=== PATIENT | male | born 1950 | race Caucasian/White ===

== ENCOUNTER 2018-12-01 13:31 | Inpatient (IN) | payer MEDICARE | END 2018-12-05 11:35 | disposition home or self-care (01) | LOC: ER 13:31 → OVERFLOW 20:57 → EAST 21:54 | DX: N20.0 Calculus of kidney (principal); N39.0 Urinary tract infection, site not specified; R00.0 Tachycardia, unspecified; E66.01 Morbid (severe) obesity due to excess calories; E11.8 Type 2 diabetes mellitus with unspecified complications; G57.00 Lesion of sciatic nerve, unspecified lower limb; E78.00 Pure hypercholesterolemia, unspecified; N40.0 Benign prostatic hyperplasia without lower urinary tract symptoms; A49.02 Methicillin resistant Staphylococcus aureus infection, unspecified site; Z22.322 Carrier or suspected carrier of Methicillin resistant Staphylococcus aureus ==

== ENCOUNTER 2018-12-06 13:21 | Emergency (ER) | payer MEDICARE ==
[~2018-12-06] VITALS: Ht 175.3 cm; Wt 99.8 kg
[~2018-12-06 13:21] MED LIST: ATOR20TA50 PO; DOXY-216 PO; FLUO20CA19 PO; GABA300C10 PO; GLIP-115 PO; OXY10CRT PO; OXYB15TA12 PO; PREG50CA PO; SACC250C PO; SULF1TAB60 PO; TAMS0.4C36 PO; TIZA4CAP PO; ZOLP10TA6 PO
[2018-12-06 13:47] VITALS: BP 185/76
[2018-12-06 14:45] LABS: INR 0.94 (0.9-1.15); Partial Thromboplastin Time 33.4 sec (23.78-33.04); Prothrombin Time 10.1 sec (9.27-12.13)
[2018-12-06 14:49] LABS: Albumin 3.4 g/dL (3.4-5.0); Anion Gap 11 (5-15); Aspartate Aminotransferase 35 U/L (15-37); Basophils # (auto) 0 uL; Basophils % (auto) 0.3 % (0.0-2.0); Blood Urea Nitrogen 17 mg/dL (7-18); Calcium 9.1 mg/dL (8.5-10.1); Carbon Dioxide 24 mmol/L (21-32); Chloride 101 mmol/L (98-107); Eosinophils # (auto) 0 uL; Eosinophils % (auto) 0.9 % (0.0-7.0); GFR African American 89 mL/min; GFR Non-African American 74 mL/min; Glucose 357 mg/dL (74-106); Hematocrit 41.7 % (41.0-53.0); Hemoglobin 14.2 g/dL (13.5-17.5); Lymphocytes # (auto) 0.5 uL; Lymphocytes % (auto) 12.7 % (10.0-50.0); Mean Corpuscular Hemoglobin 31.4 pg (28.0-32.0); Mean Corpuscular Volume 92.4 fL (80.0-100.0); Monocytes # (auto) 0.4 uL; Monocytes % (auto) 9.3 % (0.0-12.0); Neutrophils # (auto) 3.3 uL; Neutrophils % (auto) 76.8 % (37.0-80.0); Nucleated Red Blood Cells % 0.1 %; Platelet Count (auto) 160 10^3/uL (140-450); Potassium 3.9 mmol/L (3.5-5.1); Red Blood Cells 4.52 10^6/uL (4.5-5.90); Red Cell Distribution Width 13.3 % (11.8-14.3); Sodium 136 mmol/L (136-145); White Blood Cell 4.3 10^3/uL (4.4-10.8)
[2018-12-06 14:53] LABS: Alanine Aminotransferase 49 U/L (16-61); Alkaline Phosphatase 93 U/L (45-117); Bilirubin, Total 0.3 mg/dL (0.2-1.0); Total Protein 7.8 g/dL (6.4-8.2)
== END 2018-12-06 17:56 | disposition left against medical advice (07) ==
LOC: ER 13:28
DX: R06.02 Shortness of breath (principal); R07.9 Chest pain, unspecified; Z53.21 Procedure and treatment not carried out due to patient leaving prior to being seen by health care provider
CPT/HCPCS: 36415; 71046; 80053; 84484; 85025; 85610; 85730; 93005; 94761

== ENCOUNTER 2019-12-23 15:30 | Inpatient (IN) | payer MEDICARE ==
[~2019-12-23] VITALS: Ht 170.2 cm; Wt 86.3 kg
[~2019-12-23 15:30] MED LIST changes: -DOXY-216 PO; +DOXY-286 PO; -GLIP-115 PO; +GLIP5TAB12 PO
[2019-12-23] MEDS ORDERED: SODIUM CHLORIDE 0.9% 1,000 ML IVB ONE (15:48)
[2019-12-23] MEDS ORDERED: ONDANSETRON HCL 4 MG/2 ML VIAL IV ONE (16:00)
[2019-12-23] MEDS ORDERED: MORPHINE SULFATE 4 MG/ML SYR/VIAL IV ONE (16:00)
[2019-12-23 16:31] LABS: Basophils # (auto) 0 10 ^3/uL (0-0.2); Basophils % (auto) 0.3 % (0.0-2.0); Eosinophils # (auto) 0 10 ^3/uL (0-0.8); Eosinophils % (auto) 0.6 % (0.0-7.0); Hematocrit 38.6 % (41.0-53.0); Hemoglobin 13.2 g/dL (13.5-17.5); Lymphocytes # (auto) 1.2 10 ^3/uL (0.4-5.4); Lymphocytes % (auto) 15.4 % (10.0-50.0); Mean Corpuscular Hgb Conc. 34.1 g/dL (32.0-36.0); Monocytes # (auto) 0.7 10 ^3/uL (0-1.3); Monocytes % (auto) 9.1 % (0.0-12.0); Neutrophils # (auto) 5.7 10 ^3/uL (1.6-8.6); Neutrophils % (auto) 74.6 % (37.0-80.0); Nucleated Red Blood Cells % 0.1 %; Platelet Count (auto) 248 10^3/uL (140-450); Red Blood Cells 4.11 10^6/uL (4.5-5.90); White Blood Cell 7.7 10^3/uL (4.4-10.8)
[2019-12-23 16:39] LABS: Albumin 3.8 g/dL (3.4-5.0); Calcium 9.8 mg/dL (8.5-10.1); Potassium 3.1 mmol/L (3.5-5.1)
[2019-12-23 16:42] LABS: BUN/Creatinine Ratio 18.4; Bilirubin, Total 5.1 mg/dL (0.2-1.0); Total Protein 8.7 g/dL (6.4-8.2)
[2019-12-23] MEDS ORDERED: POTASSIUM CHL 20MEQ/100ML 100 ML IV ONE (17:00)
[2019-12-23] MEDS ORDERED: cefTRIAXone 1GM/50ML D5W 50 ML IV ONE (19:30)
[2019-12-23] MEDS ORDERED: DEXTROSE (50%) 50ML SYRG IV PRN (19:30)
[2019-12-23] MEDS ORDERED: NITROGLYCERIN 0.4 MG SL TAB SL PRN (19:30)
[2019-12-23] MEDS ORDERED: MORPHINE SULF INJ 2 MG/ML SYRINGE 1ML IV PRN ×2 (19:30)
[2019-12-23] MEDS: FAMOTIDINE (10MG/ML) 2ML VL IV SCH (20:16)
[2019-12-23] MEDS: SODIUM CHLORIDE 0.9% 1,000 ML IV SCH (20:16)
[2019-12-23] MEDS: PROMETHAZINE HCL 25 MG/ML 1ML IV PRN (20:17)
[2019-12-23] MEDS: MORPHINE SULF INJ 2 MG/ML SYRINGE 1ML IV PRN ×3 (20:17→22:29)
[2019-12-23] MEDS: metroNIDAZOLE 500MG/100ML 100 ML IV SCH (22:00)
[2019-12-23] MEDS ORDERED: HYDR25TA4 PO (22:51)
[2019-12-23] MEDS ORDERED: ASPI81CH59 PO (22:51)
[2019-12-23] MEDS ORDERED: DULO60CA PO (22:51)
[2019-12-23] MEDS ORDERED: FINA5TAB4 PO (22:51)
[2019-12-23] MEDS ORDERED: CRAN1260 PO (22:51)
[2019-12-23] MEDS ORDERED: CYAN1TAB14 PO (22:51)
[2019-12-23] MEDS ORDERED: LISI-646 PO (22:51)
[2019-12-23] MEDS ORDERED: POTATAB17 PO (22:52)
[2019-12-23] MEDS ORDERED: MELA10CA2 OR (22:52)
[2019-12-23 22:56] VITALS: BP 168/92
[2019-12-24] MEDS: MORPHINE SULF INJ 2 MG/ML SYRINGE 1ML IV PRN (01:01)
[2019-12-24] MEDS: PROMETHAZINE HCL 25 MG/ML 1ML IV PRN (01:03)
[2019-12-24] MEDS ORDERED: ONDANSETRON HCL 4 MG/2 ML VIAL ONE (02:33)
[2019-12-24 04:51] VITALS: BP 184/93
[2019-12-24 05:53] LABS: Basophils # (auto) 0.1 10 ^3/uL (0-0.2); Basophils % (auto) 1.1 % (0.0-2.0); Eosinophils # (auto) 0 10 ^3/uL (0-0.8); Eosinophils % (auto) 0.1 % (0.0-7.0); Hematocrit 37.4 % (41.0-53.0); Lymphocytes # (auto) 0.3 10 ^3/uL (0.4-5.4); Lymphocytes % (auto) 2.5 % (10.0-50.0); Mean Corpuscular Hemoglobin 32.3 pg (28.0-32.0); Mean Corpuscular Hgb Conc. 34.8 g/dL (32.0-36.0); Monocytes # (auto) 0.5 10 ^3/uL (0-1.3); Monocytes % (auto) 5.3 % (0.0-12.0); Neutrophils # (auto) 9.2 10 ^3/uL (1.6-8.6); Platelet Count (auto) 226 10^3/uL (140-450); Red Blood Cells 4.02 10^6/uL (4.5-5.90); Red Cell Distribution Width 15.2 % (11.8-14.3)
[2019-12-24] MEDS: metroNIDAZOLE 500MG/100ML 100 ML IV SCH ×3 (06:00→21:58)
[2019-12-24] MEDS: InsuLIN REG 1unit/0.01ml Soln (100units/ml) SC SCH ×4 (06:00→18:34)
[2019-12-24] MEDS: ACCU-CHEK COMFORT CURVE STRIP VI SCH ×4 (06:00→18:31)
[2019-12-24 06:15] LABS: Potassium 3.9 mmol/L (3.5-5.1)
[2019-12-24 06:16] LABS: Amylase 76 U/L (25-115); Lipase 986 U/L (73-393)
[2019-12-24 06:20] LABS: Albumin 3.4 g/dL (3.4-5.0); BUN/Creatinine Ratio 20.4; Calcium 9.7 mg/dL (8.5-10.1)
[2019-12-24 06:23] LABS: Bilirubin, Total 6.6 mg/dL (0.2-1.0); Total Protein 8.4 g/dL (6.4-8.2)
--- NOTE | 2019-12-24 07:30 | NUR ---
Opening Shift Note Assumed care of patient, awake and alert. No S/S of distress/SOB or pain. Bed in lowest and locked position with side rails up x2 and call light with in reach. Instructed on POC and to call for assist PRN, will continue to monitor for changes Q1hr and PRN.
[2019-12-24 08:00] VITALS: BP 157/92
[2019-12-24] MEDS: SODIUM CHLORIDE 0.9% 1,000 ML IV SCH ×2 (08:11→15:30)
[2019-12-24 08:36] VITALS: BP 157/92
[2019-12-24] MEDS: FAMOTIDINE (10MG/ML) 2ML VL IV SCH ×2 (09:12→21:58)
[2019-12-24] MEDS: cefTRIAXone 1GM/50ML D5W 50 ML IV SCH (09:12)
--- NOTE | 2019-12-24 10:59 | NUR ---
SPOKE TO THE PATIENTS . PER THE PATIENTS , PHYLLIS, THE PATIENT'S SPINAL STIMULATOR AND MORPHINE PUMP ARE BOTH DEVICES OF [employer]. THE PATIENTS MORPHINE PUMP WAS REFILLED ON 12/20/2019 AND IS REFILLED EVERY 2 MONTHS. PER THE PATIENTS , THE PATIENT HAS A HISTORY OF HAVING PERIODS OF CONFUSION. PHYLLIS ALSO PROVIDED AN UPDATE OF THE PATIENTS MEDICATION RECONCILIATION.
--- NOTE | 2019-12-24 11:11 | NUR ---
SPOKE TO DR. ARCOS. RN NOTIFIED DR. ARCOS THAT THE PATIENT HAS A MORPHINE PUMP AND SPINAL STIMULATOR. RN ALSO NOTIFIED THE MD THAT PATIENT HAD A BLOODY NOSE LAST NIGHT AND PER SLICE CUTTING MACHINE OPERATOR HELPER, THE BLOOD HAD A CLEAR RING AROUND IT. MD AWARE. PER DR. ARCOS, CONTINUE WITH THE MRSA SWAB. NO NEW ORDERS RECEIVED AT THIS TIME.
[2019-12-24] MEDS ORDERED: OXY5T PO (11:12)
[2019-12-24] MEDS ORDERED: TAMS0.4C36 PO (11:12)
[2019-12-24] MEDS ORDERED: HYDROmorphone HCL 2 MG/ML VL IV PRN (11:30)
[2019-12-24] MEDS ORDERED: HYDROcodone-ACET 5/325MG TAB PO PRN (11:30)
[2019-12-24] MEDS ORDERED: IOHEXOL 300 MG/ML 100ML BOTTLE IJ ONE (11:50)
[2019-12-24] MEDS ORDERED: LIDOCAINE 2%HCL (LOCAL ANESTH.) INJ 20ML MDV ONE ×3 (11:52→15:12)
[2019-12-24] MEDS ORDERED: fentaNYL CITRATE 100 MCG/2 ML VL IV ONE (12:00)
[2019-12-24] MEDS ORDERED: MIDAZOLAM HCL 1MG/1ML-2 ML VIAL IV ONE (12:00)
[2019-12-24 12:17] LABS: INR 1.23 (0.9-1.15); Partial Thromboplastin Time 28.9 sec (23.64-32.05)
--- NOTE | 2019-12-24 12:46 | NUR ---
PATIENT TAKEN TO RADIOLOGY.
[2019-12-24] MEDS ORDERED: FLUMAZENIL 0.1 MG/ML INJ 10ML MDV IV ONE (12:47)
[2019-12-24] MEDS ORDERED: NALOXONE HCL 0.4 MG/ML VIAL ONE (12:47)
[2019-12-24 13:16] VITALS: BP 101/56
[2019-12-24] MEDS ORDERED: GELATIN 1 SPONGE SIZE 50 TOP ONE ×2 (13:22→16:11)
[2019-12-24] MEDS ORDERED: fentaNYL CITRATE 100 MCG/2 ML VL ONE (14:11)
[2019-12-24] MEDS ORDERED: MIDAZOLAM HCL 1MG/1ML-2 ML VIAL ONE (14:12)
[2019-12-24] MEDS ORDERED: LABETALOL HCL 5 MG/ML ML 20ML VIAL IV ONE (14:41)
[2019-12-24] MEDS ORDERED: diphenhdrAMINE HCL 50 MG/1 ML VL ONE (14:46)
[2019-12-24] MEDS ORDERED: IODIXANOL 320MG/ML 100ML BTL IV ONE (16:29)
--- NOTE | 2019-12-24 16:30 | NUR ---
RN RECEIVED PATIENTS BELONGINGS FROM THE PATIENTS , PHYLLIS. BELONGINGS WERE PLACED AT THE PATIENTS BEDSIDE AFTER BELONGINGS FORM SIGNED. RN NOTIFIED PHYLLIS THAT THE PATIENT DOES HAVE A WALLET AND PERSONAL CHECKS AT THE BEDSIDE. PER PHYLLIS, SHE WILL COME BACK LATER AND PICK THEM UP ONCE THE PATIENT IS OUT OF THE PROCEDURE.
--- NOTE | 2019-12-24 16:47 | NUR ---
RECEIVED REPORT FROM VISITING PROFESSOR RN. AWAITING FOR PATIENT ARRIVAL.
--- NOTE | 2019-12-24 17:15 | NUR ---
PATIENT ARRIVED FROM HEALTH CLINICIAN. BILIARY DRAIN IS PATENT AND DRAINING. NO S/S OF DISTRESS OR SOB. PATIENT PLACED ON 2L NC SATURATING AT 96%. VITALS ARE STABLE. BED IN LOWEST AND LOCKED POSITION AND SIDE RAILS UP X2 AND CALL LIGHT WITHIN REACH AND BED ALARM ON. EDUCATED PATIENT TO CALL IF THEY NEED ASSISTANCE. PATIENT VERBALIZED UNDERSTANDING.
[2019-12-24] MEDS: TAMSULOSIN HYDROCHLORIDE 0.4 MG CAP PO SCH (18:29)
--- NOTE | 2019-12-24 18:30 | NUR ---
RN NOTIFIED THE PATIENTS THAT THE PATIENT RETURNED FROM THE PROCEDURE. RN UPDATED THE ON THE PATIENTS CONDITION AND THE VERBALIZED UNDERSTANDING.
[2019-12-24] MEDS: HYDROmorphone HCL 2 MG/ML VL IV PRN (21:59)
[2019-12-24 22:00] VITALS: BP 138/83
[2019-12-25] VITALS (7 sets, daily range): BP systolic 83–156; BP diastolic 43–86
[2019-12-25] MEDS: HYDROmorphone HCL 2 MG/ML VL IV PRN (01:49)
[2019-12-25] MEDS: SODIUM CHLORIDE 0.9% 1,000 ML IV SCH ×2 (02:12→12:38)
[2019-12-25] MEDS ORDERED: ACETAMINOPHEN 650 MG RECT SUPP PR PRN (05:30)
[2019-12-25 05:39] LABS: Basophils # (auto) 0 10 ^3/uL (0-0.2); Basophils % (auto) 0.2 % (0.0-2.0); Eosinophils # (auto) 0 10 ^3/uL (0-0.8); Hematocrit 36.5 % (41.0-53.0); Hemoglobin 12.6 g/dL (13.5-17.5); Lymphocytes # (auto) 0.8 10 ^3/uL (0.4-5.4); Lymphocytes % (auto) 7.1 % (10.0-50.0); Mean Corpuscular Hgb Conc. 34.6 g/dL (32.0-36.0); Mean Corpuscular Volume 92.3 fL (80.0-100.0); Monocytes # (auto) 0.6 10 ^3/uL (0-1.3); Neutrophils # (auto) 9.4 10 ^3/uL (1.6-8.6); Neutrophils % (auto) 86.7 % (37.0-80.0); Platelet Count (auto) 200 10^3/uL (140-450); Red Blood Cells 3.95 10^6/uL (4.5-5.90); Red Cell Distribution Width 15.4 % (11.8-14.3); White Blood Cell 10.9 10^3/uL (4.4-10.8)
[2019-12-25 05:49] LABS: Albumin 3.1 g/dL (3.4-5.0); Calcium 9.2 mg/dL (8.5-10.1); Potassium 3.4 mmol/L (3.5-5.1)
[2019-12-25 05:51] LABS: BUN/Creatinine Ratio 29.1
[2019-12-25 05:54] LABS: Bilirubin, Total 6.3 mg/dL (0.2-1.0); Total Protein 7.6 g/dL (6.4-8.2)
[2019-12-25] MEDS: cefTRIAXone 1GM/50ML D5W 50 ML IV SCH (09:35)
[2019-12-25] MEDS: FAMOTIDINE (10MG/ML) 2ML VL IV SCH ×2 (09:35→21:47)
[2019-12-25] MEDS: LISINOPRIL 10 MG TAB PO SCH (09:36)
[2019-12-25] MEDS: HYDROcodone-ACET 5/325MG TAB PO PRN (09:51)
--- NOTE | 2019-12-25 10:18 | NUR ---
SPOKE TO DR. Diann MUHAMMAD. RN NOTIFIED DR. MUHAMMAD THAT THE PATIENTS HEART RATE IS IN THE 140'S. MD AWARE. NEW ORDERS RECEIVED READ BACK AND VERIFIED. SEE EMR FOR ORDERS.
[2019-12-25] MEDS ORDERED: METOPROLOL TARTRATE 1MG/1ML-5ML VIAL IV ONE (10:30)
--- NOTE | 2019-12-25 11:57 | NUR ---
SPOKE TO DR. MUHAMMAD. RN NOTIFIED DR. MUHAMMAD THAT THE PATIENT'S BLOOD PRESSURE IS 83/40. MD AWARE. NEW ORDERS RECEIVED, READ BACK AND VERIFIED. SEE EMR FOR ORDERS.
--- NOTE | 2019-12-25 12:30 | NUR ---
SPOKE TO DR. VENCES. RN UPDATED DR. VENCES ON THE PATIENTS STATUS. MD AWARE. NEW ORDERS RECEIVED READ BACK AND VERIFIED. SEE EMR FOR ORDERS.
[2019-12-25] MEDS: InsuLIN REG 1unit/0.01ml Soln (100units/ml) SC SCH ×3 (12:37→18:41)
[2019-12-25] MEDS: ACCU-CHEK COMFORT CURVE STRIP VI SCH ×3 (12:37→18:42)
[2019-12-25] MEDS ORDERED: PPN PER PHARMACY 0 ML IV SCH (12:45)
--- NOTE | 2019-12-25 13:00 | NUR ---
WENDI PICC RN.
--- NOTE | 2019-12-25 13:00 | NUR ---
IV insertion IV access obtained, via clean sterile technique by inserting 20 gauge catheter at LEFT FA after 1 attempt(s). IV secured properly. No trauma to site. Patient tolerated well.
[2019-12-25 13:17] LABS: Magnesium 1.6 mg/dL (1.6-2.6)
[2019-12-25 13:22] LABS: Phosphorus 1.3 mg/dL (2.5-4.90); Pre Albumin 11.5 mg/dL (20.0-40.0)
--- NOTE | 2019-12-25 14:00 | NUR ---
CHANGED BILIARY DRAINAGE BAG. 1050ML REMOVED WITH DRAINAGE BAG.
[2019-12-25] MEDS: metroNIDAZOLE 500MG/100ML 100 ML IV SCH ×2 (14:24→21:47)
[2019-12-25] MEDS: POTASSIUM CHLORIDE 20 MEQ in LACTATED RINGER'S 1,000 ML IV SCH ×2 (16:43→21:25)
[2019-12-25] MEDS: TAMSULOSIN HYDROCHLORIDE 0.4 MG CAP PO SCH (18:41)
[2019-12-26] MEDS: ACCU-CHEK COMFORT CURVE STRIP VI SCH ×4 (00:02→17:37)
[2019-12-26] MEDS: InsuLIN REG 1unit/0.01ml Soln (100units/ml) SC SCH ×4 (00:08→17:36)
--- NOTE | 2019-12-26 02:30 | NUR ---
Received pt from ROCIO Scott. Pt in lowest possible position with call light within reach. Pt does not have SOB, but complains of pain in his lower back. Will continue to monitor pt.
[2019-12-26] MEDS: HYDROmorphone HCL 2 MG/ML VL IV PRN ×4 (03:35→21:47)
[2019-12-26 05:16] VITALS: BP 138/72
[2019-12-26] MEDS: metroNIDAZOLE 500MG/100ML 100 ML IV SCH ×3 (06:12→21:40)
[2019-12-26] MEDS: POTASSIUM CHLORIDE 20 MEQ in LACTATED RINGER'S 1,000 ML IV SCH ×2 (06:12→13:15)
--- NOTE | 2019-12-26 06:57 | NUR ---
Biliary drainage bag started 12/24 1900 with 300ml ended this morning 12/25 at 0700 with 650ml in the biliary drainage bag.
--- NOTE | 2019-12-26 07:00 | NUR ---
Closing note pt asleep in the lowest possible position with bed rails up x2 and call light within reach, will endorse to day shift.
--- NOTE | 2019-12-26 07:10 | NUR ---
Opening Shift Note Assumed care of patient, awake and alert. No S/S of distress/SOB or pain. Instructed on POC and to call for assist PRN, will continue to monitor for changes Q1hr and PRN.
--- NOTE | 2019-12-26 08:33 | NUR ---
md luna rounded on patient
[2019-12-26 08:38] VITALS: BP 146/68
--- NOTE | 2019-12-26 09:00 | NUR ---
noted right forearm iv infiltrated removed per pt request tolerated well dry dressing in place. noted biliary drain fill 1300ml bag changed
[2019-12-26] MEDS: cefTRIAXone 1GM/50ML D5W 50 ML IV SCH (09:31)
[2019-12-26] MEDS: FAMOTIDINE (10MG/ML) 2ML VL IV SCH ×2 (09:32→21:40)
[2019-12-26] MEDS: LISINOPRIL 10 MG TAB PO SCH (09:32)
--- NOTE | 2019-12-26 09:34 | NUR ---
md ryan rounded on patient new orders for atarax due to itching
[2019-12-26] MEDS ORDERED: hydrOXYzine 25 MG TAB or CAP PO PRN (09:45)
[2019-12-26] MEDS: HYDROcodone-ACET 5/325MG TAB PO PRN (11:48)
[2019-12-26 12:46] VITALS: BP 140/76
[2019-12-26] MEDS: ONDANSETRON HCL 4 MG/2 ML VIAL IV PRN ×2 (14:12→21:46)
[2019-12-26 16:56] VITALS: BP 149/86
[2019-12-26] MEDS: TAMSULOSIN HYDROCHLORIDE 0.4 MG CAP PO SCH (17:36)
--- NOTE | 2019-12-26 19:00 | NUR ---
OPENING NOTE Received report from day shift RN. Patient is A&O X's 3-4 with no s/s of distress and reports no pain at this time. Patient reports feeling "good." Educated patient on POC and to use call light when in need of assistance. Patient verbalized understanding. Bed is in lowest/locked position with side rails up X's 2 and call light is within reach of patient. Drain to right abdominal is patent and draining dark fluid.Will continue care.
[2019-12-26 22:00] VITALS: BP 149/87
[2019-12-27] MEDS: ACCU-CHEK COMFORT CURVE STRIP VI SCH ×4 (00:30→18:00)
[2019-12-27] MEDS: InsuLIN REG 1unit/0.01ml Soln (100units/ml) SC SCH ×4 (00:30→18:00)
[2019-12-27] MEDS: POTASSIUM CHLORIDE 20 MEQ in LACTATED RINGER'S 1,000 ML IV SCH ×3 (00:33→15:30)
[2019-12-27] MEDS: HYDROmorphone HCL 2 MG/ML VL IV PRN ×4 (01:14→16:57)
--- NOTE | 2019-12-27 01:23 | NUR ---
PAIN Patient c/o constant pain to right abdominal area. rated at an 8. gave pain medication as ordered. Will monitor
--- NOTE | 2019-12-27 01:44 | NUR ---
PAIN ASSESSMENT Patient is resting in bed with no s/s of discomfort or distress noted. Patient appears comfortable. Will continue care
[2019-12-27] MEDS: HYDROcodone-ACET 5/325MG TAB PO PRN (02:50)
--- NOTE | 2019-12-27 03:58 | NUR ---
BILIARY DRAINAGE BAG about 700 ml of fluid. House Sup notified that we need a new bag
--- NOTE | 2019-12-27 04:29 | NUR ---
NEW BILIARY DRAINAGE BAG House Sup brought up new bag. The bag was replaced and it is now draining. Patient comfortable. Will continue care
[2019-12-27 04:59] LABS: Basophils # (auto) 0 10 ^3/uL (0-0.2); Basophils % (auto) 0.2 % (0.0-2.0); Eosinophils # (auto) 0 10 ^3/uL (0-0.8); Eosinophils % (auto) 0.1 % (0.0-7.0); Hematocrit 32.9 % (41.0-53.0); Hemoglobin 11.3 g/dL (13.5-17.5); Lymphocytes # (auto) 0.4 10 ^3/uL (0.4-5.4); Lymphocytes % (auto) 6.1 % (10.0-50.0); Mean Corpuscular Hemoglobin 32.6 pg (28.0-32.0); Mean Corpuscular Hgb Conc. 34.4 g/dL (32.0-36.0); Mean Corpuscular Volume 94.6 fL (80.0-100.0); Monocytes # (auto) 0.5 10 ^3/uL (0-1.3); Monocytes % (auto) 8.6 % (0.0-12.0); Neutrophils # (auto) 5.4 10 ^3/uL (1.6-8.6); Platelet Count (auto) 176 10^3/uL (140-450); Red Blood Cells 3.48 10^6/uL (4.5-5.90); Red Cell Distribution Width 15.5 % (11.8-14.3); White Blood Cell 6.3 10^3/uL (4.4-10.8)
[2019-12-27 05:21] LABS: Albumin 2.7 g/dL (3.4-5.0); Calcium 9.4 mg/dL (8.5-10.1); Potassium 3.3 mmol/L (3.5-5.1)
[2019-12-27 05:24] LABS: BUN/Creatinine Ratio 32.7; Bilirubin, Total 2.3 mg/dL (0.2-1.0); Total Protein 7.5 g/dL (6.4-8.2)
[2019-12-27 05:27] LABS: INR 1.39 (0.9-1.15)
[2019-12-27 05:30] VITALS: BP 147/74
[2019-12-27] MEDS: metroNIDAZOLE 500MG/100ML 100 ML IV SCH ×3 (06:24→20:56)
[2019-12-27 08:43] VITALS: BP 95/52
--- NOTE | 2019-12-27 09:45 | NUR ---
PAIN Patient c/o constant pain to right abdominal area. rated at an 8. gave pain medication as ordered. Will monitor
[2019-12-27] MEDS: ONDANSETRON HCL 4 MG/2 ML VIAL IV PRN ×3 (09:48→16:57)
[2019-12-27] MEDS: FAMOTIDINE (10MG/ML) 2ML VL IV SCH ×2 (09:48→20:56)
[2019-12-27] MEDS: cefTRIAXone 1GM/50ML D5W 50 ML IV SCH (09:49)
[2019-12-27] MEDS: LISINOPRIL 10 MG TAB PO SCH (10:00)
--- NOTE | 2019-12-27 10:15 | NUR ---
PAIN RE-ASSESSMENT Pain level moderate 5/10 and patient states this is tolerable; provided a heat pack and re-educated to repositioning to alleviate pain.
[2019-12-27] MEDS ORDERED: MICAFUNGIN SODIUM 100 MG in SODIUM CHL 0.9% 100 ML IV ONE (11:00)
[2019-12-27] MEDS ORDERED: POTASSIUM CHL 20 Meq TABLET PO ONE (11:00)
[2019-12-27] MEDS: Glucerna Carbsteady SHAKE Stawberry 8oz PO SCH ×2 (12:00→18:00)
[2019-12-27 12:38] VITALS: BP 101/55
--- NOTE | 2019-12-27 13:00 | NUR ---
PAIN Patient c/o constant pain to right abdominal area. rated at an 8. gave pain medication as ordered. Will monitor
--- NOTE | 2019-12-27 13:30 | NUR ---
PAIN RE-ASSESSMENT Pain level moderate 5/10 and patient states this is tolerable; provided a heat pack and re-educated to repositioning to alleviate pain.
--- NOTE | 2019-12-27 15:00 | NUR ---
S/W PATIENTS BRIAN REQUESTED PATIENTS ELIZABET.
--- NOTE | 2019-12-27 15:15 | NUR ---
PICC LINE RN BEDSIDE
--- NOTE | 2019-12-27 15:31 | NUR ---
Midline Placement: Patient educated on need for midline placement. All risks and benefits explained and all questions and concerns addresses prior to procedure. 18g/10cm midline inserted via right cephalic vein using Ultrasound. Sterile technique utilized. Blood return obtained from lumen and flushed easily with NS using proper technique. Midline secured with saline lock; biodisc and occlusive dressing applied. Primary RN notified. Midline lot #[id number]
[2019-12-27] MEDS: TAMSULOSIN HYDROCHLORIDE 0.4 MG CAP PO SCH (16:56)
--- NOTE | 2019-12-27 17:15 | NUR ---
HOSPITALIST PAGED FOR A BS OF 500. PATIENT ASYPTOMATIC.
[2019-12-27 17:23] VITALS: BP 159/76
--- NOTE | 2019-12-27 17:33 | NUR ---
ELEVATED TEMP 100.[address], NO COUGH.
--- NOTE | 2019-12-27 17:34 | NUR ---
PATIENT CUELLAR WAS RETURNED AND SIGNED.
--- NOTE | 2019-12-27 19:36 | NUR ---
ENDORSED CARE TO RN
[2019-12-27 21:38] VITALS: BP 141/71
--- NOTE | 2019-12-28 00:09 | NUR ---
CRITICAL BLOOD SUGAR - PAGED HOSPITALIST blood sugar at 480. waiting call back from hospitalist
[2019-12-28] MEDS: InsuLIN REG 1unit/0.01ml Soln (100units/ml) SC SCH ×3 (00:15→16:46)
[2019-12-28] MEDS: ACCU-CHEK COMFORT CURVE STRIP VI SCH ×6 (00:15→21:16)
--- NOTE | 2019-12-28 00:26 | NUR ---
RECEIVED CALL BACK FROM HOSPITALIST He is aware of critical blood sugar. received new orders.
[2019-12-28] MEDS ORDERED: DEXTROSE (50%) 50ML SYRG IV PRN ×2 (00:45→10:30)
[2019-12-28] MEDS: ONDANSETRON HCL 4 MG/2 ML VIAL IV PRN ×3 (01:25→21:17)
[2019-12-28] MEDS: HYDROmorphone HCL 2 MG/ML VL IV PRN ×3 (01:25→21:17)
[2019-12-28] MEDS: POTASSIUM CHLORIDE 20 MEQ in LACTATED RINGER'S 1,000 ML IV SCH ×2 (03:28→10:30)
[2019-12-28] MEDS ORDERED: InsuLIN REG 1unit/0.01ml Soln (100units/ml) SC SCH ×2 (04:00→22:00)
[2019-12-28] MEDS: HYDROcodone-ACET 5/325MG TAB PO PRN (04:05)
[2019-12-28 05:06] LABS: Basophils # (auto) 0 10 ^3/uL (0-0.2); Basophils % (auto) 0.1 % (0.0-2.0); Eosinophils # (auto) 0.1 10 ^3/uL (0-0.8); Eosinophils % (auto) 0.6 % (0.0-7.0); Hematocrit 36.5 % (41.0-53.0); Hemoglobin 12.1 g/dL (13.5-17.5); Lymphocytes # (auto) 1.3 10 ^3/uL (0.4-5.4); Lymphocytes % (auto) 14.5 % (10.0-50.0); Mean Corpuscular Hemoglobin 31.8 pg (28.0-32.0); Mean Corpuscular Hgb Conc. 33.3 g/dL (32.0-36.0); Mean Corpuscular Volume 95.7 fL (80.0-100.0); Monocytes # (auto) 0.9 10 ^3/uL (0-1.3); Monocytes % (auto) 9.8 % (0.0-12.0); Neutrophils # (auto) 6.8 10 ^3/uL (1.6-8.6); Platelet Count (auto) 234 10^3/uL (140-450); Red Blood Cells 3.81 10^6/uL (4.5-5.90)
[2019-12-28 05:27] LABS: Calcium 10.2 mg/dL (8.5-10.1); Potassium 3.3 mmol/L (3.5-5.1)
[2019-12-28] MEDS: metroNIDAZOLE 500MG/100ML 100 ML IV SCH ×3 (05:28→21:17)
--- NOTE | 2019-12-28 05:28 | NUR ---
PAIN REASSESSMENT Patient is sleeping at this time. Patient shows no s/s of discomfort
[2019-12-28 05:32] VITALS: BP 142/66
[2019-12-28 05:33] LABS: BUN/Creatinine Ratio 25.7; Bilirubin, Total 2.3 mg/dL (0.2-1.0); Total Protein 8.2 g/dL (6.4-8.2)
--- NOTE | 2019-12-28 05:42 | NUR ---
SERUM GLUCOSE LAB 418. last accu check was 375 and 15 units of regular insulin was given. Hospitalist already made aware of critical blood glucose and changes were made to the sliding scale.
--- NOTE | 2019-12-28 08:12 | NUR ---
Opening Shift Note Received report on the patient. Awake lying in bed. Discussed plan of care with the patient. The patient does not show any signs of distress at this time. Chronic pain managed well ; patient reported moderate pain 7/10 as his tolerable level; will continue to monitor pain level. Midline patent fluids running as ordered. Hepatic drain patent , fluid deep dark hemalatha 350ml in bag. Bed is in the lowest position, side rails up x2, and the call light is within reach. Will continue to monitor.
[2019-12-28 08:40] VITALS: BP 133/72
[2019-12-28] MEDS: FAMOTIDINE (10MG/ML) 2ML VL IV SCH ×2 (08:48→21:17)
[2019-12-28] MEDS: cefTRIAXone 1GM/50ML D5W 50 ML IV SCH (08:48)
[2019-12-28] MEDS: Glucerna Carbsteady SHAKE Stawberry 8oz PO SCH ×3 (08:51→18:00)
--- NOTE | 2019-12-28 09:11 | NUR ---
BLOOD SUGAR 292.
--- NOTE | 2019-12-28 09:12 | NUR ---
FYI-for discharge needs contact Lynnette at [facility] (phone number [phone]-----fax number [phone]).
[2019-12-28] MEDS: MICAFUNGIN SODIUM 100 MG in SODIUM CHL 0.9% 100 ML IV SCH (10:00)
[2019-12-28 13:04] VITALS: BP 104/64
[2019-12-28 17:08] VITALS: BP 145/70
[2019-12-28] MEDS: TAMSULOSIN HYDROCHLORIDE 0.4 MG CAP PO SCH (18:00)
--- NOTE | 2019-12-28 19:00 | NUR ---
OPENING NOTE Received report from day shift RN. Patient is A&O X's 4 with no s/s of distress and reports no pain at this time. Educated patient on POC and to use call light when in need of assistance. Patient verbalized understanding. Bed is in lowest/locked position with side rails up X's 2 and call light is within reach of patient. Bed alarm is on. Drain to right abdominal is patent and draining dark fluid.Will continue care.
--- NOTE | 2019-12-28 19:15 | NUR ---
ENDORSED CARE TO NIGHT RN. PAIN MANAGEMENT EFFECTIVE THROUGHOUT SHIFT. HEPATIC DRAIN PATENT DRAINED 1000 CC TOTAL FOR DAY SHIFT.
[2019-12-28 22:00] VITALS: BP 145/72
[2019-12-28] MEDS ORDERED: INSULIN LANTUS (GLARGINE) 1 /0.01ml (100units/ml) SC SCH (22:00)
--- NOTE | 2019-12-28 22:00 | NUR ---
PAIN REASSESSMENT Patient reports feeling comfortable and stating his pain is now at a 4-5 to his right abdomen/side and back pain. Repositioned patient with pillows.
[2019-12-29] MEDS: POTASSIUM CHLORIDE 20 MEQ in LACTATED RINGER'S 1,000 ML IV SCH (01:18)
[2019-12-29] MEDS: HYDROmorphone HCL 2 MG/ML VL IV PRN ×4 (02:08→17:25)
[2019-12-29] MEDS: ONDANSETRON HCL 4 MG/2 ML VIAL IV PRN ×4 (02:09→17:24)
[2019-12-29] MEDS: HYDROcodone-ACET 5/325MG TAB PO PRN ×2 (03:04→10:19)
--- NOTE | 2019-12-29 03:10 | NUR ---
ROUNDS/PAIN Patient reports that he feels more comfortable than what he did but he still has some right sided pain in his abdomen/back rating about a 5. Patient is repositioning self to help the pain. Educated patient on pain management and pain medication. Patient reports that he wants to take the Pep to see if that will help.
--- NOTE | 2019-12-29 03:44 | NUR ---
PATIENT SITTING ON CHAIR AT BEDSIDE All new linen change was done at this time. Patient sitting on chair at bedside with table try in front of him for safety. Call light is in patient's hands. Patient instructed to use call light when he is ready to get back into bed. Patient verbalized understanding. Will continue care.
--- NOTE | 2019-12-29 04:19 | NUR ---
PATIENT BACK INTO BED Helped patient back into bed at this time. Patient still complaining of pain to right side. Patient reports that it hurts more with movement. positioned patient with HOB elevated. Will continue care
[2019-12-29 05:00] VITALS: BP 105/67
[2019-12-29 05:01] LABS: Basophils # (auto) 0 10 ^3/uL (0-0.2); Basophils % (auto) 0.4 % (0.0-2.0); Eosinophils # (auto) 0 10 ^3/uL (0-0.8); Eosinophils % (auto) 0.1 % (0.0-7.0); Hematocrit 33.3 % (41.0-53.0); Hemoglobin 11.1 g/dL (13.5-17.5); Lymphocytes # (auto) 0.8 10 ^3/uL (0.4-5.4); Lymphocytes % (auto) 6.5 % (10.0-50.0); Mean Corpuscular Hemoglobin 31.8 pg (28.0-32.0); Mean Corpuscular Hgb Conc. 33.3 g/dL (32.0-36.0); Mean Corpuscular Volume 95.5 fL (80.0-100.0); Monocytes # (auto) 1.1 10 ^3/uL (0-1.3); Monocytes % (auto) 9.1 % (0.0-12.0); Neutrophils # (auto) 10.5 10 ^3/uL (1.6-8.6); Neutrophils % (auto) 83.9 % (37.0-80.0); Platelet Count (auto) 205 10^3/uL (140-450); Red Blood Cells 3.49 10^6/uL (4.5-5.90); Red Cell Distribution Width 15.7 % (11.8-14.3); White Blood Cell 12.6 10^3/uL (4.4-10.8)
[2019-12-29 05:22] LABS: Albumin 2.7 g/dL (3.4-5.0); BUN/Creatinine Ratio 27.8; Calcium 9.7 mg/dL (8.5-10.1); Potassium 4.3 mmol/L (3.5-5.1)
[2019-12-29 05:25] LABS: Bilirubin, Total 1.8 mg/dL (0.2-1.0); Total Protein 7.6 g/dL (6.4-8.2)
--- NOTE | 2019-12-29 06:00 | NUR ---
PAGED HOSPITALIST FOR CRITICAL BLOOD SUGAR accu check 403. lab blood glucose 449
[2019-12-29] MEDS: InsuLIN REG 1unit/0.01ml Soln (100units/ml) SC SCH ×5 (06:02→23:54)
[2019-12-29] MEDS: ACCU-CHEK COMFORT CURVE STRIP VI SCH ×5 (06:03→23:53)
[2019-12-29] MEDS: metroNIDAZOLE 500MG/100ML 100 ML IV SCH ×3 (06:04→22:53)
--- NOTE | 2019-12-29 06:59 | NUR ---
RECEIVED CALL BACK FROM FRANCISCO LOPEZ No new orders given for the critical blood sugar value. Patient received insulin as ordered per sliding scale.
[2019-12-29] MEDS ORDERED: INSULIN LANTUS (GLARGINE) 1 /0.01ml (100units/ml) SC SCH (07:00)
[2019-12-29] MEDS: Glucerna Carbsteady SHAKE Stawberry 8oz PO SCH ×3 (08:00→18:07)
--- NOTE | 2019-12-29 08:30 | NUR ---
percutaneous cholecystostomy tube drained 425.
[2019-12-29] MEDS: cefTRIAXone 1GM/50ML D5W 50 ML IV SCH (08:31)
[2019-12-29] MEDS: FAMOTIDINE (10MG/ML) 2ML VL IV SCH (08:31)
[2019-12-29 08:45] VITALS: BP 112/71
--- NOTE | 2019-12-29 09:17 | NUR ---
I called [facility] [phone] and left message for Traffic Engineering Technician Laura asking about transfer back in network.
[2019-12-29] MEDS: MICAFUNGIN SODIUM 100 MG in SODIUM CHL 0.9% 100 ML IV SCH (10:19)
--- NOTE | 2019-12-29 11:31 | NUR ---
Critical glucose Spoke with Doctor Danita peterson MD of critical blood sugar of 444 and recheck of 454. Per Md continue with protocol sliding scale.
--- NOTE | 2019-12-29 11:45 | NUR ---
percutaneous cholecystostomy tube drained 325
[2019-12-29] MEDS ORDERED: MUPIROCIN 2% OINT 15gm or 22gm TOP ONE (12:00)
[2019-12-29 12:42] VITALS: BP 141/68
--- NOTE | 2019-12-29 13:20 | NUR ---
Received phone call from Carie M/S/T director, per Carie she was informed from infection control that MRSA in [place] does not need Isolation precautions or PPE and all PPE needs to be taken down.
--- NOTE | 2019-12-29 13:30 | NUR ---
NUTRITION ASSESSMENT NOTES Please refer to link notes of nutrition screen form filed under the intervention section of the plan of care for further details. Est. Energy Needs: 6812-6618 kcal (17-20 kcal/kg BW). Est. Protein Needs: 73-88 gms/day (1.0-1.2 gms/kg Adj.BW). Will continue to monitor pertinent labs and reassess nutrient need prn Addendum: 12/29/19 at [address] Amended: Links added.
--- NOTE | 2019-12-29 15:23 | NUR ---
assessment Patient is a 69 year old male who is confused. Per patients Veronica prior to admission patient lived home with her and was independent. Per Veronica patient has a fww for home use when he is feeling ill or weak. Per Veronica patients PCP is Dr Berkowitz in [place]. Per Veronica she will transport patient home on discharge. I informed Veronica patients post discharge needs to be determined after biopsy results and PT eval. Veronica verbalized understanding and agreed to discharge plan home. Addendum: 12/29/19 at 1526 by Anita REYNOSO Amended: Links added.
[2019-12-29 16:34] VITALS: BP 144/74
--- NOTE | 2019-12-29 16:52 | NUR ---
PAGED DOCTOR JOSSELYN REGARDING CRITICAL BLOOD GLUCOSE READING. AWAITING CALL BACK.
--- NOTE | 2019-12-29 17:09 | NUR ---
PAGED GAS STOVE SERVICER HELPER HOSPITALIST GIGI SINGH AWAITING CALL BACK.
--- NOTE | 2019-12-29 17:23 | NUR ---
Spoke with Janet SINGH informed of critical blood glucose of 456 and repeated 471. New orders received see emr for orders.
[2019-12-29] MEDS: TAMSULOSIN HYDROCHLORIDE 0.4 MG CAP PO SCH (17:25)
[2019-12-29] MEDS ORDERED: DEXTROSE (50%) 50ML SYRG IV PRN (17:30)
--- NOTE | 2019-12-29 17:32 | NUR ---
percutaneous cholecystostomy tube drained 375
--- NOTE | 2019-12-29 18:42 | NUR ---
EVENING NOTE PATIENT RESTING IN BED WITH EYES OPEN. PATIENT ON 2LNC RESPIRATIONS ARE EVEN AND UNLABORED. NO S/S OF DISTRESS NOTED. FALL PRECAUTIONS IN PLACE, BED IN LOWEST POSITION, SIDE RAILS UP X2, CALL LIGHT WITH IN REACH, BED ALARM ON. WILL ENDORSE CARE TO NOC.
--- NOTE | 2019-12-29 19:30 | NUR ---
Opening Shift Note Assumed care of patient. Patient is awake and alert. No S/S of distress/SOB. Biliary drainage bag present. Instructed on POC and to call for assist PRN, will continue to monitor for changes Q1hr and PRN. Bed locked in lowest position and bed rails up x2. Call light within reach.
--- NOTE | 2019-12-29 20:00 | NUR ---
Biliary drainage bag present at start of shift. 300ml of drainage emptied from previous shift.
--- NOTE | 2019-12-29 21:00 | NUR ---
Critical high blood sugar. Hospitalist aware of elevated blood sugar readings. Medication regimen for glycemic control adjusted diring day shift. Will continue to monitor for changes Q1h and PRN.
[2019-12-29 22:00] VITALS: BP 138/74
[2019-12-29] MEDS: FAMOTIDINE 20 MG TAB PO SCH (22:53)
[2019-12-29] MEDS: MUPIROCIN 2% OINT 15gm or 22gm EACHNOSTRI SCH (22:53)
[2019-12-29] MEDS: INSULIN LANTUS (GLARGINE) 1 /0.01ml (100units/ml) SC SCH (22:54)
[2019-12-30] MEDS: HYDROmorphone HCL 2 MG/ML VL IV PRN ×4 (01:57→16:30)
[2019-12-30] MEDS: ONDANSETRON HCL 4 MG/2 ML VIAL IV PRN ×4 (01:58→16:30)
[2019-12-30] MEDS: ACCU-CHEK COMFORT CURVE STRIP VI SCH ×5 (04:18→22:55)
[2019-12-30] MEDS: InsuLIN REG 1unit/0.01ml Soln (100units/ml) SC SCH ×5 (04:19→22:54)
[2019-12-30 05:00] VITALS: BP 120/60
--- NOTE | 2019-12-30 05:18 | NUR ---
Attempted to draw blood from IV line. Unsuccessful attempts x2.
[2019-12-30] MEDS: metroNIDAZOLE 500MG/100ML 100 ML IV SCH (06:20)
[2019-12-30] MEDS: INSULIN LANTUS (GLARGINE) 1 /0.01ml (100units/ml) SC SCH ×2 (06:22→22:55)
[2019-12-30 06:31] LABS: Basophils # (auto) 0 10 ^3/uL (0-0.2); Basophils % (auto) 0.1 % (0.0-2.0); Eosinophils # (auto) 0 10 ^3/uL (0-0.8); Eosinophils % (auto) 0.3 % (0.0-7.0); Hematocrit 32.6 % (41.0-53.0); Hemoglobin 10.8 g/dL (13.5-17.5); Mean Corpuscular Hgb Conc. 33.3 g/dL (32.0-36.0); Mean Corpuscular Volume 96.3 fL (80.0-100.0); Monocytes # (auto) 1.1 10 ^3/uL (0-1.3); Monocytes % (auto) 9.9 % (0.0-12.0); Neutrophils # (auto) 8.9 10 ^3/uL (1.6-8.6); Neutrophils % (auto) 80.7 % (37.0-80.0); Platelet Count (auto) 228 10^3/uL (140-450); Red Blood Cells 3.38 10^6/uL (4.5-5.90); Red Cell Distribution Width 15.1 % (11.8-14.3); White Blood Cell 11.1 10^3/uL (4.4-10.8)
[2019-12-30 06:50] LABS: Calcium 9.8 mg/dL (8.5-10.1); Potassium 3.9 mmol/L (3.5-5.1)
--- NOTE | 2019-12-30 07:08 | NUR ---
860ml of drainage from percutaneous cholecystostomy collection bag for entire shift
[2019-12-30] MEDS: MUPIROCIN 2% OINT 15gm or 22gm EACHNOSTRI SCH ×2 (07:53→22:53)
[2019-12-30] MEDS: cefTRIAXone 1GM/50ML D5W 50 ML IV SCH (07:53)
[2019-12-30] MEDS: Glucerna Carbsteady SHAKE Stawberry 8oz PO SCH ×3 (07:53→18:17)
[2019-12-30] MEDS: FAMOTIDINE 20 MG TAB PO SCH ×2 (07:56→22:53)
--- NOTE | 2019-12-30 08:30 | NUR ---
percutaneous cholecystostomy tube drained 425
[2019-12-30 08:43] VITALS: BP 127/64
[2019-12-30] MEDS: HYDROcodone-ACET 5/325MG TAB PO PRN (09:56)
[2019-12-30] MEDS: MICAFUNGIN SODIUM 100 MG in SODIUM CHL 0.9% 100 ML IV SCH (09:56)
--- NOTE | 2019-12-30 10:03 | NUR ---
I called [facility] [phone] and left message for Ore Feeder Laura regarding transferring this patient back in network.
--- NOTE | 2019-12-30 10:20 | NUR ---
Doctor Samayoa informed of percutaneous cholecystostomy tube drainage amount. No new orders received.
[2019-12-30] MEDS ORDERED: DEXTROSE (50%) 50ML SYRG IV PRN (10:30)
[2019-12-30 13:00] VITALS: BP_SYST 118; BP_SYST 127; BP_DIAS 64; BP_DIAS 68
--- NOTE | 2019-12-30 13:00 | NUR ---
percutaneous cholecystostomy tube drained 500
[2019-12-30] MEDS: metroNIDAZOLE 500 MG TAB PO SCH ×2 (14:09→22:53)
[2019-12-30 16:28] VITALS: BP 141/79
[2019-12-30] MEDS: TAMSULOSIN HYDROCHLORIDE 0.4 MG CAP PO SCH (17:41)
--- NOTE | 2019-12-30 18:28 | NUR ---
percutaneous cholecystostomy tube drained 375
--- NOTE | 2019-12-30 20:15 | NUR ---
Opening Shift Note Pt is resting in bed with eyes closed and resp rate is even and unlabored. Pt appears to be sleeping at this time and will continue to monitor pt q1hr and prn. Bed is low, wheels are locked, and call light is with in reach.
--- NOTE | 2019-12-30 21:00 | NUR ---
Cholecystotomy tube drained 500.
[2019-12-30 21:39] VITALS: BP 116/64
--- NOTE | 2019-12-31 01:30 | NUR ---
Cholecystostomy tube drained 400.
[2019-12-31 05:00] VITALS: BP 136/61
--- NOTE | 2019-12-31 05:52 | NUR ---
Cholecystostomy tube drained 200ml at this time.
[2019-12-31 06:33] LABS: Basophils # (auto) 0 10 ^3/uL (0-0.2); Basophils % (auto) 0.2 % (0.0-2.0); Eosinophils # (auto) 0.1 10 ^3/uL (0-0.8); Eosinophils % (auto) 0.6 % (0.0-7.0); Hematocrit 33.6 % (41.0-53.0); Hemoglobin 11.3 g/dL (13.5-17.5); Lymphocytes % (auto) 11.1 % (10.0-50.0); Mean Corpuscular Hemoglobin 32.3 pg (28.0-32.0); Mean Corpuscular Hgb Conc. 33.6 g/dL (32.0-36.0); Mean Corpuscular Volume 95.9 fL (80.0-100.0); Monocytes % (auto) 11.1 % (0.0-12.0); Platelet Count (auto) 283 10^3/uL (140-450); Red Cell Distribution Width 15.3 % (11.8-14.3); White Blood Cell 9.1 10^3/uL (4.4-10.8)
[2019-12-31] MEDS: metroNIDAZOLE 500 MG TAB PO SCH ×3 (06:36→21:48)
[2019-12-31] MEDS: InsuLIN REG 1unit/0.01ml Soln (100units/ml) SC SCH ×4 (06:37→21:49)
[2019-12-31] MEDS: INSULIN LANTUS (GLARGINE) 1 /0.01ml (100units/ml) SC SCH ×2 (06:38→21:50)
[2019-12-31] MEDS: ACCU-CHEK COMFORT CURVE STRIP VI SCH ×4 (06:38→21:51)
--- NOTE | 2019-12-31 07:30 | NUR ---
Opening Shift Note Assumed care of patient, awake and alert. No S/S of distress/SOB. Pain management options discussed with the patient. Instructed on POC and to call for assist PRN, will continue to monitor for changes Q1hr and PRN.
[2019-12-31 08:00] VITALS: BP 107/69
[2019-12-31 09:00] VITALS: BP 107/69
[2019-12-31] MEDS: cefTRIAXone 1GM/50ML D5W 50 ML IV SCH (09:35)
[2019-12-31] MEDS: Glucerna Carbsteady SHAKE Stawberry 8oz PO SCH ×3 (09:35→18:46)
[2019-12-31] MEDS: HYDROmorphone HCL 2 MG/ML VL IV PRN ×3 (09:37→21:34)
--- NOTE | 2019-12-31 09:55 | NUR ---
500 ML OF NEVAREZ LIQUID DRAINED FROM CHOLEOSTOMY BAG. NO ODOR DETECTED.
[2019-12-31] MEDS: MICAFUNGIN SODIUM 100 MG in SODIUM CHL 0.9% 100 ML IV SCH (11:03)
[2019-12-31] MEDS: MUPIROCIN 2% OINT 15gm or 22gm EACHNOSTRI SCH ×2 (11:03→21:48)
[2019-12-31] MEDS: FAMOTIDINE 20 MG TAB PO SCH ×2 (11:03→21:48)
--- NOTE | 2019-12-31 11:25 | NUR ---
I received a phone message to call Home Organizer Anca at [facility] [phone]-called but Anca is on the other line and will give me a call back.
--- NOTE | 2019-12-31 12:00 | NUR ---
CALLED [facility] TO FOLLOW UP ON IDENTIFICATION OF FUNGAL SAMPLE. THE LAB TOLD ME THEY HAD TO FOLLOW UP WITH [facility] TO SEE IF THE RESULTS HAVE COME BACK YET.
[2019-12-31 13:00] VITALS: BP 107/71
--- NOTE | 2019-12-31 14:38 | NUR ---
650 ML OF NEVAREZ LIQUID DRAINED FROM CHOLEOSTOMY BAG.
[2019-12-31 17:00] VITALS: BP 136/75
--- NOTE | 2019-12-31 18:30 | NUR ---
350 ML OF NEVAREZ LIQUID DRAINED FROM CHOLEOSTOMY BAG.
[2019-12-31] MEDS: TAMSULOSIN HYDROCHLORIDE 0.4 MG CAP PO SCH (18:46)
--- NOTE | 2019-12-31 21:30 | NUR ---
CHOLECYSTOSTOMY BAG DRAINED 450ML CALEB COLORED FLUID.
[2019-12-31 21:34] VITALS: BP 142/76
[2019-12-31] MEDS ORDERED: TEMAZEPAM 15 MG CAP PO ONE (22:30)
[2020-01-01] VITALS (7 sets, daily range): BP systolic 98–146; BP diastolic 57–79
--- NOTE | 2020-01-01 02:20 | NUR ---
CHOLECYSTOSTOMY BAG DRAINED 250ML.
--- NOTE | 2020-01-01 04:26 | NUR ---
Cholecystostomy bag drained 100ml hemalatha colored fluid.
[2020-01-01] MEDS: HYDROmorphone HCL 2 MG/ML VL IV PRN ×3 (04:48→14:50)
[2020-01-01] MEDS: metroNIDAZOLE 500 MG TAB PO SCH ×3 (06:26→21:48)
[2020-01-01] MEDS: InsuLIN REG 1unit/0.01ml Soln (100units/ml) SC SCH ×4 (06:32→21:46)
[2020-01-01] MEDS: INSULIN LANTUS (GLARGINE) 1 /0.01ml (100units/ml) SC SCH ×2 (06:33→21:47)
[2020-01-01] MEDS: ACCU-CHEK COMFORT CURVE STRIP VI SCH ×4 (06:34→21:47)
[2020-01-01] MEDS: Glucerna Carbsteady SHAKE Stawberry 8oz PO SCH ×3 (08:00→17:54)
--- NOTE | 2020-01-01 09:00 | NUR ---
260ML OF BILIARY FLUID DRAINED FROM CHOLEOSTOMY BAG.
[2020-01-01] MEDS: cefTRIAXone 1GM/50ML D5W 50 ML IV SCH (09:49)
[2020-01-01] MEDS: MUPIROCIN 2% OINT 15gm or 22gm EACHNOSTRI SCH ×2 (09:50→21:48)
[2020-01-01] MEDS: FAMOTIDINE 20 MG TAB PO SCH ×2 (09:50→21:48)
--- NOTE | 2020-01-01 11:08 | NUR ---
PT Patient pleasantly refused to be OOB during visit with c/o not feeling well and fatigue. ROCIO Sanders notified on patients refusal. Addendum: 01/01/20 at 1109 by RADHA ADLER PTT Amended: Links added.
--- NOTE | 2020-01-01 13:45 | NUR ---
400ML OF BILIARY FLUID DRAINED FROM CHOLEOSTOMY BAG.
--- NOTE | 2020-01-01 16:00 | NUR ---
IV insertion IV access obtained, via clean sterile technique by inserting 22 gauge catheter at left hand after 2 attempt(s). IV secured properly. No trauma to site. Patient tolerated well.
--- NOTE | 2020-01-01 16:05 | NUR ---
Midline removal IV DC'd to right upper arm with clean sterile technique, catheter fully intact. Pressure dressing applied to site. Patient tolerated well. NOTE: site was painful and redness was begining to develop. firm streak was noted above the midline's insertion point. will continue to monitor site for resolution of symptoms.
[2020-01-01] MEDS: HYDROcodone-ACET 5/325MG TAB PO PRN (16:09)
[2020-01-01] MEDS: TAMSULOSIN HYDROCHLORIDE 0.4 MG CAP PO SCH (17:53)
[2020-01-02] VITALS (8 sets, daily range): BP systolic 98–146; BP diastolic 57–70
[2020-01-02] MEDS: HYDROmorphone HCL 2 MG/ML VL IV PRN ×4 (03:15→20:41)
[2020-01-02] MEDS: ONDANSETRON HCL 4 MG/2 ML VIAL IV PRN ×3 (04:34→16:22)
[2020-01-02 05:18] LABS: Basophils # (auto) 0 10 ^3/uL (0-0.2); Basophils % (auto) 0.2 % (0.0-2.0); Eosinophils # (auto) 0 10 ^3/uL (0-0.8); Eosinophils % (auto) 0.4 % (0.0-7.0); Hematocrit 36.5 % (41.0-53.0); Hemoglobin 12.3 g/dL (13.5-17.5); Lymphocytes # (auto) 1.3 10 ^3/uL (0.4-5.4); Lymphocytes % (auto) 12.4 % (10.0-50.0); Mean Corpuscular Hemoglobin 32.1 pg (28.0-32.0); Mean Corpuscular Hgb Conc. 33.7 g/dL (32.0-36.0); Mean Corpuscular Volume 95.2 fL (80.0-100.0); Monocytes # (auto) 0.9 10 ^3/uL (0-1.3); Monocytes % (auto) 8.1 % (0.0-12.0); Neutrophils # (auto) 8.4 10 ^3/uL (1.6-8.6); Neutrophils % (auto) 78.9 % (37.0-80.0); Nucleated Red Blood Cells % 0.1 %; Platelet Count (auto) 369 10^3/uL (140-450); Red Blood Cells 3.83 10^6/uL (4.5-5.90); Red Cell Distribution Width 15.2 % (11.8-14.3); White Blood Cell 10.6 10^3/uL (4.4-10.8)
[2020-01-02 05:37] LABS: Albumin 2.9 g/dL (3.4-5.0); Calcium 9.9 mg/dL (8.5-10.1); Potassium 4.5 mmol/L (3.5-5.1)
[2020-01-02 05:42] LABS: BUN/Creatinine Ratio 35.5; Bilirubin, Total 1.1 mg/dL (0.2-1.0); Total Protein 9.3 g/dL (6.4-8.2)
[2020-01-02] MEDS: metroNIDAZOLE 500 MG TAB PO SCH ×3 (06:01→22:15)
[2020-01-02] MEDS: InsuLIN REG 1unit/0.01ml Soln (100units/ml) SC SCH ×4 (06:02→22:37)
[2020-01-02] MEDS: INSULIN LANTUS (GLARGINE) 1 /0.01ml (100units/ml) SC SCH ×2 (06:03→22:38)
[2020-01-02] MEDS: ACCU-CHEK COMFORT CURVE STRIP VI SCH ×4 (06:04→22:29)
--- NOTE | 2020-01-02 07:00 | NUR ---
Opening Shift Note Received report on the patient. Awake lying in bed. Discussed plan of care with the patient. The patient does not show any signs of distress at this time. Chronic pain managed well ; patient reported moderate pain 7/10 as his tolerable level; will continue to monitor pain level. Hepatic drain patent , fluid deep dark hemalatha 500ml drained. Bed is in the lowest position, side rails up x2, and the call light is within reach. Will continue to monitor.
[2020-01-02] MEDS: cefTRIAXone 1GM/50ML D5W 50 ML IV SCH (09:05)
[2020-01-02] MEDS: FAMOTIDINE 20 MG TAB PO SCH ×2 (09:05→22:15)
[2020-01-02] MEDS: HYDROcodone-ACET 5/325MG TAB PO PRN ×3 (09:05→22:44)
[2020-01-02] MEDS: Glucerna Carbsteady SHAKE Stawberry 8oz PO SCH ×3 (09:06→18:00)
[2020-01-02] MEDS: MUPIROCIN 2% OINT 15gm or 22gm EACHNOSTRI SCH ×2 (09:06→22:15)
--- NOTE | 2020-01-02 09:27 | NUR ---
500ML OF BILIARY FLUID DRAINED FROM CHOLEOSTOMY BAG.
--- NOTE | 2020-01-02 12:58 | NUR ---
critical lab BS 407 mobile unit assistant paged dr walsh. patient asymptomatic will continue to monitor
[2020-01-02] MEDS ORDERED: ENOXAPARIN SOD 40 MG/0.4 ML SYRINGE SC ONE (13:00)
[2020-01-02] MEDS ORDERED: SODIUM CHLORIDE 0.9% 1,000 ML IV ONE (13:00)
[2020-01-02] MEDS: TAMSULOSIN HYDROCHLORIDE 0.4 MG CAP PO SCH (16:23)
[2020-01-02] MEDS: FLUCONAZOLE 200MG/100ML 100 ML IV SCH (16:25)
[2020-01-02] MEDS: INSULIN LISPRO (HUMAN) 100 UNITS/ML ML SC SCH ×2 (17:00→22:36)
--- NOTE | 2020-01-02 19:34 | NUR ---
Opening Shift Note Assumed care of patient. Pt is awake, alert, and orientated x 4. No S/S of distress/SOB or but claims pain /. Bed is in lowest position with side rail up x 2. Bed brakes are locked and call light is with in reach. HOB is 30 degrees. Instructed on POC and to call for assist PRN, will continue to monitor for changes Q1hr and PRN.
[2020-01-03] VITALS (8 sets, daily range): BP systolic 106–142; BP diastolic 55–80
[2020-01-03] MEDS: HYDROmorphone HCL 2 MG/ML VL IV PRN ×5 (01:55→21:20)
[2020-01-03 05:15] LABS: Basophils # (auto) 0.1 10 ^3/uL (0-0.2); Basophils % (auto) 0.6 % (0.0-2.0); Eosinophils # (auto) 0.1 10 ^3/uL (0-0.8); Eosinophils % (auto) 0.6 % (0.0-7.0); Hematocrit 38.8 % (41.0-53.0); Hemoglobin 12.6 g/dL (13.5-17.5); Mean Corpuscular Hemoglobin 31.6 pg (28.0-32.0); Mean Corpuscular Hgb Conc. 32.6 g/dL (32.0-36.0); Monocytes # (auto) 0.8 10 ^3/uL (0-1.3); Monocytes % (auto) 5.9 % (0.0-12.0); Neutrophils # (auto) 10.4 10 ^3/uL (1.6-8.6); Neutrophils % (auto) 77.9 % (37.0-80.0); Nucleated Red Blood Cells % 0.1 %; Platelet Count (auto) 390 10^3/uL (140-450); Red Cell Distribution Width 15.5 % (11.8-14.3); White Blood Cell 13.4 10^3/uL (4.4-10.8)
[2020-01-03] MEDS: metroNIDAZOLE 500 MG TAB PO SCH ×3 (05:31→21:20)
[2020-01-03] MEDS: HYDROcodone-ACET 5/325MG TAB PO PRN ×2 (05:31→12:30)
[2020-01-03 05:33] LABS: Albumin 2.8 g/dL (3.4-5.0); Calcium 9.8 mg/dL (8.5-10.1); Potassium 4.1 mmol/L (3.5-5.1)
[2020-01-03 05:36] LABS: BUN/Creatinine Ratio 35.2; Bilirubin, Total 1.6 mg/dL (0.2-1.0); Total Protein 9.5 g/dL (6.4-8.2)
--- NOTE | 2020-01-03 05:41 | NUR ---
Biliary drain 550 ml of biliary fluid drained. Fluid dark brown.
[2020-01-03] MEDS: INSULIN LISPRO (HUMAN) 100 UNITS/ML ML SC SCH ×4 (05:47→21:38)
[2020-01-03] MEDS: INSULIN LANTUS (GLARGINE) 1 /0.01ml (100units/ml) SC SCH ×2 (05:48→21:35)
[2020-01-03] MEDS: ACCU-CHEK COMFORT CURVE STRIP VI SCH ×4 (05:48→21:34)
[2020-01-03] MEDS: InsuLIN REG 1unit/0.01ml Soln (100units/ml) SC SCH ×4 (05:48→21:44)
--- NOTE | 2020-01-03 07:10 | NUR ---
closing notes endorsed care to day shift nurseJuvencio.
--- NOTE | 2020-01-03 07:15 | NUR ---
Opening shift note Assumed care of patient. A&Ox4, respirations even and non-labored with no s/s of distress. Discussed POC with patient who verbalized understanding. IV patent and intact. Bed lowered/locked with 2 side rails up, call light within reach. will continue to monitor.
[2020-01-03] MEDS: Glucerna Carbsteady SHAKE Stawberry 8oz PO SCH ×3 (08:00→18:00)
--- NOTE | 2020-01-03 08:45 | NUR ---
Pain Patient c/o 7/10 abdominal pain. Administered Dilauded/Zofran per EMAR. Will continue to monitor.
[2020-01-03] MEDS: FAMOTIDINE 20 MG TAB PO SCH ×2 (09:03→21:21)
[2020-01-03] MEDS: cefTRIAXone 1GM/50ML D5W 50 ML IV SCH (09:05)
[2020-01-03] MEDS: FLUCONAZOLE 200MG/100ML 100 ML IV SCH (09:05)
[2020-01-03] MEDS: ONDANSETRON HCL 4 MG/2 ML VIAL IV PRN ×3 (09:06→17:18)
[2020-01-03] MEDS: MUPIROCIN 2% OINT 15gm or 22gm EACHNOSTRI SCH (09:20)
--- NOTE | 2020-01-03 09:40 | NUR ---
Pain reassessed Patient stated that the pain decreased to a 5/10 and that no nausea was present. Will continue to monitor.
[2020-01-03] MEDS ORDERED: ENOXAPARIN SOD 40 MG/0.4 ML SYRINGE SC SCH (10:00)
--- NOTE | 2020-01-03 11:19 | NUR ---
1100 01/03/20 Late entry for 12/31/19-I spoke with Reservations Specialist Anca from [facility] regarding possible transfer of patient back in network-I let her know that patient has multiple complex medical problems and would not be discharged in the next few days. Per Anca-they will not be transferring patient unless it is for a higher level of care-they are not doing lateral transfers back in network at this time-I made Dr. Samayoa aware.
--- NOTE | 2020-01-03 11:37 | NUR ---
DR ROBLES BEDSIDE. PATIENT WILL BE NPO AFTER MIDNIGHT FOR LIVER BIOPSY AND BILARY EXCHANGE. REQUESTED RESULTS FROM [facility] HE WILL FAX OVER REPORT.
--- NOTE | 2020-01-03 12:20 | NUR ---
Pain Patient stated that his current pain level was a 7/10. Administered [place] per EMAR. Will continue to monitor.
--- NOTE | 2020-01-03 13:06 | NUR ---
FAX RECEIVED FROM [facility] IDENTIFIED PER REPORT. Addendum: 01/03/20 at 1827 by ANA ALEJANDRA RN REPORT PLACED IN CHART.
--- NOTE | 2020-01-03 13:07 | NUR ---
BIOPSY RESULTS REQUESTED FOR LIVER BIOPSY PERFORMED ON 12/23. MESSAGE LEFT.
--- NOTE | 2020-01-03 14:16 | NUR ---
NUTRITION FOLLOWUP NOTES Pt wt is 90.9 kg today Pt is still experiencing a little nausea, but stated his abdominal pain has substantially subsided. Pt noted no other distress or complaints. Pt appetite is good aeb 100% x5 PO intake per RN doc. Will continue to monitor and followup prn. Est. Energy Needs: 7495-8816 kcal (17-20 kcal/kg BW). Est. Protein Needs: 73-88 gms/day (1.0-1.2 gms/kg Adj.BW). Will continue to monitor pertinent labs and reassess nutrient need prn LABS: Na 131 L, BUN 37 H, Cr 1.05 WNL, gluc 126 H, A1c 10.1 H, Bilirubin 1.6 H, Alk Phos 316 H GI: Last BM noted on 01/02/20 per RN doc. BS: 20 low risk, skin intact. Please refer to wound assessment report for full details. PES: Problem 1) Altered nutrition related lab values r/t current medical condition aeb hyperglycemia, hypoalbuminemia, elevated BUN 2) Obese, Class I r/t excessive energy intake prior to admission aeb BMI 31.4 kg/m2 and 135% IBW Comments Will continue to monitor PO intake, pertinent labs, skin status and weight trends. F/u in 3 to 5 days. Additional Recommendation: 1) If PO intake remains >75% each meal, may discontinue Glucerna supplement to avoid weight gain. 2) Consider to continue monitoring pertinent labs. If Albumin continues trending down, consider Prostat 1 pkt BID. 3) Refer to RD/CDE for further nutrition education and weight monitoring upon discharge. 4) Continue current plan of care.
--- NOTE | 2020-01-03 14:16 | NUR ---
PAIN RE-ASSESS PATIENT REPORTED PAIN 5/10 AT A TOLERABLE LEVEL. RE EDUCATION PROVIDED ON PAIN MANAGEMENT. PATIENT VERBALIZED UNDERSTANDING. WILL CONTINUE TO MONITOR.
--- NOTE | 2020-01-03 15:47 | NUR ---
PATIENT UP WITH PT
[2020-01-03] MEDS: TAMSULOSIN HYDROCHLORIDE 0.4 MG CAP PO SCH (17:26)
--- NOTE | 2020-01-03 17:48 | NUR ---
PAIN REASSESS PATIENT REPORTED PAIN 6/10 TOLERABLE REFUSED PAIN MEDICATION; WILL CONTINUE TO MONITOR.
--- NOTE | 2020-01-03 19:00 | NUR ---
Received report from the Day Shift ROCIO Henning. Pt. in bed resting and watching TV.
--- NOTE | 2020-01-03 20:00 | NUR ---
Assessment done and completed. Provided pt. assistance @ the bedside. Maintained pt. safety, keep room environment free from cluttter and assisted pt. to the BR for hygiene needs such as brushing his teeth and washing/sponge and cleaned his face and body with a towel and pat dry and put on new gown. Pt. returned to the bed safely. Call-light within reach @ the bedside.
--- NOTE | 2020-01-03 21:20 | NUR ---
Meds. as scheduled given/administered to the pt. Pt. given explanation about the use and benefits of the scheduled meds. Pt. verbalized understanding. Pt. given also Dilaudid 1 mg. IV prn for severe pain @ the abdomen and Right lateral side of the abdomen about 8/10 scale, hurting and sharp pain as described by the pt.
--- NOTE | 2020-01-03 21:33 | NUR ---
Accucheck taken with result of BS = 276 @ 2133 PM.
--- NOTE | 2020-01-03 21:34 | NUR ---
Pt. refused Lantus and Humalog Insulin since he will be on NPO post MN for Billary Draining Tube Exchange Procedure tomorrow 01/04/2020. Pt. will not be eating Post [place] as and doesn't want his blood sugar to go down when on SKY CAP post MN.
--- NOTE | 2020-01-03 21:44 | NUR ---
Pt. given 6 units s/s coverage for regular Human Insulin SQ @ the [facility] @ 2144 PM with BS = 276 , see/refer to Emar.
--- NOTE | 2020-01-03 21:50 | NUR ---
Pt. denies pain @ this time. No s/s of facial grimacing. No s/s of agitation/restlessness or anxiety. Pt. calm and pleasant.
--- NOTE | 2020-01-03 22:30 | NUR ---
Pt. calm and resting in bed. No s/s of pain or discomfort @ this time.
--- NOTE | 2020-01-04 00:30 | NUR ---
Pt. on NPO post MN. Pt. aware of the NPO Post MN for procedure to be done name Billary Draining Tube Exchange as ordered by the Doctor. Pt. compliant with his care.
[2020-01-04] MEDS: HYDROcodone-ACET 5/325MG TAB PO PRN ×2 (00:32→12:42)
--- NOTE | 2020-01-04 00:32 | NUR ---
Pt. given 1 tab. of [place] 5/325 mg. for mod. pain of 6/10 scale @ the abdomen and Right Lateral side of the abdomen aching, sharp and hurting in nature as described by the pt.
--- NOTE | 2020-01-04 01:30 | NUR ---
Pt. calm and fell asleep @ this time. IVF continuous @ 75 ml./hr. connected to the left Hand G # 22. Pt on 2L/NC continuous while sleeping. No s/s of sob or dyspnea. Keep pt. safe and inspector and clerk bed. Environment tranquil and lights off to promote sleep. Kept pt. on NPO post MN and Call-light within reach @ the bedside.
--- NOTE | 2020-01-04 01:32 | NUR ---
No s/s of pain or discomfort. Pt. pain level 0/10 scale @ this time. Sleeping and comfortable now.
--- NOTE | 2020-01-04 02:00 | NUR ---
Pt. sleeping well. Keep room environment free from noise by closing the door lights off to dim the room. Still on NPO for Procedure today.
[2020-01-04] MEDS: HYDROmorphone HCL 2 MG/ML VL IV PRN ×3 (04:23→20:40)
--- NOTE | 2020-01-04 04:23 | NUR ---
Pt. just awakened, given Dilaudid 1 mg. IV for severe pain @ the Right side of the abdomen, rib cage area about 7/10 scale, sharp and shooting pain as described by the pt.
[2020-01-04 04:48] LABS: Basophils # (auto) 0 10 ^3/uL (0-0.2); Basophils % (auto) 0.3 % (0.0-2.0); Eosinophils # (auto) 0 10 ^3/uL (0-0.8); Eosinophils % (auto) 0.5 % (0.0-7.0); Hematocrit 38.7 % (41.0-53.0); Hemoglobin 12.5 g/dL (13.5-17.5); Lymphocytes # (auto) 1.6 10 ^3/uL (0.4-5.4); Lymphocytes % (auto) 16.9 % (10.0-50.0); Mean Corpuscular Hgb Conc. 32.4 g/dL (32.0-36.0); Mean Corpuscular Volume 95.9 fL (80.0-100.0); Monocytes # (auto) 0.6 10 ^3/uL (0-1.3); Monocytes % (auto) 6.1 % (0.0-12.0); Neutrophils # (auto) 7.3 10 ^3/uL (1.6-8.6); Neutrophils % (auto) 76.2 % (37.0-80.0); Nucleated Red Blood Cells % 0.1 %; Platelet Count (auto) 398 10^3/uL (140-450); Red Blood Cells 4.03 10^6/uL (4.5-5.90); Red Cell Distribution Width 15.4 % (11.8-14.3); White Blood Cell 9.6 10^3/uL (4.4-10.8)
--- NOTE | 2020-01-04 05:00 | NUR ---
Pt. given complete bedbath. Changed all bed linens including chux after bedbathe. Pt. put on a new gown and clean pt.'s room and tables. Pt. is now ready for the procedure today. Kept. pt. on NPO. Pt. compliant with care.
[2020-01-04 05:02] LABS: INR 1.3 (0.9-1.15); Partial Thromboplastin Time 29.9 sec (23.64-32.05)
[2020-01-04 05:04] LABS: Albumin 3.1 g/dL (3.4-5.0); Calcium 9.6 mg/dL (8.5-10.1)
[2020-01-04 05:07] LABS: BUN/Creatinine Ratio 29.2; Total Protein 9.6 g/dL (6.4-8.2)
[2020-01-04 05:34] VITALS: BP 145/75
[2020-01-04] MEDS: metroNIDAZOLE 500 MG TAB PO SCH ×3 (06:00→21:58)
[2020-01-04] MEDS: ACCU-CHEK COMFORT CURVE STRIP VI SCH ×4 (06:26→22:10)
[2020-01-04] MEDS: INSULIN LISPRO (HUMAN) 100 UNITS/ML ML SC SCH ×4 (06:26→22:09)
--- NOTE | 2020-01-04 06:26 | NUR ---
Pt. accucheck taken with blood sugar result of = 370 , pt. was on NPO post MN. Pt. for Billary Draining Tube Echange today. No coverage given @ this time.
[2020-01-04] MEDS: InsuLIN REG 1unit/0.01ml Soln (100units/ml) SC SCH ×4 (06:30→22:10)
[2020-01-04] MEDS: INSULIN LANTUS (GLARGINE) 1 /0.01ml (100units/ml) SC SCH ×2 (06:32→22:09)
--- NOTE | 2020-01-04 07:00 | NUR ---
Procedure to be done today with sign consent signed by the pt. @ the chart. See/refer to the Chart.
--- NOTE | 2020-01-04 07:05 | NUR ---
Gave report to the next Day Shift RN. Henning. Pt. in bed resting, clean, dry, comfortable and ready to be picked up anytime by the lab. for procedure. Pt. afebrile. To continue monitor pt.'s blood sugar.
--- NOTE | 2020-01-04 07:30 | NUR ---
Opening shift note Assumed care of patient. Patient A&Ox4, respirations even and non-labored with no s/s of distress. Discussed POC and NPO status with patient who verbalized understanding. IV flushing, patent and intact. Bed lowered/locked with 2 side rails up. Will continue to monitor.
[2020-01-04 08:00] VITALS: BP 137/71
[2020-01-04] MEDS: Glucerna Carbsteady SHAKE Stawberry 8oz PO SCH ×3 (08:00→17:22)
[2020-01-04] MEDS ORDERED: LIDOCAINE 2%HCL (LOCAL ANESTH.) INJ 20ML MDV ONE (08:14)
[2020-01-04] MEDS ORDERED: IODIXANOL 320MG/ML 100ML BTL IV ONE (08:19)
--- NOTE | 2020-01-04 08:30 | NUR ---
Patient to labor conciliator.
[2020-01-04 09:00] VITALS: BP_SYST 128; BP_SYST 137; BP_DIAS 60; BP_DIAS 71
[2020-01-04] MEDS: cefTRIAXone 1GM/50ML D5W 50 ML IV SCH (09:00)
[2020-01-04] MEDS ORDERED: fentaNYL CITRATE 100 MCG/2 ML VL ONE (09:16)
[2020-01-04] MEDS ORDERED: MIDAZOLAM HCL 1MG/1ML-2 ML VIAL ONE (09:17)
[2020-01-04] MEDS ORDERED: MEPERIDINE HCL (50 MG/ML) 1 ML VIAL IM ONE (09:30)
[2020-01-04] MEDS: SODIUM CHLORIDE 0.9% 1,000 ML IV SCH (10:00)
[2020-01-04] MEDS: FAMOTIDINE 20 MG TAB PO SCH ×2 (10:00→21:58)
[2020-01-04] MEDS: FLUCONAZOLE 200MG/100ML 100 ML IV SCH ×2 (10:00→11:00)
--- NOTE | 2020-01-04 16:04 | NUR ---
EMPTIED HEPATIC DRAIN TOTAL FOR SHIFT 750
--- NOTE | 2020-01-04 16:05 | NUR ---
CONSENTS SIGNED FOR LIVER BIOPSY.
--- NOTE | 2020-01-04 16:05 | NUR ---
ENDORSED CARE TO DAY SHIFT RN.
--- NOTE | 2020-01-04 16:13 | NUR ---
Assumed pt Care Assumed pt care from Juvencio. Pt is a/ox4 with no s/s of distress or SOB. Safety measures maintained with call light within reach, bed in lowest position and side rails up. Will continue to monitor.
[2020-01-04] MEDS: ONDANSETRON HCL 4 MG/2 ML VIAL IV PRN ×2 (16:24→20:40)
[2020-01-04 16:57] VITALS: BP 119/76
[2020-01-04] MEDS: TAMSULOSIN HYDROCHLORIDE 0.4 MG CAP PO SCH (17:08)
--- NOTE | 2020-01-04 17:14 | NUR ---
Hepatic Drain 450 mL drained from hepatic drain.
[2020-01-04 20:10] VITALS: BP 129/81
--- NOTE | 2020-01-04 20:27 | NUR ---
HEPATIC DRAIN 150mL of yellow-brown fluid emptied from collection bag of hepatic drain.
[2020-01-04 21:50] VITALS: BP 129/81
--- NOTE | 2020-01-04 22:13 | NUR ---
Patient s requesting a sleep aid. States that he takes a sleeping pill every night at home, however does not recall the name. Hospitalist paged to request order.
[2020-01-04] MEDS: TEMAZEPAM 15 MG CAP PO PRN (22:47)
--- NOTE | 2020-01-04 22:47 | NUR ---
HEPATIC DRAIN 250mL of yellow-brown fluid emptied from collection bag of hepatic drain.
--- NOTE | 2020-01-04 22:50 | NUR ---
Patient c/o burning to nares. Humidification added to O2.
[2020-01-05] MEDS: HYDROmorphone HCL 2 MG/ML VL IV PRN ×5 (00:52→22:42)
[2020-01-05] MEDS: ONDANSETRON HCL 4 MG/2 ML VIAL IV PRN ×4 (00:54→22:42)
--- NOTE | 2020-01-05 04:31 | NUR ---
HEPATIC DRAIN 275mL brown fluid emptied from collection bag of hepatic drain.
[2020-01-05] MEDS: SODIUM CHLORIDE 0.9% 1,000 ML IV SCH ×2 (04:33→12:40)
[2020-01-05 04:41] VITALS: BP 120/72
[2020-01-05 05:05] LABS: Basophils # (auto) 0.2 10 ^3/uL (0-0.2); Basophils % (auto) 1.3 % (0.0-2.0); Eosinophils # (auto) 0.1 10 ^3/uL (0-0.8); Eosinophils % (auto) 0.9 % (0.0-7.0); Hematocrit 39.6 % (41.0-53.0); Hemoglobin 13.1 g/dL (13.5-17.5); Lymphocytes # (auto) 1.9 10 ^3/uL (0.4-5.4); Lymphocytes % (auto) 12.8 % (10.0-50.0); Mean Corpuscular Hemoglobin 31.6 pg (28.0-32.0); Mean Corpuscular Hgb Conc. 33.1 g/dL (32.0-36.0); Mean Corpuscular Volume 95.3 fL (80.0-100.0); Monocytes % (auto) 6.9 % (0.0-12.0); Neutrophils # (auto) 11.8 10 ^3/uL (1.6-8.6); Neutrophils % (auto) 78.1 % (37.0-80.0); Nucleated Red Blood Cells % 0.2 %; Platelet Count (auto) 479 10^3/uL (140-450); Red Blood Cells 4.16 10^6/uL (4.5-5.90); Red Cell Distribution Width 15.4 % (11.8-14.3); White Blood Cell 15.1 10^3/uL (4.4-10.8)
[2020-01-05] MEDS: metroNIDAZOLE 500 MG TAB PO SCH ×3 (06:39→21:25)
[2020-01-05] MEDS: ACCU-CHEK COMFORT CURVE STRIP VI SCH ×4 (06:39→21:25)
[2020-01-05] MEDS: INSULIN LISPRO (HUMAN) 100 UNITS/ML ML SC SCH (06:40)
[2020-01-05] MEDS: INSULIN LANTUS (GLARGINE) 1 /0.01ml (100units/ml) SC SCH ×2 (06:40→22:44)
[2020-01-05] MEDS: InsuLIN REG 1unit/0.01ml Soln (100units/ml) SC SCH ×4 (06:42→22:43)
--- NOTE | 2020-01-05 06:47 | NUR ---
HEPATIC DRAIN 275ml of brown fluid emptied from collection bag of hepatic drain.
[2020-01-05 07:46] LABS: Albumin 2.8 g/dL (3.4-5.0); Anion Gap 8 (5-15); Blood Urea Nitrogen 41 mg/dL (7-18); Calcium 9.4 mg/dL (8.5-10.1); Carbon Dioxide 17 mmol/L (21-32); Chloride 102 mmol/L (98-107); Glucose 278 mg/dL (74-106); Sodium 127 mmol/L (136-145)
[2020-01-05 07:51] LABS: Alanine Aminotransferase 43 U/L (16-61); Alkaline Phosphatase 250 U/L (45-117); Aspartate Aminotransferase 31 U/L (15-37); BUN/Creatinine Ratio 29.7; GFR African American 66 mL/min; GFR Non-African American 54 mL/min; Total Protein 9.3 g/dL (6.4-8.2)
[2020-01-05 07:54] LABS: Potassium 5.6 mmol/L (3.5-5.1)
[2020-01-05] MEDS: Glucerna Carbsteady SHAKE Stawberry 8oz PO SCH ×3 (08:00→18:00)
[2020-01-05] MEDS ORDERED: LIDOCAINE 2%HCL (LOCAL ANESTH.) INJ 20ML MDV ONE ×2 (08:33→08:35)
[2020-01-05] MEDS ORDERED: GELATIN 1 SPONGE SIZE 50 TOP ONE (08:34)
[2020-01-05] MEDS ORDERED: MIDAZOLAM HCL 1MG/1ML-2 ML VIAL IV ONE (08:45)
[2020-01-05] MEDS ORDERED: fentaNYL CITRATE 100 MCG/2 ML VL IV ONE (08:45)
--- NOTE | 2020-01-05 09:00 | NUR ---
Potassium Patients potassium 5.6 at 0[address] with Dr Carter. He ordered Lantus 40 units and to feed him lunch.
--- NOTE | 2020-01-05 09:30 | NUR ---
Patient off unit Patient was picked up for liver biopsy. Is of unit.
[2020-01-05] MEDS ORDERED: IOHEXOL 300 MG/ML 100ML BOTTLE IJ ONE (09:47)
[2020-01-05] MEDS ORDERED: INSULIN LANTUS (GLARGINE) 1 /0.01ml (100units/ml) SC ONE (10:00)
[2020-01-05] MEDS ORDERED: SODIUM ZIRCONIUM CYCL 10 GM PAK PO ONE (10:00)
--- NOTE | 2020-01-05 10:00 | NUR ---
Patient back on unit patient back on unit. patient resting in bed watching tv. no distress noted. will continue to monitor patient.
--- NOTE | 2020-01-05 10:00 | NUR ---
Hepatic drain drained brown 425 mLs. Patient states no discomfort. will continue to monitor.
--- NOTE | 2020-01-05 10:15 | NUR ---
Radiology Spoke with Darlene CHAN from radiology. darlene stated "Dr Alvarado did not perform liver biopsy because mass was no longer visible, he believes antibiotics have shrunk the mass."
[2020-01-05] MEDS: FAMOTIDINE 20 MG TAB PO SCH ×2 (11:02→21:25)
[2020-01-05] MEDS: SODIUM BICARBONATE 50ML VIAL 50 ML in SOD CHL 0.45% 1,000 ML IV SCH (11:09)
[2020-01-05] MEDS: FLUCONAZOLE 200MG/100ML 100 ML IV SCH ×2 (11:19→12:47)
[2020-01-05] MEDS: cefTRIAXone 1GM/50ML D5W 50 ML IV SCH (11:51)
[2020-01-05 12:33] VITALS: BP 106/60
--- NOTE | 2020-01-05 15:00 | NUR ---
REPORT RECEIVED FROM SYDNEY, CONTINUE MONITORING
[2020-01-05 16:56] VITALS: BP 127/75
[2020-01-05] MEDS: TAMSULOSIN HYDROCHLORIDE 0.4 MG CAP PO SCH (18:04)
--- NOTE | 2020-01-05 18:33 | NUR ---
PT IS SITTING UP EATING DINNER, NO DISTRESS NOTED, CONTINUE MONITORING
[2020-01-05 18:46] LABS: Anion Gap 9 (5-15); BUN/Creatinine Ratio 32.6; Blood Urea Nitrogen 42 mg/dL (7-18); Calcium 9.7 mg/dL (8.5-10.1); Carbon Dioxide 16 mmol/L (21-32); Chloride 99 mmol/L (98-107); GFR African American 71 mL/min; GFR Non-African American 59 mL/min; Glucose 305 mg/dL (74-106); Potassium 5.1 mmol/L (3.5-5.1); Sodium 124 mmol/L (136-145)
--- NOTE | 2020-01-05 19:30 | NUR ---
OPENING SHIFT NOTE Assumed care of patient who is A&O x4. Currently on RA with no s/s of distress. Reports 7/10 pain to left lower abdomen that radiates to his back. Patient informed that his pain medication is not yet due at this time. Verbalizes understanding. Offered heat pack, to which patient declined. IVF infusing as ordered; PIV is intact and patent with no s/s of irritation. Hepatic drain is in place. 300ml brown fluid emptied from collection bag. Bed is in low locked position. with side rails up x2. Call light is within reach and patient encouraged to call for assistance when needed. Will continue to monitor for changes PRN.
[2020-01-05 20:00] VITALS: BP 119/55
[2020-01-05 21:34] VITALS: BP 120/72
--- NOTE | 2020-01-05 22:50 | NUR ---
Pain Patient reports 8/10 pain in RLQ that radiates to lower back. Medicated for pain as ordered.
[2020-01-06] MEDS: SODIUM BICARBONATE 50ML VIAL 50 ML in SOD CHL 0.45% 1,000 ML IV SCH ×2 (00:10→07:00)
[2020-01-06] MEDS: TEMAZEPAM 15 MG CAP PO PRN (00:11)
--- NOTE | 2020-01-06 00:11 | NUR ---
HEPATIC DRAIN 375mL brown fluid emptied from collection bag of hepatic drain. Patient tolerates well.
[2020-01-06] MEDS: SODIUM CHLORIDE 0.9% 1,000 ML IV SCH (02:00)
--- NOTE | 2020-01-06 03:20 | NUR ---
HEPATIC DRAIN 400mL of brown fluid emptied from collection bag of hepatic drain.
[2020-01-06] MEDS: HYDROmorphone HCL 2 MG/ML VL IV PRN ×2 (03:40→09:57)
[2020-01-06] MEDS: ONDANSETRON HCL 4 MG/2 ML VIAL IV PRN ×2 (03:41→09:58)
--- NOTE | 2020-01-06 05:06 | NUR ---
Patient is requesting pain medication. Informed that pain medication is not due at this time. Repositioned in bed for comfort. Will continue to monitor.
[2020-01-06 05:20] VITALS: BP 136/78
[2020-01-06 05:35] LABS: Basophils # (auto) 0 10 ^3/uL (0-0.2); Basophils % (auto) 0.5 % (0.0-2.0); Eosinophils # (auto) 0.1 10 ^3/uL (0-0.8); Eosinophils % (auto) 0.6 % (0.0-7.0); Hemoglobin 12.8 g/dL (13.5-17.5); Lymphocytes % (auto) 9.5 % (10.0-50.0); Mean Corpuscular Hemoglobin 32.3 pg (28.0-32.0); Mean Corpuscular Hgb Conc. 33.7 g/dL (32.0-36.0); Mean Corpuscular Volume 95.7 fL (80.0-100.0); Monocytes # (auto) 0.7 10 ^3/uL (0-1.3); Monocytes % (auto) 6.5 % (0.0-12.0); Neutrophils # (auto) 8.8 10 ^3/uL (1.6-8.6); Neutrophils % (auto) 82.9 % (37.0-80.0); Nucleated Red Blood Cells % 0.1 %; Platelet Count (auto) 366 10^3/uL (140-450); Red Blood Cells 3.97 10^6/uL (4.5-5.90); Red Cell Distribution Width 15.2 % (11.8-14.3); White Blood Cell 10.6 10^3/uL (4.4-10.8)
[2020-01-06 05:50] LABS: Potassium 4.6 mmol/L (3.5-5.1)
[2020-01-06 05:54] LABS: BUN/Creatinine Ratio 37.6; Calcium 9.8 mg/dL (8.5-10.1)
[2020-01-06] MEDS: metroNIDAZOLE 500 MG TAB PO SCH (05:56)
[2020-01-06] MEDS: ACCU-CHEK COMFORT CURVE STRIP VI SCH ×2 (06:28→11:54)
[2020-01-06] MEDS: INSULIN LANTUS (GLARGINE) 1 /0.01ml (100units/ml) SC SCH (06:29)
[2020-01-06] MEDS: InsuLIN REG 1unit/0.01ml Soln (100units/ml) SC SCH ×2 (06:30→11:54)
--- NOTE | 2020-01-06 06:58 | NUR ---
HEPATIC DRAIN 250mL brown fluid emptied from collection bag of hepatic drain TOTAL OUTPUT THIS SHIFT: 1325mL
[2020-01-06 08:00] VITALS: BP 146/68
--- NOTE | 2020-01-06 08:00 | NUR ---
ASSESSMENT NOTE PT IS ALERT ORIENTED X4, SITTING UP AT THE SIDE OF THE BED, NO DISTRESS NOTED, LARGE SOFT ABDOMEN DRAINAGE NOTED AT RT LOWER ABDOMEN WITH BROWN FLUIDS, PAIN 0/10 AT THIS TIME, CALL LIGHT WITHIN REACH
[2020-01-06] MEDS: cefTRIAXone 1GM/50ML D5W 50 ML IV SCH (08:29)
[2020-01-06 08:41] VITALS: BP 96/53
[2020-01-06] MEDS: Glucerna Carbsteady SHAKE Stawberry 8oz PO SCH (09:43)
[2020-01-06] MEDS: FLUCONAZOLE 200MG/100ML 100 ML IV SCH ×2 (09:43→11:23)
[2020-01-06] MEDS: FAMOTIDINE 20 MG TAB PO SCH (09:57)
--- NOTE | 2020-01-06 10:31 | NUR ---
ROOM AIR SATURATION 98% IN ROOM AIR
--- NOTE | 2020-01-06 10:31 | NUR ---
DR RUFF AT BED SIDE FOLLOWING UP ON PT WITH DISCHARGE HOME INSTRUCTIONS, PT VERBALIS UNDERSTANDING
--- NOTE | 2020-01-06 12:15 | NUR ---
EDUCATED PT HOW TO DRAIN HIS DRAINAGE BAG, AND LOG IT IN, WAS ABLE TO DEMONSTRATED BACK, CONTINUE MONITORING
[2020-01-06 12:18] VITALS: BP 146/68
[2020-01-06 13:00] VITALS: BP 116/61
--- NOTE | 2020-01-06 13:20 | NUR ---
DR RUFF MADE AWARE OF THE SECOND BS 408, NO NEW ORDERS NOTED
== END 2020-01-06 14:20 | disposition home or self-care (01) | DRG 871 ==
LOC: ER 15:30 → TELE 15:31 → TELE-CENTR 20:29 → CENTRAL 12-31 11:39
PROVIDERS: ADMIT Internal Medicine; ATTEND Internal Medicine
PROC: 0FB13ZX Excision of Right Lobe Liver, Percutaneous Approach, Diagnostic (ICD-10-PCS; principal; 2019-12-24)
PROC: BF131ZZ Fluoroscopy of Gallbladder and Bile Ducts using Low Osmolar Contrast (ICD-10-PCS; 2020-01-05)
PROC: 0F9430Z Drainage of Gallbladder with Drainage Device, Percutaneous Approach (ICD-10-PCS; 2020-01-05)
DX: B37.7 Candidal sepsis (principal); K85.90 Acute pancreatitis without necrosis or infection, unspecified; N17.0 Acute kidney failure with tubular necrosis; K83.1 Obstruction of bile duct; K83.09 Other cholangitis; C78.00 Secondary malignant neoplasm of unspecified lung; E87.1 Hypo-osmolality and hyponatremia; C78.7 Secondary malignant neoplasm of liver and intrahepatic bile duct; E87.6 Hypokalemia; K82.8 Other specified diseases of gallbladder; R59.1 Generalized enlarged lymph nodes; K72.90 Hepatic failure, unspecified without coma; I10 Essential (primary) hypertension; N40.0 Benign prostatic hyperplasia without lower urinary tract symptoms; J44.9 Chronic obstructive pulmonary disease, unspecified; E87.5 Hyperkalemia; G89.29 Other chronic pain; E66.9 Obesity, unspecified; F32.9 Major depressive disorder, single episode, unspecified; E78.5 Hyperlipidemia, unspecified; K44.9 Diaphragmatic hernia without obstruction or gangrene; Z88.8 Allergy status to other drugs, medicaments and biological substances; Z79.899 Other long term (current) drug therapy; Z68.29 Body mass index [BMI] 29.0-29.9, adult
CPT/HCPCS: 10022; 36415; 47532; 71260; 74150; 74176; 74177; 76942; 77012; 80048; 80053; 82040; 82105; 82150; 82378; 82962; 83036; 83605; 83615; 83690; 83735; 84100; 84154; 84478; 85025; 85610; 85730; 86301; 87040; 87081; 93005; 93306; 97110; 97116; 97163; 97530; 99152; 99153; C1729; G0378; J0696; J1450; J1815; J2248; J2250; J2405; J3480; J3490; Q9967

== ENCOUNTER 2020-01-08 22:41 | Inpatient (IN) | payer MEDICARE ==
[~2020-01-08] VITALS: Ht 175.3 cm; Wt 92.6 kg
[~2020-01-08 22:41] MED LIST changes: +ASPI81CH59 PO; +CRAN1260 PO; +CYAN1TAB14 PO; -DOXY-286 PO; +DULO60CA PO; +FINA5TAB4 PO; -FLUO20CA19 PO; -GABA300C10 PO; +HYDR25TA4 PO; +LISI-646 PO; +MELA10CA2 OR; -OXY10CRT PO; +OXY5T PO; -OXYB15TA12 PO; +POTATAB17 PO; -PREG50CA PO; -SACC250C PO; -SULF1TAB60 PO; -TIZA4CAP PO; -ZOLP10TA6 PO
[2020-01-08 23:21] LABS: Basophils # (auto) 0.1 10 ^3/uL (0-0.2); Hemoglobin 14.7 g/dL (13.5-17.5); Lymphocytes % (auto) 8.8 % (10.0-50.0)
[2020-01-08 23:22] LABS: Basophils % (auto) 0.5 % (0.0-2.0); Eosinophils # (auto) 0 10 ^3/uL (0-0.8); Eosinophils % (auto) 0.2 % (0.0-7.0); Lymphocytes # (auto) 1.8 10 ^3/uL (0.4-5.4); Mean Corpuscular Hemoglobin 31.7 pg (28.0-32.0); Mean Corpuscular Hgb Conc. 33.5 g/dL (32.0-36.0); Mean Corpuscular Volume 94.7 fL (80.0-100.0); Monocytes # (auto) 0.8 10 ^3/uL (0-1.3); Monocytes % (auto) 3.6 % (0.0-12.0); Neutrophils # (auto) 18.2 10 ^3/uL (1.6-8.6); Neutrophils % (auto) 86.9 % (37.0-80.0); Nucleated Red Blood Cells % 0.2 %; Platelet Count (auto) 690 10^3/uL (140-450); Red Blood Cells 4.64 10^6/uL (4.5-5.90); Red Cell Distribution Width 15.1 % (11.8-14.3); White Blood Cell 20.9 10^3/uL (4.4-10.8)
[2020-01-09] VITALS (9 sets, daily range): BP systolic 88–116; BP diastolic 46–77
[2020-01-09 01:24] LABS: Alanine Aminotransferase 42 U/L (16-61); Albumin 3.3 g/dL (3.4-5.0); Amylase 133 U/L (25-115); Anion Gap 17 (5-15); Aspartate Aminotransferase 27 U/L (15-37); BUN/Creatinine Ratio 18.9; Blood Urea Nitrogen 68 mg/dL (7-18); Calcium 11.1 mg/dL (8.5-10.1); Carbon Dioxide 11 mmol/L (21-32); Chloride 96 mmol/L (98-107); GFR African American 22 mL/min; GFR Non-African American 18 mL/min; Glucose 156 mg/dL (74-106); Lipase 842 U/L (73-393); Potassium 4.8 mmol/L (3.5-5.1); Sodium 124 mmol/L (136-145)
[2020-01-09 01:29] LABS: Alkaline Phosphatase 243 U/L (45-117); Bilirubin, Total 0.9 mg/dL (0.2-1.0); Total Protein 11.3 g/dL (6.4-8.2)
[2020-01-09] MEDS ORDERED: ALBUTEROL SULF 2.5 MG/0.5ML(0.5%) NEB SOLN NEB ONE (01:45)
[2020-01-09] MEDS ORDERED: VANCOMYCIN 1GM/250ML 250 ML IV ONE (01:45)
[2020-01-09] MEDS ORDERED: PIPERACILLIN-TAZOB 3.375GM 100 ML IV ONE (01:45)
[2020-01-09] MEDS ORDERED: IPRATROPIUM BROM 0.5 MG/2.5ML INH SOL NEB ONE (01:45)
[2020-01-09] MEDS ORDERED: ONDANSETRON HCL 4 MG/2 ML VIAL IV ONE (01:45)
[2020-01-09 02:03] LABS: INR 1.37 (0.9-1.15); Partial Thromboplastin Time 36.6 sec (23.64-32.05)
[2020-01-09 02:06] LABS: Lactic Acid w/Reflex 3.3 mmol/L (0.4-2.0)
[2020-01-09] MEDS ORDERED: MORPHINE SULFATE 4 MG/ML SYR/VIAL IV PRN (05:00)
[2020-01-09] MEDS ORDERED: DEXTROSE (50%) 50ML SYRG IV PRN (05:00)
[2020-01-09] MEDS ORDERED: IPRATROPIUM BROM 0.5 MG/2.5ML INH SOL NEB PRN (05:00)
[2020-01-09] MEDS ORDERED: ALBUTEROL SULF 2.5 MG/0.5ML(0.5%) NEB SOLN NEB PRN (05:00)
[2020-01-09] MEDS ORDERED: DOCUSATE SOD 100 MG CAP PO PRN (05:00)
[2020-01-09] MEDS: ONDANSETRON HCL 4 MG/2 ML VIAL IV PRN ×3 (05:20→18:31)
[2020-01-09] MEDS: HYDROcodone-ACET 5/325MG TAB PO PRN ×2 (06:57→13:45)
--- NOTE | 2020-01-09 07:30 | NUR ---
Telemetry admit from ER KASHIFGERMAN Bailey admitted to Telemetry unit, no sbar received from cattle dehorner. Patient oriented to Patsy Saldivar, primary RN, unit, room, bed, and unit policies regarding patient care and visiting hours. Patient now on continuous telemetry monitoring, tele box # 26 and telemetry reading on arrival to unit is sinus tach 110's. Patient placed on bedside oxygen at 2l as ordered. Pt weighed by bedscale and encouraged to call if they need something. Fall precs in place. All questions and concerns addressed, patient verbalized understanding. Will cont to monitor
[2020-01-09 07:34] LABS: Basophils # (auto) 0.1 10 ^3/uL (0-0.2); Basophils % (auto) 0.3 % (0.0-2.0); Eosinophils # (auto) 0 10 ^3/uL (0-0.8); Eosinophils % (auto) 0.1 % (0.0-7.0); Lymphocytes # (auto) 1.5 10 ^3/uL (0.4-5.4); Nucleated Red Blood Cells % 0.1 %
[2020-01-09 07:36] LABS: Hematocrit 44.9 % (41.0-53.0); Lymphocytes % (auto) 6.6 % (10.0-50.0); Mean Corpuscular Hemoglobin 31.8 pg (28.0-32.0); Mean Corpuscular Hgb Conc. 33.4 g/dL (32.0-36.0); Mean Corpuscular Volume 95.1 fL (80.0-100.0); Monocytes % (auto) 4.4 % (0.0-12.0); Neutrophils # (auto) 20.3 10 ^3/uL (1.6-8.6); Neutrophils % (auto) 88.6 % (37.0-80.0); Platelet Count (auto) 646 10^3/uL (140-450); Red Blood Cells 4.72 10^6/uL (4.5-5.90); Red Cell Distribution Width 14.9 % (11.8-14.3); White Blood Cell 22.9 10^3/uL (4.4-10.8)
[2020-01-09 07:55] LABS: Potassium 5.4 mmol/L (3.5-5.1)
[2020-01-09] MEDS: InsuLIN REG 1unit/0.01ml Soln (100units/ml) SC SCH ×5 (08:00→23:37)
[2020-01-09 08:03] LABS: Calcium 10.8 mg/dL (8.5-10.1)
[2020-01-09] MEDS: ACCU-CHEK COMFORT CURVE STRIP VI SCH ×5 (08:39→23:42)
--- NOTE | 2020-01-09 09:00 | NUR ---
Respiratory note: PT ASSESSED FOR PRN TX. HR 67, RR 16, POX 93% ON 2L NC, BS ARE CLEAR. NO SOSB OR DISTRESS NOTED. PT WAS NOTIFY TO HAVE RN PAGE RT FOR MN TX.
[2020-01-09] MEDS ORDERED: LISINOPRIL 20 MG TAB PO SCH (10:00)
[2020-01-09] MEDS ORDERED: oxyCODONE HCL 5MG TAB PO SCH (10:00)
[2020-01-09] MEDS: cefTRIAXone 1GM/50ML D5W 50 ML IV SCH (10:45)
[2020-01-09] MEDS: methylPREDNISolone SOD SUCC 125 MG/2 ML VL IV SCH (10:45)
[2020-01-09] MEDS: TAMSULOSIN HYDROCHLORIDE 0.4 MG CAP PO SCH (10:46)
[2020-01-09] MEDS: CLOPIDOGREL BISULFATE 75 MG TAB PO SCH (10:46)
[2020-01-09] MEDS: FINASTERIDE 5 MG TAB PO SCH (10:46)
--- NOTE | 2020-01-09 11:00 | NUR ---
Spoke to MD MD Arciniega aware of patient's status including abnormal labs VS pt c/o pain and nausea. Awaiting patient to provide urine sample at this time. Will medicate with zofran as ordered. Will cont care
--- NOTE | 2020-01-09 12:07 | NUR ---
Afib patient has episode of afib with RVR 130's-150's on tele monitor. MD Arciniega aware and states if BP drops below 100 SBP consult Cardiology. Reassessed BP and is 97sbp. Cardiology doctor Geovani consulted as ordered. Patient denies any dizziness, denies lightheaded. Patient denies CP. Will cont to monitor
--- NOTE | 2020-01-09 15:23 | NUR ---
Decreased BP Patient requesting pain medication at this time for c/o chronic back pain. BP Assessed at this time and found to be 77/43. Patient positioned on reverse Trendelenburg, reassessed and bp 83/46. MD Arciniega notified and new orders received for 1l NS bolus iv once now and dc norco oxycodone and morphine and to inform pt he cannot have pain meds at this time due to decrease in BP and risk of continuing to drop. Patient verbalized understanding and repositioned for comfort and heat management provided. Pt hypotension is asymptomatic at this time. Fluid bolus started as ordered. MD Arciniega states if BP reassessment after fluid bolus is completed and patient SBP <100mmHg page hospitalist electronic field service engineer and transfer pt to [facility]. Cont to monitor
[2020-01-09] MEDS ORDERED: SODIUM CHLORIDE 0.9% 1,000 ML IV ONE ×3 (15:30→16:15)
--- NOTE | 2020-01-09 16:34 | NUR ---
Re: BP BP 101/64 HR 103 at this time. IVF Bolus continuing to infuse as ordered. Patient tolerating well. Patient denies any symptoms of hypotension. Cont to monitor
[2020-01-09] MEDS: ATORVASTATIN 20 MG TAB PO SCH (18:00)
--- NOTE | 2020-01-09 18:30 | NUR ---
BP BP reassessed at this time 104/64 hr 90bpm. Patient denies any dizziness, lightheaded, denies cp. Patient states pain to back of chronic disease but refusing tylenol as ordered at this time. Per Doctor Arciniega order, dc morphine dc norco dc oxycodone. Patient repositioned for comfort and warm pack provided. No distress or sob noted. Will cont to monitor
--- NOTE | 2020-01-09 18:32 | NUR ---
N/V Patient states he threw up. Upon entering the room and assessing, small amount light hemalatha emesis found on floor with food particles. Patient medicated with zofran as ordered. Will cont to monitor
--- NOTE | 2020-01-09 19:00 | NUR ---
Patient care endorsed endorsed care to Naomi andersen. Patient sitting up in bed and repositioned for comfort. No s/s of distress or sob noted. NS infusing at 150ml as ordered and pt tolerating well. Call light within reach.
--- NOTE | 2020-01-09 19:45 | NUR ---
Opening Shift Note Report received from day shift RN. Assumed care of patient, awake sitting in bed and A&O x4. No S/S of distress/SOB noted. Bed locked and left in the lowest position with side rails up x2. Biliary drain in place, patent, and draining freely. Instructed on POC and to call for assist PRN, will continue to monitor for changes Q1hr and PRN.
--- NOTE | 2020-01-09 20:00 | NUR ---
MRSA SWAB COLLECTED AND SENT TO LAB.
--- NOTE | 2020-01-09 20:00 | NUR ---
PT DOES NOT APPEAR TO BE IN ANY DISTRESS. PRN HHN TX NOT INDICATED AT THIS TIME. HR 90 SPO2 97% ON 2L RR 20 BS CLEAR PT EDUCATED ON USE OF NURSE CALL BUTTON. WILL CONTINUE TO MONITOR.
--- NOTE | 2020-01-09 20:20 | NUR ---
ACCUCHECK 2000 INSULIN HELD D/T PATIENT VOMITING AND STATING HE HAS BEEN UNABLE TO EAT TODAY D/T SEVERE NAUSEA. WILL CONTINUE TO MONITOR AND REASSESS GLUCOSE LEVELS AT 0000
--- NOTE | 2020-01-09 21:30 | NUR ---
PATIENT COMPLAINED OF BACK PAIN 5/ 10 ON A NUMERICAL SCALE. PATIENT WAS OFFERED A PILLOW AND CHANGED POSITIONS, PATIENT STATED PAIN LEVEL WAS NOW TOLERABLE.
--- NOTE | 2020-01-09 21:47 | NUR ---
BP REASSESSMENT LOW BP REPORTED, BP REASSESSED: 116/57. NO COMPLAINTS OF DIZZINESS, PAIN, OR MCGUIRE. WILL CONTINUE TO MONITOR.
--- NOTE | 2020-01-10 00:25 | NUR ---
PATIENT NOTED TO HAVING NO URINE OUTPUT DURING SHIFT AND WAS GIVEN 1 LITER OF FLUIDS THROUGHOUT THE SHIFT. BLADDER SCAN DONE AND SHOWED 400 MLS OF URINE RESIDUAL AND BLADDER MILDLY DISTENDED. PATIENT DID NOT COMPLAIN OF DISCOMFORT AND STATE HE HAD NO URGE TO URINATE HOSPITALIST CALLED AND WAS GIVEN ORDER TO INSERT ALEX AND UA. ORDERS READ BACK AND VERIFIED.
--- NOTE | 2020-01-10 00:40 | NUR ---
Aguilar catheter insertion Patient assessed and determined to be in need of aguilar catheter. Order obtained from MD. Patient educated on catheter and reason for insertion. All questions answered. Aguilar catheter 14 Austrian inserted with clean sterile technique. Patient tolerated well. Output:500 MLS of dark hemalatha urine.
[2020-01-10] MEDS: ONDANSETRON HCL 4 MG/2 ML VIAL IV PRN ×3 (00:56→21:42)
--- NOTE | 2020-01-10 01:04 | NUR ---
URINE SAMPLE COLLECTED AND SENT TO LAB
[2020-01-10 01:29] LABS: Urine Bacteria FEW /hpf (None Seen); Urine Blood 1+ /uL (Negative); Urine Specific Gravity 1.022 (1.001-1.035); Urine WBC 6 /hpf (0 - 3)
[2020-01-10 01:43] LABS: Protein, Urine 89.2 mg/dL (0.0-11.9)
[2020-01-10] MEDS: InsuLIN REG 1unit/0.01ml Soln (100units/ml) SC SCH ×5 (04:01→20:16)
[2020-01-10] MEDS: ACCU-CHEK COMFORT CURVE STRIP VI SCH ×5 (04:05→20:16)
--- NOTE | 2020-01-10 04:34 | NUR ---
DRAIN 440 MLS REMOVED FROM BILIARY DRAIN
[2020-01-10 04:43] VITALS: BP 102/60
[2020-01-10 05:45] LABS: Calcium 9.5 mg/dL (8.5-10.1)
[2020-01-10] MEDS ORDERED: PANTOPRAZOLE 40 MG/10 ML VIAL INJ IV ONE (05:45)
[2020-01-10 05:54] LABS: BUN/Creatinine Ratio 18.8
[2020-01-10 05:57] LABS: Phosphorus 9.2 mg/dL (2.5-4.90); Potassium 5.6 mmol/L (3.5-5.1)
--- NOTE | 2020-01-10 06:16 | NUR ---
CRITICAL LABS HOSPITALIST PAGED FOR CRITICAL LABS VALUES POTASSIUM 5.6 BUN 98 PHOSPHORUS 9.2 CURRENTLY AWAITING CALL BACK.
[2020-01-10] MEDS ORDERED: SODIUM ZIRCONIUM CYCL 10 GM PAK PO STA (06:19)
[2020-01-10] MEDS ORDERED: CALCIUM GLUC 4.65meq/50ml D5AE 50 ML IV STA (06:19)
[2020-01-10] MEDS ORDERED: DEXTROSE (50%) 50ML SYRG IV STA (06:19)
[2020-01-10] MEDS ORDERED: InsuLIN REG 1unit/0.01ml Soln (100units/ml) IV STA (06:19)
--- NOTE | 2020-01-10 06:30 | NUR ---
HOSPITALIST PAGED BACK. NEW ORDERS GIVEN, READ BACK , AND VERIFIED.
--- NOTE | 2020-01-10 07:01 | NUR ---
OPENING SHIFT NOTE Assumed care of patient from [facility] shift RN. Patient is alert and oriented x4, no signs of distress noted, patient denies pain. Patient was updated on the plan of care and verbalized understanding. He is currently receiving oxygen at 2L/min via Nasal Cannula, saturation 96%. Lozano noted, draining light hemalatha urine to gravity, bag hung below bladder level, no loops or kinks noted. Patient has biliary drain noted to the right upper quadrant, 200ml of drainage noted. Bed is locked, in the lowest position, side rails up x2 and call light is in reach. Patient was encouraged to call for assistance as needed.
--- NOTE | 2020-01-10 07:32 | NUR ---
CALLED PHARMACY FOR SODIUM BICARB stated they would send up in 15 minutes.
--- NOTE | 2020-01-10 08:03 | NUR ---
BLOOD SUGAR 419, rechecked 325. Will administer insulin as ordered.
[2020-01-10] MEDS: SEVELAMER 800 MG TAB PO SCH ×3 (08:34→17:56)
--- NOTE | 2020-01-10 08:42 | NUR ---
CALLED PHARMACY FOR SODIUM BICARB leaked in the bullet, awaiting new bag.
--- NOTE | 2020-01-10 08:52 | NUR ---
STEVEN AT BEDSIDE updated on the patient status, plan of care reviewed with patient, verbalized understanding, no new orders received.
[2020-01-10 09:04] VITALS: BP 99/61
[2020-01-10] MEDS: SODIUM BICARBONATE 50ML VIAL 150 ML in D5W 5% 1,000 ML IV SCH ×3 (09:10→22:57)
--- NOTE | 2020-01-10 09:23 | NUR ---
PATIENT IN CHAIR patient ambulated to chair at bedside with standby assist. Patient tolerated well. Patient informed to call for assistance to get back into bed.
--- NOTE | 2020-01-10 09:37 | NUR ---
HOSPITALIST AT BEDSIDE Dr Arciniega at bedside. updated on patient status, plan of care reviewed with patient and he verbalized understanding. No new orders received.
[2020-01-10] MEDS: cefTRIAXone 1GM/50ML D5W 50 ML IV SCH (10:34)
[2020-01-10] MEDS: FINASTERIDE 5 MG TAB PO SCH (10:34)
[2020-01-10] MEDS: TAMSULOSIN HYDROCHLORIDE 0.4 MG CAP PO SCH (10:34)
[2020-01-10] MEDS: PANTOPRAZOLE 40 MG/10 ML VIAL INJ IV SCH (10:35)
[2020-01-10] MEDS: methylPREDNISolone SOD SUCC 125 MG/2 ML VL IV SCH (10:35)
[2020-01-10] MEDS: CLOPIDOGREL BISULFATE 75 MG TAB PO SCH (10:35)
[2020-01-10] MEDS: ACETAMINOPHEN 325 MG TAB PO PRN ×2 (12:11→20:16)
--- NOTE | 2020-01-10 12:12 | NUR ---
Respiratory note: PT ASSESSMENT FOR PRN MEDNEB. PT IS AWAKE ALERT AND RESPONSIVE. PT FOUND ON 2 LPM NC SPO2 94%. INFORMED PT TO HAVE RT PAGED IF BECOMES SOB.
[2020-01-10 12:21] VITALS: BP 96/50
[2020-01-10] MEDS ORDERED: SOTALOL HCL 80 MG TAB PO ONE (12:45)
--- NOTE | 2020-01-10 12:53 | NUR ---
FAMILY CALLED Patient's Yane called, after verification of password, was updated on the plan of care and verbalized understanding. All questions answered.
[2020-01-10 16:46] VITALS: BP 107/66
[2020-01-10] MEDS: ATORVASTATIN 20 MG TAB PO SCH (17:56)
[2020-01-10 18:00] VITALS: BP 107/62
--- NOTE | 2020-01-10 18:06 | NUR ---
Respiratory note: ASSESSED PT FOR PRN MED NEB TX. PT IS CURRENTLY ON 2 L/M NC: HR 79, RR 16, SPO2 98%. PT SHOWS NO S/S OF SOB OR RESPIRATORY DISTRESS. MED NEB TX NOT INDICATED AT THIS TIME. PT AWARE TO HAVE RT PAGED IF SOB OCCURS. WILL CONTINUE TO MONITOR.
--- NOTE | 2020-01-10 19:00 | NUR ---
CLOSING SHIFT NOTES Care endorsed to loan review analyst RN
[2020-01-10 20:00] VITALS: BP 107/62
--- NOTE | 2020-01-10 20:00 | NUR ---
Opening Shift Note Assumed care of patient, awake and alert. No S/S of distress/SOB. Patient complained of nausea but no nausea medication due at this time. Patient ask for pain medication, will administer pain medication PRN. Patient's aguilar draining to gravity, hanging below bed, no signs of kinks. Patient has a bilirubin drain to his right upper quadrant dry and intact. Instructed on POC and to call for assist PRN, will continue to monitor for changes Q1hr and PRN.
--- NOTE | 2020-01-10 20:16 | NUR ---
Pain Medication Patient complained of pain medication 12/13, administer PRN Acetaminophen 650mg.
--- NOTE | 2020-01-10 21:16 | NUR ---
RE Pain Pain is currently sleeping at the moment, no sign of distress or pain, will continue to monitor.
[2020-01-10] MEDS: SOTALOL HCL 80 MG TAB PO SCH (21:42)
[2020-01-10] MEDS: MAGNESIUM OXIDE 400 MG TAB PO SCH (21:42)
--- NOTE | 2020-01-10 22:01 | NUR ---
Sleeping Pill Patient is asking for sleeping pill. Will page hospitalist.
--- NOTE | 2020-01-10 22:30 | NUR ---
Hospitalist Molina ordered Restoril 15mg HS PRN. Repeated orders to verified.
[2020-01-11] VITALS (8 sets, daily range): BP systolic 76–104; BP diastolic 38–60
[2020-01-11] MEDS: InsuLIN REG 1unit/0.01ml Soln (100units/ml) SC SCH ×6 (00:40→20:17)
[2020-01-11] MEDS: ACCU-CHEK COMFORT CURVE STRIP VI SCH ×6 (00:40→20:17)
[2020-01-11 05:20] LABS: Basophils # (auto) 0 10 ^3/uL (0-0.2); Basophils % (auto) 0.1 % (0.0-2.0); Eosinophils # (auto) 0 10 ^3/uL (0-0.8); Hematocrit 36.9 % (41.0-53.0); Hemoglobin 12.4 g/dL (13.5-17.5); Lymphocytes # (auto) 0.7 10 ^3/uL (0.4-5.4); Lymphocytes % (auto) 6.6 % (10.0-50.0); Mean Corpuscular Hemoglobin 31.7 pg (28.0-32.0); Mean Corpuscular Hgb Conc. 33.5 g/dL (32.0-36.0); Mean Corpuscular Volume 94.5 fL (80.0-100.0); Monocytes # (auto) 0.2 10 ^3/uL (0-1.3); Monocytes % (auto) 2.3 % (0.0-12.0); Neutrophils # (auto) 9.4 10 ^3/uL (1.6-8.6); Platelet Count (auto) 328 10^3/uL (140-450); Red Blood Cells 3.91 10^6/uL (4.5-5.90); Red Cell Distribution Width 14.8 % (11.8-14.3); White Blood Cell 10.4 10^3/uL (4.4-10.8)
[2020-01-11 05:41] LABS: Albumin 2.7 g/dL (3.4-5.0); Calcium 8.7 mg/dL (8.5-10.1); Magnesium 2.8 mg/dL (1.6-2.6); Potassium 4.7 mmol/L (3.5-5.1)
[2020-01-11 05:44] LABS: BUN/Creatinine Ratio 21.9; Bilirubin, Total 0.7 mg/dL (0.2-1.0); Total Protein 8.3 g/dL (6.4-8.2)
--- NOTE | 2020-01-11 06:00 | NUR ---
Respiratory note: PT ASSESSED FOR PRN TX. HR 70, RR 17, POX 98% ON 2L NC, BS ARE CLEAR. NO SOB OR DISTRESS NOTED AT THIS TIME. PT WAS NOTIFY TO HAVE RN PAGE RT FOR NEEDED TX.
--- NOTE | 2020-01-11 06:09 | NUR ---
Critical Lab BUN 113H. Hospitalist aware, no new orders given, will continue to monitor.
[2020-01-11] MEDS: ONDANSETRON HCL 4 MG/2 ML VIAL IV PRN (06:39)
[2020-01-11] MEDS ORDERED: methylPREDNISolone SOD SUCC 40 MG/ML VL IV SCH (07:15)
[2020-01-11] MEDS ORDERED: FUROSEMIDE 20 MG/2 ML VIAL IV ONE (07:15)
[2020-01-11] MEDS: SEVELAMER 800 MG TAB PO SCH ×3 (08:38→16:46)
--- NOTE | 2020-01-11 08:45 | NUR ---
LOW BP 78/38 P75 R18 O289% T97.9 A&OX4 . DR Diann MUHAMMAD AT BEDSIDE TO ASSESS.
--- NOTE | 2020-01-11 08:50 | NUR ---
DR HARRIS AT BEDSIDE
--- NOTE | 2020-01-11 08:50 | NUR ---
NEW ORDER PER DR Maria M MUHAMMAD IV BOLUS NS; HOLD LASIX; STAT EKG; REASSESS ONE HOUR. WILL CONTINUE TO MONITOR PATIENT.
--- NOTE | 2020-01-11 08:50 | NUR ---
DR MUHAMMAD UPDATED DR NÚÑEZ ON PATIENT CONDITION. PER HREDDY NIYA STATED TO GIVE BETAPACE ORDERED.
--- NOTE | 2020-01-11 09:15 | NUR ---
PAIN PUMP: PER DR. MUHAMMAD CALL PATIENTS PAIN PUMP COMPANY TO VERIFY WHAT DOSE HE IS RECEIVING, PER PATIENT [employer] IS THE NAME OF COMPANY. CALLED TO VERIFY DOSE PER [employer] WE NEED TO CALL THE MD THAT MANAGES THE PUMP FOR THAT INFORMATION. PER THEIR RECORDS DR. BRIGITTE GARNER IS MD ON FILE, WILL VERIFY WITH PATIENT AND CALL FOR INFORMATION.
--- NOTE | 2020-01-11 09:45 | NUR ---
REASSESSMENT OF VITALS PATIENT STABLE A&O X4 BP 101/59 P75 R18 O293% T98.2. H SABINA SIGNED OFF ON THE CASE AND ENDORSED CARE TO MARGARET.
[2020-01-11] MEDS: SOTALOL HCL 80 MG TAB PO SCH ×2 (10:00→22:50)
[2020-01-11] MEDS ORDERED: MICAFUNGIN SODIUM 100 MG in SODIUM CHL 0.9% 100 ML IV ONE (11:00)
--- NOTE | 2020-01-11 11:24 | NUR ---
assessment Patient is a 69 year old male who is alert and oriented. Per patients Veronica prior to admission patient lived home with her and was independent. Per Veronica patient has a fww for home us. Per Veronica patients PCP is Dr Berkowitz in [place]. Per Veronica she will transport patient home on discharge. Veronica informed me after patient was discharged home from the hospital he was weak and then started vomiting. Per Veronica she then called 911 and had patient transported back to ER. I informed Veronica patients post discharge needs to be determined prior to discharge. Veronica verbalized understanding and agreed to discharge plan home. Addendum: 01/11/20 at 1126 by Anita REYNOSO Amended: Links added.
[2020-01-11] MEDS: PANTOPRAZOLE 40 MG/10 ML VIAL INJ IV SCH (12:26)
[2020-01-11] MEDS: CLOPIDOGREL BISULFATE 75 MG TAB PO SCH (12:27)
[2020-01-11] MEDS: MAGNESIUM OXIDE 400 MG TAB PO SCH ×2 (12:27→22:51)
[2020-01-11] MEDS: TAMSULOSIN HYDROCHLORIDE 0.4 MG CAP PO SCH (12:27)
[2020-01-11] MEDS: FINASTERIDE 5 MG TAB PO SCH (12:27)
[2020-01-11] MEDS: PIPERACILLIN-TAZOB 2.25GM 50 ML IV SCH ×2 (13:08→16:46)
--- NOTE | 2020-01-11 14:00 | NUR ---
HOLD P.T. BECAUSE OF LOW BLOOD PRESSURE.
--- NOTE | 2020-01-11 14:51 | NUR ---
UPDATE ON LABS MG 2.8 IMPROVED FROM 3.2 WILL CONTINUE TO MONITOR.
--- NOTE | 2020-01-11 15:27 | NUR ---
HELD BETAPACE D/T LOW BP 78/38 P72. MAJOR SE FOR THIS MEDICATION IS HYPOTENSION.
--- NOTE | 2020-01-11 16:15 | NUR ---
ELEVATED GLUCOSE 441 HOSPITALIST PAGED. PATIENT ASYMPTOMATIC AND STATED "I JUST ATE MY PEACHES I DIDNT FINISH AT LUNCH". WILL CONTINUE TO MONITOR.
[2020-01-11] MEDS: ATORVASTATIN 20 MG TAB PO SCH (16:46)
--- NOTE | 2020-01-11 18:10 | NUR ---
RT NOTE: PT ON 2 LPM NC SPO2 96% HR 74, RR 20, PT DENIES SOB. BS CLEAR AND DECREASED WITH NO DISTRESS NOTED.
--- NOTE | 2020-01-11 19:15 | NUR ---
PATIENT UP TO THE RESTROOM WITH STANDBY ASSIST HAND CUTTER AWARE RN UPDATED.
--- NOTE | 2020-01-11 19:28 | NUR ---
I & O SHIFT ALEX OUTPUT 1300 DRAINAGE 275 IV NS BOLUS 1000 BICARB 600ML
--- NOTE | 2020-01-11 19:31 | NUR ---
ENDORSED CARE TO NIGHT ROCIO BONILLA.
--- NOTE | 2020-01-11 19:55 | NUR ---
Opening Shift Note Assumed care of patient, awake and alert. No S/S of distress/SOB or pain. Lozano draining hanging below bed, draining to gravity. Instructed on POC and to call for assist PRN, will continue to monitor for changes Q1hr and PRN.
--- NOTE | 2020-01-11 22:30 | NUR ---
Critical Blood Sugar Blood sugar of 484. Patient stated he just had sweet tea and left over dessert from dinner. Will page hospitalist.
--- NOTE | 2020-01-11 22:40 | NUR ---
Hospitalist aware of critical labs, no new orders given, will continue to monitor.
--- NOTE | 2020-01-11 22:45 | NUR ---
HELD BETAPACE D/T LOW BP 92/57 P 72. MAJOR SE FOR THIS MEDICATION IS HYPOTENSION.
[2020-01-11] MEDS: INSULIN LANTUS (GLARGINE) 1 /0.01ml (100units/ml) SC SCH (22:50)
[2020-01-12] VITALS (8 sets, daily range): BP systolic 82–110; BP diastolic 39–63
--- NOTE | 2020-01-12 00:28 | NUR ---
Critical Blood Sugar Blood sugar of 439. Page hospitalist, waiting to call back.
[2020-01-12] MEDS: PIPERACILLIN-TAZOB 2.25GM 50 ML IV SCH ×5 (00:33→23:40)
[2020-01-12] MEDS: ACCU-CHEK COMFORT CURVE STRIP VI SCH ×7 (00:34→23:40)
[2020-01-12] MEDS: InsuLIN REG 1unit/0.01ml Soln (100units/ml) SC SCH ×7 (00:34→23:41)
[2020-01-12] MEDS: TEMAZEPAM 15 MG CAP PO PRN ×2 (00:34→23:40)
--- NOTE | 2020-01-12 00:40 | NUR ---
Hospitalist aware, no new orders given, will continue to monitor.
[2020-01-12] MEDS: SODIUM BICARBONATE 50ML VIAL 150 ML in D5W 5% 1,000 ML IV SCH ×2 (01:10→05:15)
[2020-01-12 05:32] LABS: Basophils # (auto) 0 10 ^3/uL (0-0.2); Eosinophils # (auto) 0 10 ^3/uL (0-0.8); Hematocrit 29.4 % (41.0-53.0); Hemoglobin 9.9 g/dL (13.5-17.5); Lymphocytes # (auto) 0.4 10 ^3/uL (0.4-5.4); Lymphocytes % (auto) 8.7 % (10.0-50.0); Mean Corpuscular Hemoglobin 31.7 pg (28.0-32.0); Mean Corpuscular Hgb Conc. 33.7 g/dL (32.0-36.0); Mean Corpuscular Volume 94.3 fL (80.0-100.0); Monocytes # (auto) 0.3 10 ^3/uL (0-1.3); Monocytes % (auto) 7.6 % (0.0-12.0); Neutrophils # (auto) 3.4 10 ^3/uL (1.6-8.6); Neutrophils % (auto) 83.7 % (37.0-80.0); Platelet Count (auto) 203 10^3/uL (140-450); Red Blood Cells 3.11 10^6/uL (4.5-5.90); Red Cell Distribution Width 14.3 % (11.8-14.3); White Blood Cell 4.1 10^3/uL (4.4-10.8)
--- NOTE | 2020-01-12 06:30 | NUR ---
Low Blood Pressure Patient blood pressure of BP 83/42, pulse 55. Patient is asymptomatic. Will page hospitalist.
[2020-01-12] MEDS: INSULIN LANTUS (GLARGINE) 1 /0.01ml (100units/ml) SC SCH ×2 (06:34→21:44)
--- NOTE | 2020-01-12 06:53 | NUR ---
I & O SHIFT ALEX OUTPUT 1250 ml DRAINAGE 190ml IV (Antibiotics) 120ml BICARB 750ml
--- NOTE | 2020-01-12 07:26 | NUR ---
CLOSING SHIFT NOTES Care endorsed to steward/stewardess night RN. Nurse aware of patient's low blood pressure.
--- NOTE | 2020-01-12 07:34 | NUR ---
LOW BP BP 76/37MMHG, SPOKE WITH EDITOR MAGAZINE JOHN, RECEIVED ORDER FOR ALBUMIN 5% 250ML X 1 DOSE.
[2020-01-12] MEDS ORDERED: ALBUMIN 5% 250 ML IV ONE (07:45)
[2020-01-12] MEDS: SEVELAMER 800 MG TAB PO SCH ×3 (07:58→18:13)
--- NOTE | 2020-01-12 08:27 | NUR ---
PT ASSESSED FOR PRN HHN TX. PT IS ON ROOM AIR, SPO2 94%, HR 60, RR 18. NO S/S OF RESPIRATORY DISTRESS. HHN TX NOT INDICATED AT THIS TIME. WILL CONTINUE TO MONITOR.
[2020-01-12] MEDS: SOTALOL HCL 80 MG TAB PO SCH (10:00)
[2020-01-12] MEDS: MAGNESIUM OXIDE 400 MG TAB PO SCH (10:11)
[2020-01-12] MEDS: CLOPIDOGREL BISULFATE 75 MG TAB PO SCH (10:12)
[2020-01-12] MEDS: TAMSULOSIN HYDROCHLORIDE 0.4 MG CAP PO SCH (10:12)
[2020-01-12] MEDS: FINASTERIDE 5 MG TAB PO SCH (10:12)
[2020-01-12] MEDS: PANTOPRAZOLE 40 MG/10 ML VIAL INJ IV SCH (10:12)
[2020-01-12 10:16] LABS: Calcium 8.6 mg/dL (8.5-10.1); Potassium 3.9 mmol/L (3.5-5.1)
[2020-01-12 10:20] LABS: Bilirubin, Total 0.6 mg/dL (0.2-1.0); Total Protein 8.5 g/dL (6.4-8.2)
--- NOTE | 2020-01-12 10:30 | NUR ---
SPOKE WITH DR. ARCOS, INFORMED OF PT'S BP LOW AND CRITICAL BUN 115, HE ORDERED TO DC SODIUM BICARBONATE IV AND GIVE NS 500 ML BOLUS.
[2020-01-12] MEDS: MICAFUNGIN SODIUM 100 MG in SODIUM CHL 0.9% 100 ML IV SCH (10:37)
[2020-01-12] MEDS ORDERED: SODIUM CHLORIDE 0.9% 500 ML IV ONE ×2 (11:30→13:15)
[2020-01-12] MEDS: SODIUM CHLORIDE 0.9% 1,000 ML IV SCH ×2 (12:16→21:30)
--- NOTE | 2020-01-12 13:10 | NUR ---
BP 85/41 MM[facility] AFTER NS 500ML BOLUS, DR. ARCOS MADE AWARE OF THE BP, RECEIVED ORDER TO GIVE ANOTHER NS 500ML BOLUS. WILL CONTINUE TO MONITOR.
--- NOTE | 2020-01-12 19:40 | NUR ---
Opening Shift Note Assumed care of patient, awake and alert x4. No S/S of distress/SOB or pain. Lozano is in place, hung below bladder and draining yellow urine. Bilirubin drain pouch dressing is C/D/I to the RUQ and is draining mustard yellow fluid, the current amount in the bag is 100mL. Call light is within reach, fall precautions are in place. Instructed on POC and to call for assist PRN. All questions and concerns answered, will continue to monitor for changes Q1hr and PRN.
[2020-01-13] MEDS: InsuLIN REG 1unit/0.01ml Soln (100units/ml) SC SCH ×6 (04:00→23:53)
[2020-01-13] MEDS: ACCU-CHEK COMFORT CURVE STRIP VI SCH ×6 (04:07→23:52)
[2020-01-13 05:04] VITALS: BP 94/58
[2020-01-13 05:35] LABS: Basophils # (auto) 0 10 ^3/uL (0-0.2); Basophils % (auto) 0.1 % (0.0-2.0); Eosinophils # (auto) 0 10 ^3/uL (0-0.8); Eosinophils % (auto) 0.7 % (0.0-7.0); Hemoglobin 10.8 g/dL (13.5-17.5); Lymphocytes # (auto) 1.2 10 ^3/uL (0.4-5.4); Lymphocytes % (auto) 23.8 % (10.0-50.0); Mean Corpuscular Hemoglobin 31.7 pg (28.0-32.0); Mean Corpuscular Hgb Conc. 33.8 g/dL (32.0-36.0); Mean Corpuscular Volume 93.7 fL (80.0-100.0); Monocytes # (auto) 0.5 10 ^3/uL (0-1.3); Monocytes % (auto) 9.5 % (0.0-12.0); Neutrophils # (auto) 3.3 10 ^3/uL (1.6-8.6); Neutrophils % (auto) 65.9 % (37.0-80.0); Nucleated Red Blood Cells % 0.1 %; Platelet Count (auto) 209 10^3/uL (140-450); Red Blood Cells 3.41 10^6/uL (4.5-5.90); Red Cell Distribution Width 14.4 % (11.8-14.3)
[2020-01-13 06:01] LABS: Potassium 3.5 mmol/L (3.5-5.1)
[2020-01-13 06:08] LABS: BUN/Creatinine Ratio 32.6; Calcium 8.2 mg/dL (8.5-10.1); Uric Acid 10.6 mg/dL (3.5-7.2)
[2020-01-13] MEDS: PIPERACILLIN-TAZOB 2.25GM 50 ML IV SCH ×4 (06:31→23:52)
[2020-01-13] MEDS: INSULIN LANTUS (GLARGINE) 1 /0.01ml (100units/ml) SC SCH ×2 (06:31→21:36)
--- NOTE | 2020-01-13 06:39 | NUR ---
CRITICAL LAB VALUE BUN-93 BUN lab level is 93, it is trending down. Hospitalist is aware, no new orders, will continue to monitor.
--- NOTE | 2020-01-13 06:49 | NUR ---
0700 Lantus held, patient's blood sugar was 98.
[2020-01-13] MEDS: SODIUM CHLORIDE 0.9% 1,000 ML IV SCH ×2 (07:30→17:30)
[2020-01-13] MEDS: SEVELAMER 800 MG TAB PO SCH ×3 (08:12→18:35)
[2020-01-13 09:00] VITALS: BP 99/36
--- NOTE | 2020-01-13 10:17 | NUR ---
PT Patient pleasantly declined to ambulate or do PT during morning visit and stated he just came back from the restroom but requested to comeback at 1pm today. Addendum: 01/13/20 at 1018 by RADHA ADLER PTT Amended: Links added.
[2020-01-13] MEDS: MAGNESIUM OXIDE 400 MG TAB PO SCH (10:18)
[2020-01-13] MEDS: TAMSULOSIN HYDROCHLORIDE 0.4 MG CAP PO SCH (10:18)
[2020-01-13] MEDS: FINASTERIDE 5 MG TAB PO SCH (10:19)
[2020-01-13] MEDS: PANTOPRAZOLE 40 MG/10 ML VIAL INJ IV SCH (10:19)
[2020-01-13] MEDS: CLOPIDOGREL BISULFATE 75 MG TAB PO SCH (10:19)
--- NOTE | 2020-01-13 11:34 | NUR ---
I faxed higher level of care order to [facility] and [employer].
[2020-01-13] MEDS: MICAFUNGIN SODIUM 100 MG in SODIUM CHL 0.9% 100 ML IV SCH (12:41)
[2020-01-13 13:00] VITALS: BP 108/59
--- NOTE | 2020-01-13 14:20 | NUR ---
BILIARY FLUID DOCUMENTATION 350ML/ GREEN BROWN FLUID, CLEAR, AND NO ODOR.
--- NOTE | 2020-01-13 14:31 | NUR ---
I faxed higher level of care request to [facility].
--- NOTE | 2020-01-13 15:13 | NUR ---
I called [facility] [phone] and spoke with Gum Puller Karen, she said this patient belongs to [facility]-I faxed her transfer packet to [phone]-she will forward it to case filler with [facility] and ask her to give me a call back.
--- NOTE | 2020-01-13 15:49 | NUR ---
PAIN MEDICATION PATIENT HAD COMPLAINTS OF PAIN, 6/. AND REQUESTED ACETAMINOPHEN FOR PAIN RELIEF AT 1545. PATIENT STATED ACETAMINOPHEN WAS OK FOR PAIN RELIEF.
[2020-01-13] MEDS: ACETAMINOPHEN 325 MG TAB PO PRN ×2 (15:50→21:47)
--- NOTE | 2020-01-13 15:51 | NUR ---
I received a call from Karen with [facility] letting me know that for the transfer to higher level of care it would go through the health plan [facility]. I called [facility] [employer] Labourer Concepcion [phone] and left message regarding the transfer to higher level of care.
--- NOTE | 2020-01-13 16:10 | NUR ---
BILIARY FLUID DOCUMENTATION DOCUMENTATION OF COLLECTED BILIARY FLUID VIA DRAINAGE BAG OF 100ML OF GREEN/BROWN FLUID.
--- NOTE | 2020-01-13 16:56 | NUR ---
IV INFILTRATED PATIENTS RIGHT FOREARM 22G WAS FOUND SWOLLEN POST ACCESS SITE, HARD, AND WITH PAIN. REMOVED PIV ACCESS TREATED WITH WARM COMPRESS. WILL CONTINUE TO MONITOR.
[2020-01-13 17:08] VITALS: BP 133/64
--- NOTE | 2020-01-13 19:40 | NUR ---
Opening Shift Note Assumed care of patient, awake and alert x4. No S/S of distress/SOB or pain. Lozano is in place, hung below bladder and draining yellow urine. Bilirubin drain pouch dressing is C/D/I to the RUQ and is draining mustard yellow/greenish fluid, the current amount in the bag is 200mL. Call light is within reach, fall precautions are in place. Instructed on POC and to call for assist PRN. All questions and concerns answered, will continue to monitor for changes Q1hr and PRN.
--- NOTE | 2020-01-13 21:47 | NUR ---
PAIN Patient complains of 7/0-10 back pain. Tylenol given as ordered, will continue to monitor.
[2020-01-13 22:00] VITALS: BP 91/53
--- NOTE | 2020-01-13 22:50 | NUR ---
PAIN REASSESSMENT Patient is resting in bed asleep, no S/S of distress or pain, will continue to monitor.
[2020-01-13] MEDS: TEMAZEPAM 15 MG CAP PO PRN (23:52)
--- NOTE | 2020-01-14 00:12 | NUR ---
325 mL emptied from the biliary drain.
[2020-01-14] MEDS: SODIUM CHLORIDE 0.9% 1,000 ML IV SCH ×3 (03:30→23:33)
[2020-01-14] MEDS: InsuLIN REG 1unit/0.01ml Soln (100units/ml) SC SCH ×5 (04:00→23:32)
[2020-01-14] MEDS: ACCU-CHEK COMFORT CURVE STRIP VI SCH ×5 (04:40→23:33)
[2020-01-14 05:00] VITALS: BP 117/68
[2020-01-14] MEDS: PIPERACILLIN-TAZOB 2.25GM 50 ML IV SCH ×4 (06:18→23:34)
[2020-01-14] MEDS: INSULIN LANTUS (GLARGINE) 1 /0.01ml (100units/ml) SC SCH ×2 (06:27→23:33)
[2020-01-14] MEDS: SEVELAMER 800 MG TAB PO SCH ×3 (08:38→17:48)
--- NOTE | 2020-01-14 08:48 | NUR ---
I received a call from NATAL[facility] Community Outreach Worker Michelle-I asked her if there were specific facilities that I needed to reach out to for higher level of care-she is going to speak with her supervisor endless track vehicle and give me a call back.
[2020-01-14 09:00] VITALS: BP 108/67
--- NOTE | 2020-01-14 09:30 | NUR ---
I received a call from Michelle miner [facility] regarding the higher level of care request-she said ideally patient should go to an in-network facility for higher level of care and to contact the medical group for a list of those facilities.
--- NOTE | 2020-01-14 09:36 | NUR ---
I called [facility] Heating And Ventilating Drafter Karen [phone] and left message asking for contact information for Heating And Ventilating Drafter with [facility] to get list of their in-network facilities-awaiting return call.
[2020-01-14 09:55] LABS: Basophils # (auto) 0 10 ^3/uL (0-0.2); Basophils % (auto) 0.3 % (0.0-2.0); Eosinophils # (auto) 0.1 10 ^3/uL (0-0.8); Eosinophils % (auto) 1.3 % (0.0-7.0); Hematocrit 33.5 % (41.0-53.0); Hemoglobin 11.4 g/dL (13.5-17.5); Lymphocytes # (auto) 1.2 10 ^3/uL (0.4-5.4); Mean Corpuscular Hemoglobin 31.7 pg (28.0-32.0); Mean Corpuscular Hgb Conc. 33.9 g/dL (32.0-36.0); Mean Corpuscular Volume 93.5 fL (80.0-100.0); Monocytes # (auto) 0.4 10 ^3/uL (0-1.3); Monocytes % (auto) 7.5 % (0.0-12.0); Neutrophils # (auto) 3.7 10 ^3/uL (1.6-8.6); Neutrophils % (auto) 68.9 % (37.0-80.0); Platelet Count (auto) 206 10^3/uL (140-450); Red Blood Cells 3.59 10^6/uL (4.5-5.90); Red Cell Distribution Width 14.5 % (11.8-14.3); White Blood Cell 5.4 10^3/uL (4.4-10.8)
[2020-01-14] MEDS: MICAFUNGIN SODIUM 100 MG in SODIUM CHL 0.9% 100 ML IV SCH (10:00)
[2020-01-14 10:02] LABS: Calcium 8.7 mg/dL (8.5-10.1); Potassium 4.5 mmol/L (3.5-5.1)
--- NOTE | 2020-01-14 10:26 | NUR ---
I received a call from Lynnette at [facility] [phone] regarding the transfer request for this patient-she asked if EUS and biopsy can be done as an outpatient-I explained that MD wants patient transferred inpatient as he has multiple complicated medical issues going on and keeps being re-admitted to the hospital. Per Lynnette, she is going to have her pediatric medical assistant Dr. Berry call Dr. Samayoa-I provided her with his contact information-I spoke with Dr. Samayoa to make him aware that Dr. Berry would be calling him.
[2020-01-14] MEDS ORDERED: DEXTROSE (50%) 50ML SYRG IV PRN (10:30)
--- NOTE | 2020-01-14 10:40 | NUR ---
Percutaneous cholecystostomy tube drained 325 of yellow green in color
[2020-01-14] MEDS: MAGNESIUM OXIDE 400 MG TAB PO SCH (10:42)
[2020-01-14] MEDS: PANTOPRAZOLE 40 MG TAB PO SCH (10:43)
[2020-01-14] MEDS: TAMSULOSIN HYDROCHLORIDE 0.4 MG CAP PO SCH (10:43)
[2020-01-14] MEDS: FINASTERIDE 5 MG TAB PO SCH (10:43)
[2020-01-14] MEDS: CLOPIDOGREL BISULFATE 75 MG TAB PO SCH (10:43)
--- NOTE | 2020-01-14 11:00 | NUR ---
Received phone call from Doctor Lock per MD he has already seen patient and patient biopsy was negative no need for consult. Doctor Danita peterson.
[2020-01-14 13:00] VITALS: BP 89/52
[2020-01-14 13:15] VITALS: BP 108/65
--- NOTE | 2020-01-14 13:25 | NUR ---
NUTRITION ASSESSMENT NOTES Please refer to link notes of nutrition screen form filed under the intervention section of the plan of care for further details. Est. Energy Needs: 7782-2193 kcal (17-20 kcal/kg BW). Est. Protein Needs: 78-94 gms/day (1.0-1.2 gms/kg Adj.BW). Will continue to monitor pertinent labs and reassess nutrient need prn Addendum: 01/14/[address] at [address] Amended: Links added.
--- NOTE | 2020-01-14 14:48 | NUR ---
I spoke with Dr. Samayoa regarding the plan of care for this patient. Per Dr. Samayoa he spoke with Dr. Berry at [facility], transfer to higher level is on hold right now-Dr. Samayoa will re-evaluate patient on Friday. I relayed this information to patient's nurse Maria D.
--- NOTE | 2020-01-14 14:58 | NUR ---
Received call from Lavonne at [facility] per Lavonne patient is to have a procedure EVS and ERCP on friday. Was wanting to know if patient will be transferred or d/c from here to drive self down to hospital?
[2020-01-14] MEDS: ONDANSETRON HCL 4 MG/2 ML VIAL IV PRN (16:19)
--- NOTE | 2020-01-14 17:04 | NUR ---
I called Lavonne at [facility] [phone] and left message regarding the possible transfer of this patient to them on Friday.
[2020-01-14 17:35] VITALS: BP 126/71
--- NOTE | 2020-01-14 19:20 | NUR ---
Opening Shift Note Assumed care of patient. Patient is awake and alert. No S/S of distress/SOB or pain. Biliary and aguilar intact, patent and draining to gravity. Instructed on POC and to call for assist PRN, will continue to monitor for changes Q1hr and PRN. Bed locked in lowest position and bed rails up x2. Call light within reach.
--- NOTE | 2020-01-14 20:30 | NUR ---
Biliary drainage of 400ml
[2020-01-14 22:00] VITALS: BP 131/76
[2020-01-14] MEDS: TEMAZEPAM 15 MG CAP PO PRN (23:45)
--- NOTE | 2020-01-15 03:38 | NUR ---
Assumed care of patient Received report from Brent CHAN.
--- NOTE | 2020-01-15 03:45 | NUR ---
Biliary drainage of 250ml
[2020-01-15] MEDS: ACETAMINOPHEN 325 MG TAB PO PRN (04:04)
[2020-01-15 05:00] VITALS: BP 119/54
[2020-01-15 05:56] LABS: Albumin 2.5 g/dL (3.4-5.0); Calcium 8.9 mg/dL (8.5-10.1); Potassium 4.6 mmol/L (3.5-5.1)
[2020-01-15 06:01] LABS: BUN/Creatinine Ratio 27.6; Bilirubin, Total 0.5 mg/dL (0.2-1.0); Phosphorus 1.7 mg/dL (2.5-4.90); Total Protein 7.3 g/dL (6.4-8.2)
[2020-01-15] MEDS: PIPERACILLIN-TAZOB 2.25GM 50 ML IV SCH ×3 (06:50→18:21)
[2020-01-15] MEDS: InsuLIN REG 1unit/0.01ml Soln (100units/ml) SC SCH ×4 (07:15→22:35)
[2020-01-15] MEDS: ACCU-CHEK COMFORT CURVE STRIP VI SCH ×4 (07:16→22:25)
[2020-01-15] MEDS: INSULIN LANTUS (GLARGINE) 1 /0.01ml (100units/ml) SC SCH ×2 (07:16→22:35)
--- NOTE | 2020-01-15 07:25 | NUR ---
Opening shift note Assumed care from NOC RN. Patient is AOx4, no s/s of sob, pain or distress noted at this time. Bed is in lowest locked position, side rails up x2 and call light is within reach. Updated patient on plan of care and patient verbalized understanding. I will continue to monitor Q1hr and PRN.
[2020-01-15 09:00] VITALS: BP 99/57
--- NOTE | 2020-01-15 09:00 | NUR ---
Received call from family Veronica called regarding if patient will be transferred to another facility. Updated them that per Dr. Pacheco he will be re-evaluating the patient. She asked to know what the attending physicians plan of care is for the day. Updated her that physician hasn't rounded on patient. Veronica stated she will call back.
[2020-01-15] MEDS: SODIUM CHLORIDE 0.9% 1,000 ML IV SCH ×2 (09:30→19:30)
[2020-01-15] MEDS: MAGNESIUM OXIDE 400 MG TAB PO SCH (11:30)
[2020-01-15] MEDS: MICAFUNGIN SODIUM 100 MG in SODIUM CHL 0.9% 100 ML IV SCH (11:30)
[2020-01-15] MEDS: PANTOPRAZOLE 40 MG TAB PO SCH (11:31)
[2020-01-15] MEDS: CLOPIDOGREL BISULFATE 75 MG TAB PO SCH (11:31)
[2020-01-15] MEDS: FINASTERIDE 5 MG TAB PO SCH (11:31)
[2020-01-15] MEDS: TAMSULOSIN HYDROCHLORIDE 0.4 MG CAP PO SCH (11:32)
[2020-01-15 13:00] VITALS: BP 95/59
--- NOTE | 2020-01-15 14:20 | NUR ---
patient complaining of low back pain level at 7/10. Patient only has Tylenol 650 mg for pain level of 1-3. Informed patient that i will contact Dr. Arciniega to get appropriate pain medication dosage.
--- NOTE | 2020-01-15 14:38 | NUR ---
Called MD Called Dr. Arciniega regarding patient pain level of 7/10 and patient does not have a pain medication appropriate for pain level. Per MD change to Tylenol 3 Q6 PRN for pain level of 7-10. I will follow through with MD orders.
[2020-01-15] MEDS: ACETAMINOPHEN/CODEINE#3 (300/30mg) TAB PO PRN (16:08)
--- NOTE | 2020-01-15 17:05 | NUR ---
Pain reassessment Patient stated " my pain is now at 4 out of 10. this is tolerable for me." I will continue to monitor q1hr and PRN.
[2020-01-15 17:11] VITALS: BP 136/73
--- NOTE | 2020-01-15 19:43 | NUR ---
Closing shift note Endorsed care to NOC ROCIO Kennedy. No s/s of pain, sob or distress at this time.
[2020-01-15 22:00] VITALS: BP 110/61
[2020-01-15] MEDS: TEMAZEPAM 15 MG CAP PO PRN (22:32)
[2020-01-16] MEDS: PIPERACILLIN-TAZOB 2.25GM 50 ML IV SCH ×4 (00:52→17:55)
[2020-01-16] MEDS: ACETAMINOPHEN/CODEINE#3 (300/30mg) TAB PO PRN ×2 (03:19→09:41)
[2020-01-16 05:00] VITALS: BP 138/74
[2020-01-16] MEDS: SODIUM CHLORIDE 0.9% 1,000 ML IV SCH ×2 (05:30→16:20)
[2020-01-16 05:39] LABS: Potassium 5.2 mmol/L (3.5-5.1)
[2020-01-16 05:51] LABS: Albumin 2.4 g/dL (3.4-5.0); BUN/Creatinine Ratio 22.4; Bilirubin, Total 0.7 mg/dL (0.2-1.0); Calcium 8.5 mg/dL (8.5-10.1); Phosphorus 2.1 mg/dL (2.5-4.90); Uric Acid 4.7 mg/dL (3.5-7.2)
[2020-01-16] MEDS: ACCU-CHEK COMFORT CURVE STRIP VI SCH ×4 (06:25→22:22)
[2020-01-16] MEDS: InsuLIN REG 1unit/0.01ml Soln (100units/ml) SC SCH ×4 (06:31→22:24)
[2020-01-16] MEDS: INSULIN LANTUS (GLARGINE) 1 /0.01ml (100units/ml) SC SCH ×2 (06:32→22:23)
--- NOTE | 2020-01-16 07:00 | NUR ---
830ml of biliary drainage entire shift. Will endorse care to day shift RN
--- NOTE | 2020-01-16 07:30 | NUR ---
Opening shift note Assumed care from NOC ROCIO Kennedy. Patient is AOx4, no s/s of pain, distress, or SOB noted at this time. Bed is in lowest locked position, side rails up x2, and call light is within reach. Biliary drain and Lozano are both patent and draining. Updated patient on plan of care, and verbalized understanding. I will continue to monitor Q1hr and PRN.
--- NOTE | 2020-01-16 08:30 | NUR ---
Emptied 150 ML of biliary drainage.
[2020-01-16 08:37] VITALS: BP 113/53
--- NOTE | 2020-01-16 08:45 | NUR ---
Physician rounding Updated Dr. Arciniega on patient status, potassium draw this morning was 5.2, per MD inform MD Miramontes and continue current care. No new orders at this time.
[2020-01-16] MEDS: PANTOPRAZOLE 40 MG TAB PO SCH (09:40)
[2020-01-16] MEDS: MAGNESIUM OXIDE 400 MG TAB PO SCH (09:40)
[2020-01-16] MEDS: TAMSULOSIN HYDROCHLORIDE 0.4 MG CAP PO SCH (09:40)
[2020-01-16] MEDS: MICAFUNGIN SODIUM 100 MG in SODIUM CHL 0.9% 100 ML IV SCH (09:41)
[2020-01-16] MEDS: CLOPIDOGREL BISULFATE 75 MG TAB PO SCH (09:41)
[2020-01-16] MEDS: FINASTERIDE 5 MG TAB PO SCH (09:41)
--- NOTE | 2020-01-16 12:35 | NUR ---
Emptied Biliary drainage of 250ml.
[2020-01-16 12:36] VITALS: BP 91/61
--- NOTE | 2020-01-16 12:37 | NUR ---
Emptied 1900ml of urine from aguilar.
[2020-01-16 16:20] VITALS: BP 140/69
--- NOTE | 2020-01-16 19:20 | NUR ---
Closing shift note Endorsed care to NOC ROCIO Beatty. No s/s of distress noted at this time.
--- NOTE | 2020-01-16 19:34 | NUR ---
Opening Shift Note Received report and assumed care of patient. Patient is awake and alert. No signs or symptoms of distress noted, patient currently denies pain. Instructed patient on plan of care and to call for assistance as needed. Will continue to monitor.
[2020-01-16 22:00] VITALS: BP 108/70
[2020-01-17] MEDS: PIPERACILLIN-TAZOB 2.25GM 50 ML IV SCH ×2 (00:04→06:17)
[2020-01-17] MEDS: TEMAZEPAM 15 MG CAP PO PRN ×2 (00:05→23:21)
[2020-01-17] MEDS ORDERED: PANTOPRAZOLE 40 MG TAB PO ONE (04:30)
--- NOTE | 2020-01-17 04:30 | NUR ---
[place] Hospitalist Patient complaining of "gas pain" to the abdomen. Offered patient pain medication per MD order, patient refused. [facility] Hospitalist Received new order for Protonix 40mg PO ONCE. Order read back and verified, will carry out and continue to monitor.
[2020-01-17] MEDS: SODIUM CHLORIDE 0.9% 1,000 ML IV SCH ×3 (05:05→22:44)
[2020-01-17 05:35] VITALS: BP 141/68
[2020-01-17 05:48] LABS: Albumin 2.5 g/dL (3.4-5.0); Calcium 8.5 mg/dL (8.5-10.1)
[2020-01-17 05:54] LABS: BUN/Creatinine Ratio 16.8; Bilirubin, Total 0.5 mg/dL (0.2-1.0)
[2020-01-17] MEDS: ACCU-CHEK COMFORT CURVE STRIP VI SCH ×4 (06:36→22:07)
[2020-01-17] MEDS: InsuLIN REG 1unit/0.01ml Soln (100units/ml) SC SCH ×4 (06:36→22:04)
[2020-01-17] MEDS: INSULIN LANTUS (GLARGINE) 1 /0.01ml (100units/ml) SC SCH ×2 (06:36→22:05)
[2020-01-17 08:40] VITALS: BP 101/53
--- NOTE | 2020-01-17 09:29 | NUR ---
I received a call from Lynnette at [facility] [phone] asking if patient is stable to be discharged home today and go to out patient EUS at [facility] today. I called Dr. Samayoa to let him know, he will call me after he sees the patient.
[2020-01-17] MEDS ORDERED: levoFLOXacin 500 MG TAB PO ONE (10:00)
[2020-01-17] MEDS ORDERED: FLUCONAZOLE 100 MG TAB PO ONE (10:00)
[2020-01-17] MEDS: FLUCONAZOLE 100 MG TAB PO SCH (10:00)
--- NOTE | 2020-01-17 10:08 | NUR ---
I received a call from Dr. Samayoa letting me know that he would discharge patient home tomorrow and that patient's Veronica spoke with NATALY and is going to call the medical group. I called [facility] and spoke with Lynnette [phone] to let her know. I asked her to call me after she speaks with patient's regarding outpatient appointment. Per Dr. Samayoa patient will not need IV ATB at home.
--- NOTE | 2020-01-17 10:51 | NUR ---
I spoke with Lynnette from [facility] [phone]-she let me know that she is working with the to set up transportation to and from outpatient procedure that will be done at [facility]. Per Lynnette she will give me a call back when that is arranged.
[2020-01-17] MEDS: TAMSULOSIN HYDROCHLORIDE 0.4 MG CAP PO SCH (11:15)
[2020-01-17] MEDS: MAGNESIUM OXIDE 400 MG TAB PO SCH (11:15)
[2020-01-17] MEDS: levoFLOXacin 500 MG TAB PO SCH (11:15)
[2020-01-17] MEDS: PANTOPRAZOLE 40 MG TAB PO SCH (11:16)
[2020-01-17] MEDS: CLOPIDOGREL BISULFATE 75 MG TAB PO SCH (11:16)
[2020-01-17] MEDS: FINASTERIDE 5 MG TAB PO SCH (11:16)
--- NOTE | 2020-01-17 11:30 | NUR ---
BILIARY DISCHARGE NOTED 500 ML OF BILIARY DISCHARGE, BROWN/GREEN, WITHOUT ODOR.
[2020-01-17 13:00] VITALS: BP 108/63
[2020-01-17] MEDS: ACETAMINOPHEN/CODEINE#3 (300/30mg) TAB PO PRN ×2 (13:44→22:06)
--- NOTE | 2020-01-17 14:08 | NUR ---
CANCELLED ORDERS PATIENT HAD TWO ORDERS OF DIFLUCAN 200MG/2 TABS AND LEVAQUIN 500MG/1TAB TO BE GIVEN AT 1000. PATIENT ALSO HAD SCHEDULE ORDERS OF THE [facility] MEDICATIONS AND DOSES ONE TIME ORDERS. CALLED PHARMACY TO CLARIFY, CALLED MD DR. CHAVEZ TO CLARIFY. RECOMMENDED TO CANCEL THE ONE TIME ORDERS AND CONTINUED DOSING SCHEDULE. WILL COMPLETE ORDERS CLARIFIED.
[2020-01-17] MEDS: metroNIDAZOLE 500 MG TAB PO SCH ×2 (15:27→22:06)
--- NOTE | 2020-01-17 15:28 | NUR ---
AGUILAR CATHETER REMOVAL Aguilar catheter dc'd Order to discontinue aguilar catheter. Aguilar dc'd with clean technique following deflation of balloon. Patient tolerated well with no complaints of pain. Continue care.
[2020-01-17 16:29] VITALS: BP 127/76
--- NOTE | 2020-01-17 17:25 | NUR ---
POC POC BLOOD GLUCOSE 244mg/dL
[2020-01-17 22:00] VITALS: BP 131/69
--- NOTE | 2020-01-17 23:43 | NUR ---
PATIENT WAS MET AT 1999. WAS AWAKE AND ALERT. DENIED PAIN. IV WAS INFUSING AND IV SITE ASYMPTOMATIC.
--- NOTE | 2020-01-17 23:44 | NUR ---
2206 WAS MEDICATED FOR ABDOMINAL PAIN 03/15. FELT RELIEVED THEREAFTER..
--- NOTE | 2020-01-18 04:39 | NUR ---
0400: PATIENT SLEEPING WELL. IV FLUID INFUSING. HOURLY ROUNDS CONTINUES.
[2020-01-18 05:00] VITALS: BP 150/77
[2020-01-18 05:27] LABS: Albumin 2.6 g/dL (3.4-5.0); Calcium 8.7 mg/dL (8.5-10.1); Potassium 3.8 mmol/L (3.5-5.1)
[2020-01-18 05:32] LABS: BUN/Creatinine Ratio 17.9; Bilirubin, Total 0.6 mg/dL (0.2-1.0); Total Protein 7.2 g/dL (6.4-8.2)
[2020-01-18] MEDS: metroNIDAZOLE 500 MG TAB PO SCH (05:42)
--- NOTE | 2020-01-18 05:55 | NUR ---
TELE BOX 26 DISCONTINUED CLEANED AND SENT TO ICU VIA THE TUBE SYSTEM ORDERED. PATIENT IS NOW OFF TELEMETRY MONITORING.
[2020-01-18] MEDS: InsuLIN REG 1unit/0.01ml Soln (100units/ml) SC SCH ×2 (06:47→11:30)
[2020-01-18] MEDS: ACCU-CHEK COMFORT CURVE STRIP VI SCH ×2 (06:49→11:30)
[2020-01-18] MEDS: INSULIN LANTUS (GLARGINE) 1 /0.01ml (100units/ml) SC SCH (06:49)
[2020-01-18] MEDS: SODIUM CHLORIDE 0.9% 1,000 ML IV SCH (07:46)
[2020-01-18 08:42] VITALS: BP 91/51
[2020-01-18] MEDS: FINASTERIDE 5 MG TAB PO SCH (09:00)
[2020-01-18] MEDS: CLOPIDOGREL BISULFATE 75 MG TAB PO SCH (09:00)
[2020-01-18] MEDS: TAMSULOSIN HYDROCHLORIDE 0.4 MG CAP PO SCH (09:00)
[2020-01-18] MEDS: MAGNESIUM OXIDE 400 MG TAB PO SCH (09:01)
[2020-01-18] MEDS: FLUCONAZOLE 100 MG TAB PO SCH (09:01)
[2020-01-18] MEDS: PANTOPRAZOLE 40 MG TAB PO SCH (09:01)
[2020-01-18] MEDS: levoFLOXacin 500 MG TAB PO SCH (09:01)
--- NOTE | 2020-01-18 10:23 | NUR ---
I spoke with Dr. Samayoa regarding the plan of care for this patient. Patient is to discharge home today. I called Lynnette with [facility] [phone], she said patient has EUS scheduled at [facility] at 12 noon tomorrow-patient to check in at 10am. Per Lynnette she is waiting for finalization of transportation arrangements to procedure-then she will give patient's a call. I called patient's Veronica [phone] and let her know that she will be getting a call from Lynnette at [facility]. Per Lynnette at [place]-patient has oncology appointment in [place] January 20.
[2020-01-18 11:17] VITALS: BP 86/45
[2020-01-18 13:00] VITALS: BP 95/70
--- NOTE | 2020-01-18 13:01 | NUR ---
Nutrition Follow-up Wt.: 92.6 kg Pt remains on CCHO 60g, Renal diet with good PO intake aeb avg 93% intake over 7 meals. Will continue to monitor PO intake, skin status, pertinent labs and weight trends. Will f/u in 3 to 5 days. Est. Energy Needs: 1892-9630 kcal (17-20 kcal/kg BW). Est. Protein Needs: 78-94 gms/day (1.0-1.2 gms/kg Adj.BW). Labs 01/17: BUN 26 H, Cr 1.45 H, Glucose 207 H, POC 189 H, Albumin 2.6 L. Skin: Darshan scale 20, low risk, skin intact. GI: Pt had BM on 01/18/20 per hammer smith. PES: 1) Altered nutrition related lab values r/t current medical condition aeb hypoalbuminemia, elevated RFTs Recommendations: 1) Consider to continue monitoring pertinent labs. If Albumin continues trending down, consider Prostat 1 pkt BID. 2) Continue current plan of care.
[2020-01-18] MEDS: ACETAMINOPHEN/CODEINE#3 (300/30mg) TAB PO PRN (13:34)
--- NOTE | 2020-01-18 14:26 | NUR ---
Discharge Went over discharge paperwork with patient. Gave prescription to patient. Removed IV intact, no problems. Med Surg patient; no telemetry. Answered all questions. Patient was taken out with all belongings to private vehicle where family picked him up.
== END 2020-01-18 14:28 | disposition home or self-care (01) | DRG 871 ==
LOC: EDBD 22:41 → ER 22:45 → TELE 22:46 → TELE-CENTR 01-09 07:30
PROVIDERS: ADMIT Hospitalist; ATTEND Internal Medicine
DX: A41.9 Sepsis, unspecified organism (principal); K83.1 Obstruction of bile duct; J96.20 Acute and chronic respiratory failure, unspecified whether with hypoxia or hypercapnia; N17.0 Acute kidney failure with tubular necrosis; J44.1 Chronic obstructive pulmonary disease with (acute) exacerbation; J45.901 Unspecified asthma with (acute) exacerbation; C25.9 Malignant neoplasm of pancreas, unspecified; E87.1 Hypo-osmolality and hyponatremia; B49 Unspecified mycosis; K86.1 Other chronic pancreatitis; K83.09 Other cholangitis; K52.9 Noninfective gastroenteritis and colitis, unspecified; I12.9 Hypertensive chronic kidney disease with stage 1 through stage 4 chronic kidney disease, or unspecified chronic kidney disease; N18.3 Chronic kidney disease, stage 3 (moderate); E78.5 Hyperlipidemia, unspecified; N40.0 Benign prostatic hyperplasia without lower urinary tract symptoms; E11.22 Type 2 diabetes mellitus with diabetic chronic kidney disease; E83.39 Other disorders of phosphorus metabolism; E87.5 Hyperkalemia; I48.91 Unspecified atrial fibrillation; N20.0 Calculus of kidney; G89.4 Chronic pain syndrome; Z80.0 Family history of malignant neoplasm of digestive organs; Z79.01 Long term (current) use of anticoagulants; Z83.3 Family history of diabetes mellitus; Z85.038 Personal history of other malignant neoplasm of large intestine; Z85.07 Personal history of malignant neoplasm of pancreas; Z85.51 Personal history of malignant neoplasm of bladder; Z87.442 Personal history of urinary calculi; Z79.891 Long term (current) use of opiate analgesic
CPT/HCPCS: 36415; 71045; 74176; 80048; 80053; 80061; 81001; 82150; 82570; 82962; 83036; 83605; 83690; 83735; 83880; 84100; 84156; 84300; 84484; 84550; 85025; 85610; 85730; 87040; 87081; 87086; 93005; 94640; 97116; 97163; 97530; C9113; G0378; J0610; J0696; J1815; J2248; J2405; J2543

== ENCOUNTER 2020-01-31 13:03 | Emergency (ER) | payer MEDICARE ==
[~2020-01-31] VITALS: Ht 177.8 cm; Wt 83.6 kg
[2020-01-31 14:12] LABS: Basophils # (auto) 0 10 ^3/uL (0-0.2); Basophils % (auto) 0.5 % (0.0-2.0); Eosinophils # (auto) 0.1 10 ^3/uL (0-0.8); Eosinophils % (auto) 2.5 % (0.0-7.0); Hematocrit 33.9 % (41.0-53.0); Hemoglobin 11.3 g/dL (13.5-17.5); Lymphocytes # (auto) 0.9 10 ^3/uL (0.4-5.4); Lymphocytes % (auto) 16.5 % (10.0-50.0); Mean Corpuscular Hemoglobin 31.1 pg (28.0-32.0); Mean Corpuscular Hgb Conc. 33.2 g/dL (32.0-36.0); Mean Corpuscular Volume 93.7 fL (80.0-100.0); Monocytes # (auto) 0.4 10 ^3/uL (0-1.3); Monocytes % (auto) 6.3 % (0.0-12.0); Neutrophils # (auto) 4.2 10 ^3/uL (1.6-8.6); Neutrophils % (auto) 74.2 % (37.0-80.0); Platelet Count (auto) 223 10^3/uL (140-450); Red Blood Cells 3.62 10^6/uL (4.5-5.90); Red Cell Distribution Width 15.4 % (11.8-14.3); White Blood Cell 5.7 10^3/uL (4.4-10.8)
[2020-01-31 14:43] LABS: Albumin 3.4 g/dL (3.4-5.0); Anion Gap 9 (5-15); Blood Urea Nitrogen 29 mg/dL (7-18); Carbon Dioxide 21 mmol/L (21-32); Chloride 108 mmol/L (98-107); Glucose 203 mg/dL (74-106); Potassium 3.5 mmol/L (3.5-5.1); Sodium 138 mmol/L (136-145)
[2020-01-31 14:50] LABS: Alanine Aminotransferase 19 U/L (16-61); Alkaline Phosphatase 116 U/L (45-117); Aspartate Aminotransferase 21 U/L (15-37); Bilirubin, Total 0.7 mg/dL (0.2-1.0); GFR African American 62 mL/min; GFR Non-African American 51 mL/min; Total Protein 8.7 g/dL (6.4-8.2)
[2020-01-31] MEDS ORDERED: HYDROmorphone HCL 2 MG/ML VL IV ONE (16:00)
[2020-01-31] MEDS ORDERED: ONDANSETRON HCL 4 MG/2 ML VIAL IV ONE (16:00)
[2020-01-31 17:20] VITALS: BP 132/83
== END 2020-01-31 17:33 | disposition home or self-care (01) ==
LOC: ER 13:03
DX: K85.90 Acute pancreatitis without necrosis or infection, unspecified (principal); E11.65 Type 2 diabetes mellitus with hyperglycemia; J44.9 Chronic obstructive pulmonary disease, unspecified; E78.5 Hyperlipidemia, unspecified; Z87.442 Personal history of urinary calculi; Z79.4 Long term (current) use of insulin; Z79.899 Other long term (current) drug therapy
CPT/HCPCS: 36415; 71045; 74176; 80053; 84484; 85025; 93005; 96374; 96375; 99285; J1170; J2405

== ENCOUNTER 2020-02-03 08:36 | Emergency (ER) | payer MEDICARE ==
[~2020-02-03] VITALS: Ht 175.3 cm; Wt 77.1 kg
[2020-02-03 09:25] LABS: Basophils # (auto) 0 10 ^3/uL (0-0.2); Basophils % (auto) 0.3 % (0.0-2.0); Eosinophils # (auto) 0.1 10 ^3/uL (0-0.8); Eosinophils % (auto) 2.5 % (0.0-7.0); Hematocrit 29.1 % (41.0-53.0); Hemoglobin 9.7 g/dL (13.5-17.5); Lymphocytes # (auto) 0.8 10 ^3/uL (0.4-5.4); Lymphocytes % (auto) 28.6 % (10.0-50.0); Mean Corpuscular Hemoglobin 31.7 pg (28.0-32.0); Mean Corpuscular Hgb Conc. 33.5 g/dL (32.0-36.0); Mean Corpuscular Volume 94.6 fL (80.0-100.0); Monocytes # (auto) 0.2 10 ^3/uL (0-1.3); Monocytes % (auto) 8.8 % (0.0-12.0); Neutrophils # (auto) 1.6 10 ^3/uL (1.6-8.6); Neutrophils % (auto) 59.8 % (37.0-80.0); Nucleated Red Blood Cells % 0.1 %; Platelet Count (auto) 193 10^3/uL (140-450); Red Blood Cells 3.08 10^6/uL (4.5-5.90); Red Cell Distribution Width 15.4 % (11.8-14.3); White Blood Cell 2.7 10^3/uL (4.4-10.8)
[2020-02-03 09:45] LABS: Albumin 2.7 g/dL (3.4-5.0); Calcium 8.7 mg/dL (8.5-10.1); Potassium 3.7 mmol/L (3.5-5.1)
[2020-02-03] MEDS ORDERED: HYDROcodone-ACET 10/325MG TAB PO ONE (09:45)
[2020-02-03 09:48] LABS: Bilirubin, Total 0.3 mg/dL (0.2-1.0); Total Protein 7.1 g/dL (6.4-8.2)
[2020-02-03 11:04] VITALS: BP 114/66
== END 2020-02-03 11:51 | disposition home or self-care (01) ==
LOC: ER 08:36
DX: K86.9 Disease of pancreas, unspecified (principal); E44.0 Moderate protein-calorie malnutrition; D64.9 Anemia, unspecified; E11.65 Type 2 diabetes mellitus with hyperglycemia; J44.9 Chronic obstructive pulmonary disease, unspecified; E11.9 Type 2 diabetes mellitus without complications; E78.5 Hyperlipidemia, unspecified; Z68.25 Body mass index [BMI] 25.0-25.9, adult; Z87.442 Personal history of urinary calculi; Z88.6 Allergy status to analgesic agent
CPT/HCPCS: 36415; 71045; 74176; 80053; 85025; 93005

== ENCOUNTER 2020-02-10 05:24 | Inpatient (IN) | payer MEDICARE ==
[~2020-02-10] VITALS: Ht 175.3 cm; Wt 92.5 kg
[2020-02-10] MEDS ORDERED: DEXTROSE 50% SYRINGE 50 ML IV ONE (06:22)
[2020-02-10] MEDS ORDERED: DEXTROSE (50%) 50ML SYRG IV ONE ×2 (06:25→11:45)
[2020-02-10 06:48] LABS: Basophils # (auto) 0 10 ^3/uL (0-0.2); Basophils % (auto) 0.2 % (0.0-2.0); Eosinophils # (auto) 0 10 ^3/uL (0-0.8); Eosinophils % (auto) 0.5 % (0.0-7.0); Hematocrit 30.9 % (41.0-53.0); Hemoglobin 10.4 g/dL (13.5-17.5); Lymphocytes # (auto) 0.4 10 ^3/uL (0.4-5.4); Lymphocytes % (auto) 7.5 % (10.0-50.0); Mean Corpuscular Hemoglobin 31.4 pg (28.0-32.0); Mean Corpuscular Hgb Conc. 33.6 g/dL (32.0-36.0); Mean Corpuscular Volume 93.6 fL (80.0-100.0); Monocytes # (auto) 0.3 10 ^3/uL (0-1.3); Monocytes % (auto) 5.1 % (0.0-12.0); Neutrophils # (auto) 4.3 10 ^3/uL (1.6-8.6); Neutrophils % (auto) 86.7 % (37.0-80.0); Nucleated Red Blood Cells % 0.1 %; Platelet Count (auto) 207 10^3/uL (140-450); Red Cell Distribution Width 15.3 % (11.8-14.3)
[2020-02-10 07:17] LABS: Alanine Aminotransferase 26 U/L (16-61); Albumin 2.7 g/dL (3.4-5.0); Anion Gap 7 (5-15); Aspartate Aminotransferase 29 U/L (15-37); BUN/Creatinine Ratio 15.7; Blood Urea Nitrogen 13 mg/dL (7-18); Calcium 8.6 mg/dL (8.5-10.1); Carbon Dioxide 25 mmol/L (21-32); Chloride 109 mmol/L (98-107); GFR African American 118 mL/min; GFR Non-African American 97 mL/min; Glucose 123 mg/dL (74-106); Potassium 3.1 mmol/L (3.5-5.1); Sodium 141 mmol/L (136-145)
[2020-02-10 07:22] LABS: Alkaline Phosphatase 111 U/L (45-117); Bilirubin, Total 0.2 mg/dL (0.2-1.0); Total Protein 6.9 g/dL (6.4-8.2)
[2020-02-10] MEDS ORDERED: IOHEXOL 300 MG/ML 100ML BOTTLE IJ ONE (10:14)
[2020-02-10] MEDS ORDERED: ONDANSETRON HCL 4 MG/2 ML VIAL IV ONE (10:15)
[2020-02-10] MEDS ORDERED: DEXTROSE 10% 1,000 ML IV ONE (11:45)
[2020-02-10 12:27] LABS: Urine Bacteria NONE SEEN /hpf (None Seen); Urine Blood Negative /uL (Negative); Urine Mucus FEW (None Seen); Urine WBC 16 /hpf (0 - 3)
[2020-02-10] MEDS ORDERED: MORPHINE SULF INJ 2 MG/ML SYRINGE 1ML IV PRN (12:30)
[2020-02-10] MEDS ORDERED: NITROGLYCERIN 0.4 MG SL TAB SL PRN (12:30)
[2020-02-10] MEDS ORDERED: HYDROcodone-ACET 5/325MG TAB PO PRN (12:45)
[2020-02-10 14:00] VITALS: BP 182/99
[2020-02-10] MEDS ORDERED: TEMAZEPAM 15 MG CAP PO PRN (14:15)
[2020-02-10] MEDS ORDERED: ACETAMINOPHEN 500 MG TAB PO PRN (14:15)
[2020-02-10] MEDS ORDERED: DEXTROSE (50%) 50ML SYRG IV PRN ×2 (14:15→21:00)
[2020-02-10 14:49] VITALS: BP 182/99
[2020-02-10] MEDS: ACCU-CHEK COMFORT CURVE STRIP VI SCH ×3 (15:46→23:53)
[2020-02-10 15:57] VITALS: BP 182/99
[2020-02-10] MEDS: MORPHINE SULF INJ 2 MG/ML SYRINGE 1ML IV PRN ×2 (16:13→21:54)
[2020-02-10] MEDS: PROMETHAZINE HCL 25 MG/ML 1ML IV PRN (16:48)
--- NOTE | 2020-02-10 19:45 | NUR ---
Opening Shift Note Assumed care of patient after receiving report from ROCIO Culp. Patient awake and alert resting in bed comfortably. No S/S of distress/SOB or pain. Call light within reach, bed in lowest position x2 side rails. Instructed on POC and to call for assist PRN, will continue to monitor for changes Q1hr and PRN.
--- NOTE | 2020-02-10 20:25 | NUR ---
Hospitalist paged Patient had elevated blood glucose of 264 at scheduled accu check. No coverage/sliding scale ordered. Spoke with hospitalist and obtained order for moderate sliding scale for patients hospital stay. Will continue to monitor.
[2020-02-10] MEDS ORDERED: InsuLIN REG 1unit/0.01ml Soln (100units/ml) ONE (21:50)
[2020-02-10] MEDS: FAMOTIDINE 20 MG TAB PO SCH (21:58)
[2020-02-10] MEDS: InsuLIN REG 1unit/0.01ml Soln (100units/ml) SC SCH (21:58)
--- NOTE | 2020-02-10 22:00 | NUR ---
Elevated BP Blood pressure reading reported by NA of BP163/86 and HR of 101. RN reassessed BP after patient repositioned new reading of BP 136/66 and HR of 94. No medication indicated at this time. Will continue to monitor and assess.
[2020-02-10] MEDS: SOD CHL 0.9%/ KCL 40MEQ 1,000 ML IV SCH ×2 (23:35→23:45)
--- NOTE | 2020-02-10 23:36 | NUR ---
Medication administration Scheduled medication for 1415 of NS with KCl 40 MEQ not administered during day shift, other ordered fluids running at start of shit. Will administer next scheduled dose of NS with KCl 40 MEQ at 0015 as ordered.
[2020-02-11] MEDS: InsuLIN REG 1unit/0.01ml Soln (100units/ml) SC SCH ×3 (00:16→08:00)
--- NOTE | 2020-02-11 01:36 | NUR ---
Patient ambulating Patient called to use restroom. Patient sat at side of bed with no assistance and dangled feet while RN disconnected patient from IV. Patient stated he does not use assistive devices to ambulate at home. Patient was witnessed to have steady and slow gait with upper torso slouched. Patient was instructed to call for assistance when the need for ambulation occurs. Patient verbalized understanding.
[2020-02-11] MEDS: PROMETHAZINE HCL 25 MG/ML 1ML IV PRN (03:40)
[2020-02-11] MEDS: ACCU-CHEK COMFORT CURVE STRIP VI SCH ×2 (04:05→08:27)
[2020-02-11] MEDS: MORPHINE SULF INJ 2 MG/ML SYRINGE 1ML IV PRN (04:06)
[2020-02-11 05:49] VITALS: BP 146/82
[2020-02-11 07:09] LABS: Albumin 2.4 g/dL (3.4-5.0); Calcium 8.6 mg/dL (8.5-10.1)
[2020-02-11 07:11] LABS: BUN/Creatinine Ratio 9.2
[2020-02-11 07:13] LABS: Bilirubin, Total 0.4 mg/dL (0.2-1.0); Total Protein 6.6 g/dL (6.4-8.2)
[2020-02-11 08:59] VITALS: BP 132/87
[2020-02-11] MEDS: FAMOTIDINE 20 MG TAB PO SCH (10:27)
[2020-02-11] MEDS ORDERED: DEXTROSE (50%) 50ML SYRG IV PRN (11:00)
[2020-02-11] MEDS ORDERED: ACCU-CHEK COMFORT CURVE STRIP VI SCH (11:30)
[2020-02-11] MEDS ORDERED: InsuLIN REG 1unit/0.01ml Soln (100units/ml) SC SCH (11:30)
[2020-02-11 12:54] VITALS: BP 121/79
--- NOTE | 2020-02-11 14:13 | NUR ---
Discharge instructions given as ordered. Encourage to follow up with PMD as instructed. All questions and concerns addressed. Patient verbalized understanding. Medication reconciliation form completed and copy given to patient. IV removed with catheter intact, pressure dressing applied. Telemetry unit returned to ICU. Patient taken to vehicle via wheelchair with all personal belongings, accompanied by staff. Family member waiting in front lobby for transportation. No distress noted at time of departure.
== END 2020-02-11 14:13 | disposition home or self-care (01) | DRG 638 ==
LOC: EDBD 05:24 → ER 05:24 → TELE 05:25 → TELE-CENTR 13:49
PROVIDERS: ADMIT Internal Medicine; ATTEND Internal Medicine
DX: E11.649 Type 2 diabetes mellitus with hypoglycemia without coma (principal); E44.0 Moderate protein-calorie malnutrition; E86.0 Dehydration; D64.9 Anemia, unspecified; E87.6 Hypokalemia; R00.0 Tachycardia, unspecified; E78.5 Hyperlipidemia, unspecified; G89.29 Other chronic pain; I48.91 Unspecified atrial fibrillation; J44.9 Chronic obstructive pulmonary disease, unspecified; M54.9 Dorsalgia, unspecified; K86.9 Disease of pancreas, unspecified; F32.9 Major depressive disorder, single episode, unspecified; N40.0 Benign prostatic hyperplasia without lower urinary tract symptoms; Z80.0 Family history of malignant neoplasm of digestive organs; Z83.3 Family history of diabetes mellitus; Z85.51 Personal history of malignant neoplasm of bladder; Z87.442 Personal history of urinary calculi; Z68.26 Body mass index [BMI] 26.0-26.9, adult
CPT/HCPCS: 36415; 71045; 77002; 80053; 81001; 82962; 83880; 84484; 85025; 87081; 93005; 96361; 96374; 96375; 96376; 99291; G0378; J1815; J2405

== ENCOUNTER 2020-06-01 15:40 | Inpatient (IN) | payer MEDICARE ==
[~2020-06-01] VITALS: Ht 175.3 cm; Wt 84.1 kg
[2020-06-01] MEDS ORDERED: SODIUM CHLORIDE 0.9% 1,000 ML IV ONE (16:36)
[2020-06-01] MEDS ORDERED: cefTRIAXone 1GM/50ML D5W 50 ML IV ONE (16:45)
[2020-06-01] MEDS ORDERED: CLINDAMYCIN 600MG IV 50 ML IV ONE (16:45)
[2020-06-01] MEDS ORDERED: ENOXAPARIN SOD 80 MG/0.8ML SYRINGE SC ONE (17:15)
[2020-06-01] MEDS ORDERED: KETOROLAC TROMETH 30 MG/ML 1ML VIAL IV ONE (18:45)
[2020-06-01] MEDS ORDERED: IOHEXOL 350 MG/ML 100ML IJ ONE (18:48)
[2020-06-01 19:17] LABS: Basophils # (auto) 0 10 ^3/uL (0-0.2); Basophils % (auto) 0.2 % (0.0-2.0); Eosinophils # (auto) 0 10 ^3/uL (0-0.8); Eosinophils % (auto) 0.1 % (0.0-7.0); Hematocrit 28.6 % (41.0-53.0); Hemoglobin 9.3 g/dL (13.5-17.5); Lymphocytes # (auto) 0.7 10 ^3/uL (0.4-5.4); Lymphocytes % (auto) 9.5 % (10.0-50.0); Mean Corpuscular Hemoglobin 29.4 pg (28.0-32.0); Mean Corpuscular Hgb Conc. 32.7 g/dL (32.0-36.0); Mean Corpuscular Volume 89.9 fL (80.0-100.0); Monocytes # (auto) 0.8 10 ^3/uL (0-1.3); Monocytes % (auto) 10.6 % (0.0-12.0); Neutrophils # (auto) 6.1 10 ^3/uL (1.6-8.6); Neutrophils % (auto) 79.6 % (37.0-80.0); Platelet Count (auto) 180 10^3/uL (140-450); Red Blood Cells 3.18 10^6/uL (4.5-5.90); White Blood Cell 7.6 10^3/uL (4.4-10.8)
[2020-06-01 19:25] LABS: Red Cell Distribution Width 21.1 % (11.8-14.3)
[2020-06-01 19:28] LABS: Albumin 2.8 g/dL (3.4-5.0); Calcium 8.7 mg/dL (8.5-10.1)
[2020-06-01 19:31] LABS: INR 1.84 (0.9-1.15); Lactic Acid w/Reflex 2.9 mmol/L (0.4-2.0); Partial Thromboplastin Time 42.6 sec (23.0-31.2)
[2020-06-01 19:34] LABS: Bilirubin, Total 0.5 mg/dL (0.2-1.0); Total Protein 6.8 g/dL (6.4-8.2)
[2020-06-01 19:38] LABS: Potassium 2.9 mmol/L (3.5-5.1)
[2020-06-01] MEDS ORDERED: DEXTROSE 50% SYRINGE 50 ML IV ONE (19:45)
[2020-06-01] MEDS ORDERED: POTASSIUM EFFERVESENT TAB 25 MEQ PO ONE (20:00)
[2020-06-01] MEDS ORDERED: ONDANSETRON HCL 4 MG/2 ML VIAL ONE (20:33)
[2020-06-01] MEDS ORDERED: ONDANSETRON HCL 4 MG/2 ML VIAL IV ONE ×2 (20:45→21:15)
[2020-06-01] MEDS ORDERED: DEXTROSE (50%) 50ML SYRG IV PRN ×2 (21:00→21:45)
[2020-06-01] MEDS ORDERED: DOCUSATE SOD 100 MG CAP PO PRN (21:00)
[2020-06-01] MEDS ORDERED: ALBUTEROL SULF 2.5 MG/0.5ML(0.5%) NEB SOLN NEB PRN (21:00)
[2020-06-01] MEDS ORDERED: ACETAMINOPHEN 325 MG TAB PO PRN (21:00)
[2020-06-01] MEDS ORDERED: IPRATROPIUM BROM 0.5 MG/2.5ML INH SOL NEB PRN (21:00)
[2020-06-01] MEDS ORDERED: ACCU-CHEK COMFORT CURVE STRIP VI SCH (21:00)
[2020-06-01] MEDS ORDERED: ONDANSETRON HCL 4 MG/2 ML VIAL IV PRN (21:00)
[2020-06-01] MEDS ORDERED: POTASSIUM CHL 20MEQ/100ML 100 ML IV ONE (21:15)
[2020-06-01] MEDS: TAMSULOSIN HYDROCHLORIDE 0.4 MG CAP PO SCH (21:42)
[2020-06-01] MEDS ORDERED: ATORVASTATIN 20 MG TAB PO SCH (22:00)
[2020-06-01] MEDS ORDERED: HEPARIN SODIUM (PORCINE) 5000 UNITS/ML 1ML VIAL IV ONE (23:00)
[2020-06-01 23:15] VITALS: BP 135/71
[2020-06-01] MEDS: InsuLIN REG 1unit/0.01ml Soln (100units/ml) SC SCH (23:54)
[2020-06-01] MEDS: ACCU-CHEK COMFORT CURVE STRIP VI SCH (23:54)
[2020-06-02] MEDS: HEPARIN DRIP/D5W 100UNITS/ML 250 ML IV SCH ×3 (01:05→16:17)
[2020-06-02] MEDS: MORPHINE SULF INJ 2 MG/ML SYRINGE 1ML IV PRN ×4 (02:38→20:46)
[2020-06-02] MEDS: InsuLIN REG 1unit/0.01ml Soln (100units/ml) SC SCH ×6 (04:00→23:46)
[2020-06-02] MEDS: ACCU-CHEK COMFORT CURVE STRIP VI SCH ×6 (04:08→23:26)
[2020-06-02 04:13] VITALS: BP 135/71
[2020-06-02 05:00] VITALS: BP 139/91
[2020-06-02] MEDS ORDERED: SODIUM CHLORIDE 0.9% 1,000 ML IV SCH (07:00)
[2020-06-02 07:29] LABS: Basophils # (auto) 0 10 ^3/uL (0-0.2); Basophils % (auto) 0.2 % (0.0-2.0); Eosinophils # (auto) 0 10 ^3/uL (0-0.8); Eosinophils % (auto) 0.5 % (0.0-7.0); Hemoglobin 8.8 g/dL (13.5-17.5); Lymphocytes # (auto) 0.8 10 ^3/uL (0.4-5.4); Lymphocytes % (auto) 12.7 % (10.0-50.0); Mean Corpuscular Hemoglobin 28.9 pg (28.0-32.0); Mean Corpuscular Hgb Conc. 32.7 g/dL (32.0-36.0); Mean Corpuscular Volume 88.4 fL (80.0-100.0); Monocytes # (auto) 0.9 10 ^3/uL (0-1.3); Monocytes % (auto) 14.5 % (0.0-12.0); Neutrophils # (auto) 4.6 10 ^3/uL (1.6-8.6); Neutrophils % (auto) 72.1 % (37.0-80.0); Nucleated Red Blood Cells % 0.1 %; Platelet Count (auto) 156 10^3/uL (140-450); Red Blood Cells 3.05 10^6/uL (4.5-5.90); White Blood Cell 6.3 10^3/uL (4.4-10.8)
[2020-06-02 07:43] LABS: Calcium 8.6 mg/dL (8.5-10.1); Potassium 3.9 mmol/L (3.5-5.1)
[2020-06-02 07:46] LABS: BUN/Creatinine Ratio 20.2
[2020-06-02 08:00] LABS: INR 1.56 (0.9-1.15)
[2020-06-02 08:03] LABS: Partial Thromboplastin Time 75.5 sec (23.0-31.2)
[2020-06-02 09:00] VITALS: BP 137/76
[2020-06-02] MEDS ORDERED: ENOXAPARIN SOD 80 MG/0.8ML SYRINGE SC SCH (10:00)
[2020-06-02] MEDS ORDERED: ASPirin 81 mg TAB PO SCH (10:00)
[2020-06-02] MEDS ORDERED: cefTRIAXone 1GM/50ML D5W 50 ML IV SCH (10:00)
[2020-06-02] MEDS ORDERED: HCTZ 25 MG TAB PO SCH (10:00)
[2020-06-02] MEDS ORDERED: D5W/SOD CHLO 0.9% 1,000 ML IV SCH (10:30)
[2020-06-02] MEDS: TAMSULOSIN HYDROCHLORIDE 0.4 MG CAP PO SCH ×2 (11:02→21:51)
[2020-06-02] MEDS: DULoxetine HCL 30 MG CAP PO SCH (11:02)
[2020-06-02] MEDS: FINASTERIDE 5 MG TAB PO SCH (11:02)
[2020-06-02] MEDS: CYANOCOBALAMIN 500 MCG TAB PO SCH (11:03)
[2020-06-02] MEDS: LISINOPRIL 20 MG TAB PO SCH (11:03)
[2020-06-02] MEDS: Glucerna Carbsteady SHAKE Vanilla 8oz PO SCH ×2 (12:51→17:54)
[2020-06-02 13:00] VITALS: BP 142/89
[2020-06-02] MEDS: oxyCODONE HCL 5MG TAB PO PRN ×2 (14:41→23:26)
[2020-06-02] MEDS: metroNIDAZOLE 500 MG TAB PO SCH ×2 (14:50→21:51)
[2020-06-02 15:29] LABS: INR 1.48 (0.9-1.15); Partial Thromboplastin Time 56.4 sec (23.0-31.2)
[2020-06-02 16:21] VITALS: BP 148/90
[2020-06-02 16:31] LABS: Urine Bacteria NONE SEEN /hpf (None Seen); Urine Blood Negative /uL (Negative); Urine Specific Gravity 1.018 (1.001-1.035); Urine WBC 2 /hpf (0 - 3)
[2020-06-02] MEDS ORDERED: MELATONIN PO SCH (18:00)
[2020-06-02 21:05] LABS: INR 1.47 (0.9-1.15); Partial Thromboplastin Time 54.7 sec (23.0-31.2)
[2020-06-02 22:00] VITALS: BP 154/93
[2020-06-03 03:13] LABS: Basophils # (auto) 0 10 ^3/uL (0-0.2); Basophils % (auto) 0.4 % (0.0-2.0); Eosinophils # (auto) 0.1 10 ^3/uL (0-0.8); Hematocrit 27.1 % (41.0-53.0); Hemoglobin 8.9 g/dL (13.5-17.5); Lymphocytes % (auto) 15.7 % (10.0-50.0); Mean Corpuscular Hemoglobin 28.6 pg (28.0-32.0); Mean Corpuscular Volume 86.9 fL (80.0-100.0); Monocytes # (auto) 0.8 10 ^3/uL (0-1.3); Monocytes % (auto) 12.8 % (0.0-12.0); Neutrophils # (auto) 4.5 10 ^3/uL (1.6-8.6); Neutrophils % (auto) 70.1 % (37.0-80.0); Platelet Count (auto) 154 10^3/uL (140-450); Red Blood Cells 3.12 10^6/uL (4.5-5.90); Red Cell Distribution Width 20.6 % (11.8-14.3); White Blood Cell 6.4 10^3/uL (4.4-10.8)
[2020-06-03] MEDS: ACCU-CHEK COMFORT CURVE STRIP VI SCH ×6 (03:18→23:45)
[2020-06-03] MEDS: MORPHINE SULF INJ 2 MG/ML SYRINGE 1ML IV PRN ×3 (03:18→20:10)
[2020-06-03 03:33] LABS: Calcium 8.8 mg/dL (8.5-10.1); Potassium 3.9 mmol/L (3.5-5.1)
[2020-06-03 03:44] LABS: INR 1.48 (0.9-1.15); Partial Thromboplastin Time 45.4 sec (23.0-31.2)
[2020-06-03] MEDS: InsuLIN REG 1unit/0.01ml Soln (100units/ml) SC SCH ×6 (03:51→23:47)
[2020-06-03 05:00] VITALS: BP 142/87
[2020-06-03] MEDS: metroNIDAZOLE 500 MG TAB PO SCH (06:29)
[2020-06-03 08:00] VITALS: BP 137/82
[2020-06-03] MEDS: Glucerna Carbsteady SHAKE Vanilla 8oz PO SCH ×3 (08:00→18:18)
[2020-06-03 09:55] LABS: INR 1.41 (0.9-1.15); Partial Thromboplastin Time 38.9 sec (23.0-31.2)
[2020-06-03] MEDS: DULoxetine HCL 30 MG CAP PO SCH (09:56)
[2020-06-03] MEDS: FINASTERIDE 5 MG TAB PO SCH (09:57)
[2020-06-03] MEDS: FLORASTOR (S. BOULARDII) 250 MG CAP PO SCH (09:57)
[2020-06-03] MEDS: LISINOPRIL 20 MG TAB PO SCH (09:57)
[2020-06-03] MEDS: CYANOCOBALAMIN 500 MCG TAB PO SCH (09:58)
[2020-06-03 12:00] VITALS: BP 139/75
[2020-06-03] MEDS: HEPARIN DRIP/D5W 100UNITS/ML 250 ML IV SCH (12:30)
[2020-06-03 16:00] VITALS: BP 152/85
[2020-06-03] MEDS: TAMSULOSIN HYDROCHLORIDE 0.4 MG CAP PO SCH (17:30)
[2020-06-03 18:44] LABS: INR 1.43 (0.9-1.15); Partial Thromboplastin Time 56.4 sec (23.0-31.2)
[2020-06-03] MEDS: DIPHENOXYLATE W/ATROPINE 2.5 MG TAB PO PRN (20:09)
[2020-06-03 21:00] VITALS: BP 153/94
[2020-06-03 23:35] VITALS: BP 153/94
[2020-06-03] MEDS: oxyCODONE HCL 5MG TAB PO PRN (23:54)
[2020-06-04] MEDS: MORPHINE SULF INJ 2 MG/ML SYRINGE 1ML IV PRN ×4 (01:25→20:50)
[2020-06-04] MEDS: HEPARIN DRIP/D5W 100UNITS/ML 250 ML IV SCH ×2 (01:51→18:30)
[2020-06-04] MEDS: ACCU-CHEK COMFORT CURVE STRIP VI SCH ×5 (04:00→20:00)
[2020-06-04 05:00] VITALS: BP 146/80
[2020-06-04] MEDS: InsuLIN REG 1unit/0.01ml Soln (100units/ml) SC SCH ×5 (05:03→20:50)
[2020-06-04 05:37] LABS: Basophils # (auto) 0 10 ^3/uL (0-0.2); Basophils % (auto) 0.2 % (0.0-2.0); Eosinophils # (auto) 0.1 10 ^3/uL (0-0.8); Eosinophils % (auto) 0.9 % (0.0-7.0); Hematocrit 27.7 % (41.0-53.0); Hemoglobin 9.3 g/dL (13.5-17.5); Lymphocytes % (auto) 16.3 % (10.0-50.0); Mean Corpuscular Hemoglobin 29.5 pg (28.0-32.0); Mean Corpuscular Hgb Conc. 33.4 g/dL (32.0-36.0); Mean Corpuscular Volume 88.1 fL (80.0-100.0); Monocytes # (auto) 0.7 10 ^3/uL (0-1.3); Monocytes % (auto) 11.3 % (0.0-12.0); Neutrophils # (auto) 4.3 10 ^3/uL (1.6-8.6); Neutrophils % (auto) 71.3 % (37.0-80.0); Nucleated Red Blood Cells % 0.2 %; Platelet Count (auto) 175 10^3/uL (140-450); Red Blood Cells 3.15 10^6/uL (4.5-5.90)
[2020-06-04 05:47] LABS: Red Cell Distribution Width 21.1 % (11.8-14.3)
[2020-06-04] MEDS: Glucerna Carbsteady SHAKE Vanilla 8oz PO SCH ×3 (08:06→18:17)
[2020-06-04] MEDS: oxyCODONE HCL 5MG TAB PO PRN ×2 (08:31→18:17)
[2020-06-04 08:36] VITALS: BP 148/81
[2020-06-04] MEDS: LISINOPRIL 20 MG TAB PO SCH (09:38)
[2020-06-04] MEDS: CYANOCOBALAMIN 500 MCG TAB PO SCH (09:38)
[2020-06-04] MEDS: FLORASTOR (S. BOULARDII) 250 MG CAP PO SCH (09:39)
[2020-06-04] MEDS: FINASTERIDE 5 MG TAB PO SCH (09:39)
[2020-06-04] MEDS: DULoxetine HCL 30 MG CAP PO SCH (09:39)
[2020-06-04 11:37] LABS: INR 1.46 (0.9-1.15)
[2020-06-04 11:40] LABS: Partial Thromboplastin Time 82.2 sec (23.0-31.2)
[2020-06-04] MEDS: DIPHENOXYLATE W/ATROPINE 2.5 MG TAB PO PRN ×2 (12:11→18:17)
[2020-06-04 12:35] VITALS: BP 138/69
[2020-06-04 16:48] VITALS: BP 151/91
[2020-06-04] MEDS: TAMSULOSIN HYDROCHLORIDE 0.4 MG CAP PO SCH (18:17)
[2020-06-04 19:04] LABS: INR 1.41 (0.9-1.15); Partial Thromboplastin Time 66.6 sec (23.0-31.2)
[2020-06-04] MEDS: MUPIROCIN 2% OINT 15gm or 22gm EACHNOSTRI SCH (21:05)
[2020-06-04 22:00] VITALS: BP 158/91
[2020-06-05] MEDS: DIPHENOXYLATE W/ATROPINE 2.5 MG TAB PO PRN (00:52)
[2020-06-05] MEDS: MORPHINE SULF INJ 2 MG/ML SYRINGE 1ML IV PRN ×5 (00:52→20:30)
[2020-06-05] MEDS: InsuLIN REG 1unit/0.01ml Soln (100units/ml) SC SCH ×6 (00:59→21:00)
[2020-06-05 01:47] LABS: INR 1.41 (0.9-1.15); Partial Thromboplastin Time 69.4 sec (23.0-31.2)
[2020-06-05] MEDS: oxyCODONE HCL 5MG TAB PO PRN ×2 (02:17→22:49)
[2020-06-05] MEDS: ACCU-CHEK COMFORT CURVE STRIP VI SCH ×6 (03:51→20:00)
[2020-06-05 05:00] VITALS: BP 178/88
[2020-06-05 06:14] LABS: INR 1.39 (0.9-1.15); Partial Thromboplastin Time 63.8 sec (23.0-31.2)
[2020-06-05] MEDS: Glucerna Carbsteady SHAKE Vanilla 8oz PO SCH ×3 (08:17→18:17)
[2020-06-05 09:40] VITALS: BP 156/79
[2020-06-05] MEDS: CYANOCOBALAMIN 500 MCG TAB PO SCH (09:56)
[2020-06-05] MEDS: FINASTERIDE 5 MG TAB PO SCH (09:57)
[2020-06-05] MEDS: DULoxetine HCL 30 MG CAP PO SCH (09:57)
[2020-06-05] MEDS: FLORASTOR (S. BOULARDII) 250 MG CAP PO SCH (09:58)
[2020-06-05] MEDS: LISINOPRIL 20 MG TAB PO SCH (09:59)
[2020-06-05] MEDS ORDERED: APIXABAN 5 MG TAB PO SCH (10:00)
[2020-06-05] MEDS ORDERED: glipiZIDE 5 MG TAB PO ONE (10:00)
[2020-06-05] MEDS: MUPIROCIN 2% OINT 15gm or 22gm EACHNOSTRI SCH ×2 (11:46→20:58)
[2020-06-05] MEDS: APIXABAN 5 MG TAB PO SCH ×2 (12:27→20:59)
[2020-06-05 13:00] VITALS: BP 142/92
[2020-06-05 16:16] VITALS: BP 144/91
[2020-06-05] MEDS: TAMSULOSIN HYDROCHLORIDE 0.4 MG CAP PO SCH (17:59)
[2020-06-05 21:55] VITALS: BP 158/99
[2020-06-06] MEDS: ACCU-CHEK COMFORT CURVE STRIP VI SCH ×4 (00:24→12:00)
[2020-06-06] MEDS: MORPHINE SULF INJ 2 MG/ML SYRINGE 1ML IV PRN ×2 (00:24→04:27)
[2020-06-06] MEDS: InsuLIN REG 1unit/0.01ml Soln (100units/ml) SC SCH ×4 (00:25→12:00)
[2020-06-06 05:18] VITALS: BP 151/79
[2020-06-06] MEDS ORDERED: glipiZIDE 5 MG TAB PO SCH (07:00)
[2020-06-06] MEDS: Glucerna Carbsteady SHAKE Vanilla 8oz PO SCH ×2 (08:00→12:00)
[2020-06-06 09:00] VITALS: BP 152/78
[2020-06-06] MEDS: APIXABAN 5 MG TAB PO SCH (09:10)
[2020-06-06] MEDS: DULoxetine HCL 30 MG CAP PO SCH (09:10)
[2020-06-06] MEDS: CYANOCOBALAMIN 500 MCG TAB PO SCH (09:11)
[2020-06-06] MEDS: FINASTERIDE 5 MG TAB PO SCH (09:11)
[2020-06-06] MEDS: LISINOPRIL 20 MG TAB PO SCH (09:14)
[2020-06-06] MEDS: FLORASTOR (S. BOULARDII) 250 MG CAP PO SCH (09:14)
[2020-06-06] MEDS: oxyCODONE HCL 5MG TAB PO PRN (09:16)
[2020-06-06] MEDS: MUPIROCIN 2% OINT 15gm or 22gm EACHNOSTRI SCH (09:42)
[2020-06-06 11:01] VITALS: BP 146/73
[2020-06-06 13:00] VITALS: BP 145/88
[2020-06-12] MEDS ORDERED: APIXABAN 5 MG TAB PO SCH (22:00)
== END 2020-06-06 14:10 | disposition home or self-care (01) | DRG 299 ==
LOC: EDBD 15:40 → ER 15:40 → TELE 15:41 → TELE-CENTR 23:08
PROVIDERS: ADMIT Hospitalist; ATTEND Internal Medicine
DX: I82.402 Acute embolism and thrombosis of unspecified deep veins of left lower extremity (principal); I26.99 Other pulmonary embolism without acute cor pulmonale; L03.116 Cellulitis of left lower limb; C25.9 Malignant neoplasm of pancreas, unspecified; C78.00 Secondary malignant neoplasm of unspecified lung; C78.7 Secondary malignant neoplasm of liver and intrahepatic bile duct; E44.0 Moderate protein-calorie malnutrition; R18.8 Other ascites; Z88.5 Allergy status to narcotic agent; Z88.8 Allergy status to other drugs, medicaments and biological substances; Z68.27 Body mass index [BMI] 27.0-27.9, adult; E11.649 Type 2 diabetes mellitus with hypoglycemia without coma; E78.5 Hyperlipidemia, unspecified; G89.29 Other chronic pain; I10 Essential (primary) hypertension; I48.91 Unspecified atrial fibrillation; J44.9 Chronic obstructive pulmonary disease, unspecified; K52.9 Noninfective gastroenteritis and colitis, unspecified; N20.0 Calculus of kidney; N40.0 Benign prostatic hyperplasia without lower urinary tract symptoms; Z79.01 Long term (current) use of anticoagulants; Z80.0 Family history of malignant neoplasm of digestive organs; Z83.3 Family history of diabetes mellitus; Z85.51 Personal history of malignant neoplasm of bladder; Z87.891 Personal history of nicotine dependence; D63.8 Anemia in other chronic diseases classified elsewhere
CPT/HCPCS: 36415; 71045; 71275; 73701; 80048; 80053; 80061; 81001; 82962; 83036; 83605; 84484; 85025; 85379; 85610; 85730; 87040; 87081; 87493; 93005; 93971; 99291; G0378; J0696; J1815; J1885; J2405; J3480; J3490; J7042